=== PATIENT | female | born 1950 | race Caucasian/White ===

== ENCOUNTER 2018-04-21 21:20 | Inpatient (IN) | payer MEDICARE ==
[2018-04-21] MEDS ORDERED: SODIUM CHLORIDE 0.9% 1,000 ML IV STA ×3 (21:53→23:06)
--- NOTE | 2018-04-21 22:09 | ED ---
Psych HPI - General Chief Complaint: Altered Mental Status Stated Complaint: pickup order Time Seen by Provider: 04/21/18 21:47 Source: patient, police, EMS Mode of arrival: EMS - History of Present Illness Initial Comments: This 68-year-old white female presents for psychiatric evaluation. She apparently was brought in for some abnormal behavior. She is unable to give me any history whatsoever. She is continuously rambling about gibberish and does not stop talking and will not answer any questions. Old records to relate a history of schizophrenia there may have been some noncompliance with medications noted as well. History once again is limited due to patient's condition. - Related Data Home Medications Medication Instructions Recorded Confirmed Gabapentin [Neurontin] 300 mg PO BID 04/21/18 04/21/18 Pantoprazole [Protonix] 40 mg PO DAILY 04/21/18 04/21/18 QUEtiapine FUMARATE [SEROquel XR] 50 mg PO HS 04/21/18 04/21/18 Raloxifene [Evista] 60 mg PO DAILY 04/21/18 04/21/18 Previous Rx's Medication Instructions Recorded Atorvastatin [Lipitor] 10 mg PO HS #30 tab 06/18/16 Allergies Allergy/AdvReac Type Severity Reaction Status Date / Time No Known Allergies Allergy Verified 04/21/18 23:01 Review of Systems ROS Statement: Those systems with pertinent positive or pertinent negative responses have been documented in the HPI. ROS Other: All systems not noted in ROS Statement are negative. Past Medical History Past Medical History: COPD, Hyperlipidemia, Musculoskeletal Disorder, Thyroid Disorder Additional Past Medical History / Comment(s): brittle teeth can not eat anything hard needs to have soft diet chronic kidney disease; Ostopenia History of Any Multi-Drug Resistant Organisms: None Reported Past Surgical History: Adenoidectomy, Breast Surgery, Section, Tonsillectomy Additional Past Surgical History / Comment(s): biopsy benign left breast,c section, rhinoplasty Past Anesthesia/Blood Transfusion Reactions: No Reported Reaction Additional Past Anesthesia/Blood Transfusion Reaction / Comment(s): DOES NOT EVER WANT A BLOOD TRANSFUSION Past Psychological History: Anxiety, Bipolar, Schizophrenia Smoking Status: Former smoker Past Alcohol Use History: None Reported Past Drug Use History: None Reported - Past Family History Father History Unknown: Yes Family Medical History: Myocardial Infarction ([place]) Brother(s) Family Medical History: Cancer Additional Family Medical History / Comment(s): Brother had testicular cancer. General Exam - General Exam Comments Initial Comments: GENERAL: The patient is well nourished but appears dehydrated. VITAL SIGNS: Heart rate, blood pressure, respiratory rate reviewed as recorded in nurse's notes. EYES: Pupils are round and reactive. Extraocular movements are intact. No conjunctival / lid redness or swelling. ENT: No external evidence of injury, swelling, or ecchymosis. Airway is patent. Mucous membranes are dry. NECK: Nontender. No swelling or evidence of injury. No subcutaneous emphysema. Trachea is midline. No thyroid mass. HEART: Regular rate and rhythm. Good peripheral pulses. LUNGS/CHEST: Breath sounds clear and equal bilaterally. No rales, rhonchi, or wheezes. No ecchymosis, subcutaneous emphysema, or tenderness. ABDOMEN: Abdomen soft without tenderness. No palpable masses or organomegaly. No peritoneal signs. No abdominal wall swelling or ecchymosis. EXTREMITIES: No extremity tenderness. Normal muscle tone and function. No thoracolumbar tenderness. NEUROLOGIC: Sensation is grossly intact. Cranial nerve exam reveals face is symmetrical, tongue is midline, speech is clear. SKIN: No abrasions or ecchymosis is noted. No induration or masses noted. PSYCHIATRIC: Alert but appears quite manic. She is continually talking without stopping her answering questions. The speech is nonsensical. She appears poorly groomed. Limitations: altered mental status Course Vital Signs 04/21/18 21:49 Temperature 98.9 F Pulse Rate 103 H Respiratory 18 Rate Blood Pressure 131/73 O2 Sat by Pulse 99 Oximetry Medical Decision Making - Medical Decision Making The patient was seen and examined. All diagnostics are reviewed. An IV is started and she is hydrated. The laboratory is obtained and does show that the patient is in acute renal failure with a creatinine over 4. This is markedly worsened as compared to previous. She apparently has had some renal disease in the past as well. Her CO2 is decreased consistent with dehydration. She is further hydrated in the ER. Case is discussed with Dr. Lr who is covering for her PCP and he recommends admission under the service of Dr. Altman. The chest x-ray does not show any acute process. It is felt as though she likely avoided proper fluid hydration due to her psychiatric condition and thus went into renal failure. She will be admitted with a psychiatric consult. - Lab Data Result diagrams: 04/21/18 22:20 04/21/18 22:20 Lab Results 04/21/18 04/21/18 Range/Units 22:20 22:20 WBC 10.2 (3.8-10.6) k/uL RBC 4.32 (3.80-5.40) m/uL Hgb 12.5 (11.4-16.0) gm/dL Hct 38.8 (34.0-46.0) % MCV 89.8 (80.0-100.0) fL MCH 28.9 (25.0-35.0) pg MCHC 32.1 (31.0-37.0) g/dL RDW 14.4 (11.5-15.5) % Plt Count 335 (150-450) k/uL Neutrophils % 83 % Lymphocytes % 11 % Monocytes % 5 % Eosinophils % 0 % Basophils % 0 % Neutrophils # 8.4 H (1.3-7.7) k/uL Lymphocytes # 1.1 (1.0-4.8) k/uL Monocytes # 0.5 (0-1.0) k/uL Eosinophils # 0.0 (0-0.7) k/uL Basophils # 0.0 (0-0.2) k/uL Sodium 137 (137-145) mmol/L Potassium 5.0 (3.5-5.1) mmol/L Chloride 98 (98-107) mmol/L Carbon Dioxide 17 L (22-30) mmol/L Anion Gap 22 mmol/L BUN 68 H (7-17) mg/dL Creatinine 4.40 H (0.52-1.04) mg/dL Est GFR (CKD-EPI)AfAm 11 (>60 ml/min/1.73 sqM) Est GFR (CKD-EPI)NonAf 10 (>60 ml/min/1.73 sqM) Glucose 94 (74-99) mg/dL Calcium 10.1 (8.4-10.2) mg/dL Total Bilirubin 0.9 (0.2-1.3) mg/dL AST 671 H (14-36) U/L ALT 138 H (9-52) U/L Alkaline Phosphatase 104 (38-126) U/L Total Protein 6.8 (6.3-8.2) g/dL Albumin 4.4 (3.5-5.0) g/dL Disposition Clinical Impression: Acute psychosis, Schizophrenia, Acute renal failure, Dehydration Disposition: ADMITTED IP TO THIS HOSP Condition: Fair Is patient prescribed a controlled substance at d/c from ED?: No Time of Disposition: 00:23 Decision Date: 04/22/18 Decision Time: 00:23
[2018-04-21 22:34] LABS: Basophils % (A) 0 %; Eosinophils % (A) 0 %; HCT 38.8 % (34.0-46.0); HGB 12.5 gm/dL (11.4-16.0); Lymphocytes # (A) 1.1 k/uL (1.0-4.8); Lymphocytes % (A) 11 %; MCH 28.9 pg (25.0-35.0); MCHC 32.1 g/dL (31.0-37.0); MCV 89.8 fL (80.0-100.0); Mean Platelet Volume 7.1; Monocytes # (A) 0.5 k/uL (0-1.0); Monocytes % (A) 5 %; Neutrophils # (A) 8.4 k/uL (1.3-7.7); Neutrophils % (A) 83 %; Platelet Count 335 k/uL (150-450); RBC 4.32 m/uL (3.80-5.40); RDW 14.4 % (11.5-15.5); WBC 10.2 k/uL (3.8-10.6)
[2018-04-21 22:48] LABS: Albumin 4.4 g/dL (3.5-5.0); Calcium 10.1 mg/dL (8.4-10.2); Total Bilirubin 0.9 mg/dL (0.2-1.3); Total Protein 6.8 g/dL (6.3-8.2)
[2018-04-21] MEDS ORDERED: SODIUM CHLORIDE 0.9% 1,000 ML with MVI, ADULT NO.4 WITH VIT K 10 ML, THIAMINE 100 MG, F... IV ONE ×4 (23:16)
--- NOTE | 2018-04-21 23:17 | XR ---
EXAMINATION TYPE: XR chest 2V DATE OF EXAM: 04/21/2018 COMPARISON: 06/06/2016 HISTORY: Altered mental status TECHNIQUE: Frontal and lateral views of the chest are obtained. FINDINGS: Heart and mediastinum are normal. Lungs are clear. Diaphragm is normal. Bony thorax is int act. There is no pleural effusion. IMPRESSION: Normal chest. No change.
[2018-04-22] MEDS ORDERED: NALOXONE 0.4 MG/ML 1 ML VIAL IV PRN (00:24)
[2018-04-22] MEDS ORDERED: ONDANSETRON 4 MG/2 ML VIAL IVP PRN (00:24)
[2018-04-22 01:44] LABS: Prothrombin Time 9.6 sec (9.0-12.0)
[2018-04-22 01:55] LABS: Partial Thromboplastin Time 19.6 sec (22.0-30.0)
[2018-04-22] MEDS: HALOPERIDOL 2 MG TAB PO PRN (04:44)
[2018-04-22] MEDS: LORazepam 2 MG/ML INJ IV PRN ×2 (04:46→14:00)
--- NOTE | 2018-04-22 07:31 | HP ---
HISTORY AND PHYSICAL I am covering for Dr. Peng. CHIEF COMPLAINT: Change in mental status. HISTORY OF PRESENT ILLNESS: This 68-year-old woman with a past medical history of multiple medical problems including COPD, hyperlipidemia, history of hypothyroidism, history of anxiety, bipolar, schizophrenia being followed by Dr. Peng in the outpatient setting was apparently taken for psychiatric evaluation. Apparently patient was barricaded in her home and the pricing specialist have to bring the patient . The patient had abnormal behavior. The patient is confused and restless at this time, even though not combative. The patient was found to be severely dehydrated. Creatinine was elevated up to 4 indicating acute renal failure and the patient admitted for further evaluation and treatment. Currently unable to obtain a clear cut history from the patient. Most of the history was taken by my discussion with staff and as well as ER physician and review of the chart. PAST MEDICAL HISTORY: History of COPD, hyperlipidemia, musculoskeletal disorder, hypothyroidism, history of brittle teeth, history of anxiety, bipolar, schizophrenia. MEDICATIONS: Medications prior to admission include home medications are: 1. Evista 60 mg p.o. daily. 2. Seroquel XR 50 mg at bedtime. 3. Protonix 40 mg daily. 4. Neurontin 300 mg b.i.d. 5. Lipitor 10 mg at bedtime. ALLERGIES: Allergies are none. Family history, social history, review of systems could not be taken. Per chart, previous history of smoking and family history of myocardial infarction. PHYSICAL EXAMINATION: The patient is conscious, confused, restless and disoriented. Pulse is 103, blood pressure 131/73, respiration 18, temperature 98.9, pulse ox 99% on room air. HEENT: Conjunctivae normal. Oral mucosa dry. Neck is no jugular venous distention, no carotid bruit. No lymph node enlargement. CARDIOVASCULAR: S1 and S2 muffled. No S3, no S4. RESPIRATORY: Breath sounds diminished at the bases. A few scattered rhonchi. No crackles. ABDOMEN: Soft, nontender. No mass palpable. LEGS: No edema, no swelling. NERVOUS SYSTEM: Higher functions as mentioned earlier. Moves all 4 limbs. No focal motor or sensory deficits. LYMPHATICS: No lymphadenopathy of the neck, axillae or groin. SKIN: No ulcer, rash or bleeding. LABS: CBC within normal limits. Otherwise, creatinine 4.4. Neutrophils 8.4. AST is 671, ALT is 138. ASSESSMENT: 1. Severe dehydration, probably because of diminished p.o. intake with acute renal failure possibly prerenal acute tubular necrosis. 2. Change in mental status, acute psychosis. 3. Elevated LFTs, AST ALT, possibly hepatitis. 4. History of chronic obstructive pulmonary disease. 5. Hyperlipidemia. 6. Degenerative joint disease. 7. Hypothyroidism. 8. History of anxiety, bipolar, depression. RECOMMENDATIONS AND DISCUSSION: In this 68-year-old woman who presented with multiple complex medical issues, will monitor the patient closely. Continue the current medications. Continue symptomatic treatment. Will initiate the current medications. Otherwise, IV fluids, supplement multivitamins, monitor the creatinine closely. I would also recommend a psychiatric consultation, also order a drug screen and UA also. Home medications also will be continued, p.r.n. Haldol may be used at this time for sedation. Otherwise, will continue to monitor. The overall prognosis is guarded as mentioned earlier and further recommendations to follow. We will monitor the renal functions very closely. See orders for further details. MMODL / IJN: [id number] / MTDD
[2018-04-22] MEDS ORDERED: QUEtiapine 25 MG TAB PO SCH (09:00)
[2018-04-22] MEDS: HEPARIN SODIUM,PORCINE 5,000 UNIT/ML 1 ML VIAL SQ SCH ×2 (09:56→21:56)
[2018-04-22] MEDS: GABAPENTIN 300 MG CAP PO SCH ×2 (09:57→21:55)
[2018-04-22] MEDS: RALOXIFENE 60 MG TAB PO SCH (09:57)
[2018-04-22] MEDS: PANTOPRAZOLE 40 MG TABLET PO SCH (09:57)
[2018-04-22 10:05] LABS: Basophils % (A) 0 %; Eosinophils % (A) 0 %; HCT 34.5 % (34.0-46.0); HGB 11.2 gm/dL (11.4-16.0); Lymphocytes # (A) 1.6 k/uL (1.0-4.8); Lymphocytes % (A) 18 %; MCH 29.5 pg (25.0-35.0); MCHC 32.3 g/dL (31.0-37.0); MCV 91.3 fL (80.0-100.0); Mean Platelet Volume 6.9; Monocytes # (A) 0.5 k/uL (0-1.0); Monocytes % (A) 6 %; Neutrophils # (A) 6.6 k/uL (1.3-7.7); Neutrophils % (A) 74 %; Platelet Count 267 k/uL (150-450); RBC 3.78 m/uL (3.80-5.40); RDW 14.4 % (11.5-15.5); WBC 8.9 k/uL (3.8-10.6)
[2018-04-22 11:12] LABS: Potassium 4.3 mmol/L (3.5-5.1)
--- NOTE | 2018-04-22 11:24 | P.CN ---
Psychiatric Consult - . Consult date: 04/22/18 Consult:: 04/22/18 11:12 Patient was seen for a psych consult regarding psychosis. Patient is not able to provide any reliable useful information. She rambles continuously which often does not make much sense. Her previous records indicate she was diagnosed with bipolar disorder. Her recent lab report shows elevated BUN, creatinine, AST, ALT neutrophils and decreased RBC and hemoglobin. She is currently on Seroquel 25 mg twice a day and Neurontin 300 mg twice a day, when necessary Tylenol in addition to other medications. Assessment: Probable bipolar disorder per records, currently quite psychotic, renal insufficiency and other physical problems. Suggestion: Management of physical problems including renal insufficiency and probable infection someplace. Can increase Seroquel to 50 mg twice a day. Use of Neurontin in renally impaired person can cause Neurontin toxicity and it is recommended that we stop Neurontin. Since patient has elevated liver enzymes, use of when necessary Tylenol can be dangerous and I suggested it be discontinued. I will reassess the patient tomorrow about her condition, medications and possible transfer to psychiatric unit.
[2018-04-22 11:38] LABS: Albumin 3.3 g/dL (3.5-5.0); Total Bilirubin 0.6 mg/dL (0.2-1.3); Total Protein 5.5 g/dL (6.3-8.2)
[2018-04-22] MEDS ORDERED: SODIUM CHLORIDE 0.9% 1,000 ML with MVI, ADULT NO.4 WITH VIT K 10 ML, THIAMINE 100 MG, F... IV ONE ×4 (15:28)
--- NOTE | 2018-04-22 17:10 | PN ---
PROGRESS NOTE DATE OF SERVICE: 04/22/2018. I am covering for Dr. Peng. HISTORY: This 68-year-old woman is admitted with change in mental status with significant renal failure possibly secondary to acute tubular necrosis secondary to dehydration and diminished p.o. intake. Patient continues to be confused and restless at this time. IV fluids are being given. Psychiatry is following the patient closely. No chest pain. PAST MEDICAL HISTORY: Reviewed. REVIEW OF SYSTEMS: Could not be taken because of the change in mental status and other medical issues as mentioned earlier. CURRENT MEDICATIONS: 1. Tylenol 650 every 6 hours p.r.n. 2. Lipitor 10 mg at bedtime. 3. Neurontin 300 mg b.i.d. 4. Haldol 2 mg every p.m. 5. Heparin 5 subcutaneous b.i.d. 6. Ativan 1 mg every 6 hours. 7. Narcan. 8. Zofran. 9. Protonix. PHYSICAL EXAM: Patient is alert, oriented x3. VITAL SIGNS: Pulse 74, blood pressure 116/63, respirations 18, temperature 97.2 , pulse ox 97% on room air. HEENT: Conjunctivae normal. Oral mucosa dry. NECK: No JVD. CARDIOVASCULAR: RESPIRATORY: Breath sounds diminished in the bases. Few scattered rhonchi. No crackles. ABDOMEN: Soft, nontender. LEGS: No edema. NERVOUS SYSTEM: Diffusely weak. LABS: WBC 8, hemoglobin 11.2, creatinine 3.2, and AST is 504, ALT is 122, ASSESSMENT: 1. Severe dehydration because of diminished p.o. intake with acute renal failure , possible prerenal factors and acute tubular necrosis. 2. Change in mental status, acute psychosis. 3. Elevated LFT, AST ALT, possibly hepatitis. 4. History of chronic obstructive pulmonary disease. 5. Hyperlipidemia. 6. Degenerative joint disease. 7. Hypothyroidism. 8. History of anxiety, bipolar, depression. RECOMMENDATIONS: Continue current medication, continue to monitor. Symptomatic treatment. Otherwise at this time, we will monitor closely. IV fluids. Monitor creatinine closely. Guarded prognosis because of multiple complex medical issues. Further recommendations to follow. MMODL / IJN: [id number] / MTDD
[2018-04-22 17:16] LABS: Glucose,Whole Blood 69 mg/dL (75-99)
[2018-04-22 17:22] LABS: Appearance,Urine Clear (Clear); Bilirubin,Urine Negative (Negative); Blood,Urine Moderate (Negative); Color,Urine Light Yellow; Glucose,Urine (UA) Negative (Negative); Ketones,Urine 1+ (Negative); Leukocyte Esterase,Urine Negative (Negative); Mucus,Urine Rare /hpf; Nitrite,Urine Negative (Negative); Protein,Urine Negative (Negative); RBC,Urine <1 /hpf (0-5); Specific Gravity,Urine 1.007 (1.001-1.035); Urobilinogen,Urine <2.0 mg/dL (<2.0); WBC,Urine 1 /hpf (0-5)
[2018-04-22 17:28] LABS: Amphetamine Screen,Urine Not Detected (NotDetected); Barbiturate Screen,Urine Not Detected (NotDetected); Benzodiazepines Screen,Urine Not Detected (NotDetected); Cocaine Screen,Urine Not Detected (NotDetected); Methadone Screen, Urine Not Detected (NotDetected); Opiate Screen,Urine Not Detected (NotDetected); Oxycodone Screen, Urine Not Detected (NotDetected); Phencyclidine Screen,Urine Not Detected (NotDetected); Tricyclic Antidepressant,Urine Not Detected (NotDetected); Urn Cannabinoid Scrn Not Detected (NotDetected)
[2018-04-22 17:34] LABS: Glucose,Whole Blood 86 mg/dL (75-99)
[2018-04-22] MEDS: QUEtiapine 50 MG TAB PO SCH (21:55)
[2018-04-22] MEDS: ATORVASTATIN 10 MG TAB PO SCH (21:55)
[2018-04-23 03:54] LABS: Hepatitis A Antibody IgM Non-Reactive (Non-Reactive); Hepatitis B Core IgM Non-Reactive (Non-Reactive)
[2018-04-23 05:04] LABS: Glucose,Whole Blood 104 mg/dL (75-99)
[2018-04-23] MEDS: HALOPERIDOL 2 MG TAB PO PRN (07:31)
[2018-04-23] MEDS: GABAPENTIN 300 MG CAP PO SCH ×2 (07:32→19:48)
[2018-04-23] MEDS: PANTOPRAZOLE 40 MG TABLET PO SCH (07:32)
[2018-04-23] MEDS: QUEtiapine 50 MG TAB PO SCH (07:32)
[2018-04-23] MEDS: RALOXIFENE 60 MG TAB PO SCH (07:33)
[2018-04-23] MEDS: HEPARIN SODIUM,PORCINE 5,000 UNIT/ML 1 ML VIAL SQ SCH ×2 (07:36→19:48)
[2018-04-23 09:42] LABS: Basophils % (A) 0 %; Eosinophils # (A) 0.1 k/uL (0-0.7); Eosinophils % (A) 2 %; HGB 10.6 gm/dL (11.4-16.0); Lymphocytes # (A) 1.5 k/uL (1.0-4.8); Lymphocytes % (A) 31 %; MCH 29.8 pg (25.0-35.0); MCHC 33.3 g/dL (31.0-37.0); MCV 89.5 fL (80.0-100.0); Monocytes # (A) 0.3 k/uL (0-1.0); Monocytes % (A) 5 %; Neutrophils % (A) 60 %; Platelet Count 284 k/uL (150-450); RBC 3.58 m/uL (3.80-5.40); RDW 14.3 % (11.5-15.5); WBC 4.9 k/uL (3.8-10.6)
[2018-04-23 09:59] LABS: Albumin 2.5 g/dL (3.5-5.0); Potassium 3.7 mmol/L (3.5-5.1); Total Bilirubin 0.3 mg/dL (0.2-1.3); Total Protein 4.5 g/dL (6.3-8.2)
[2018-04-23] MEDS ORDERED: HALOPERIDOL LACTATE 5 MG/ML 1 ML VIAL IM PRN (10:14)
--- NOTE | 2018-04-23 11:36 | P.CN ---
Psychiatric Consult - . Consult date: 04/23/18 Consult:: 04/23/18 11:33 Patient was seen for a follow-up psych consult. Apparently she has been refusing IV fluids and is dehydrated. Her blood pressure is also low. Patient is quite talkative with pressured speech and flight of ideas. 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 She thinks she is ready to go home if we can give her the prescription. Suggestion: Discontinue Seroquel since she is hypotensive and dehydrated. Can try risperidone 1 mg twice a day for mood stabilization.
--- NOTE | 2018-04-23 12:48 | P.NPCON ---
History of Present Illness - Reason for Consult acute renal failure - History of Present Illness Reason for consultation: Acute kidney injury History of present illness: Patient is a 68-year-old female seen in renal consultation for acute kidney injury. Her creatinine was 3.21 admission and is down to 1.63 today with IV hydration. Patient presented to the hospital with abnormal behavior. She does have history of schizophrenia. Psychiatry is following the patient. Patient is not a reliable historian. She is talking continuously and not really making sense. She has a sitter at bedside. Her oral intake has been fair. She has been voiding. She is quite restless. Urinalysis is quite benign. I don't see lithium or NSAIDs in her home medications. Vital signs are stable. General: The patient appeared well nourished and normally developed. HEENT: Head exam is unremarkable. Neck is without jugular venous distension. LUNGS: Lungs are clear to auscultation and percussion. Breath sounds decreased. HEART: Rate and Rhythm are regular. First and second heart sounds normal. No murmurs, rubs or gallops. ABDOMEN: Abdominal exam reveals normal bowel sounds. Non-tender and non- distended. No evidence of peritonitis. EXTREMITITES: No clubbing, cyanosis, or edema. Past Medical History Past Medical History: COPD, Hyperlipidemia, Musculoskeletal Disorder, Thyroid Disorder Additional Past Medical History / Comment(s): brittle teeth can not eat anything hard needs to have soft diet chronic kidney disease; Ostopenia, son stted pt was told to stop taking thyroid meds. History of Any Multi-Drug Resistant Organisms: None Reported Past Surgical History: Adenoidectomy, Breast Surgery, Section, Tonsillectomy Additional Past Surgical History / Comment(s): biopsy left breast-benign,c section, rhinoplasty Past Anesthesia/Blood Transfusion Reactions: No Reported Reaction Additional Past Anesthesia/Blood Transfusion Reaction / Comment(s): DOES NOT EVER WANT A BLOOD TRANSFUSION Smoking Status: Current every day smoker - Past Family History Father History Unknown: Yes Family Medical History: Myocardial Infarction ([place]) Brother(s) Family Medical History: Cancer Additional Family Medical History / Comment(s): Brother had testicular cancer. Medications and Allergies Home Medications Medication Instructions Recorded Confirmed Type Atorvastatin [Lipitor] 10 mg PO HS #30 tab 06/18/04/21/18 Rx Gabapentin [Neurontin] 300 mg PO BID 04/21/18 04/21/18 History Pantoprazole [Protonix] 40 mg PO DAILY 04/21/18 04/21/18 History QUEtiapine FUMARATE [SEROquel XR] 50 mg PO HS 04/21/18 04/21/18 History Raloxifene [Evista] 60 mg PO DAILY 04/21/18 04/21/18 History Allergies Allergy/AdvReac Type Severity Reaction Status Date / Time No Known Allergies Allergy Verified 04/21/18 23:01 Physical Exam Vitals: Vital Signs Temp Pulse Resp BP Pulse Ox 04/23/18 05:53 96.6 F L 61 16 103/59 100 04/22/18 23:14 97.9 F 64 16 94/51 99 04/22/18 16:04 97.9 F 82 16 114/64 100 Intake and Output 04/22/18 04/23/18 04/23/18 22:59 06:59 14:59 Other: Voiding Method Bedside Commode Bedside Commode Bedside Commode # Voids 1 1 # Bowel Movements 1 Results - Lab Results Most recent lab results Calcium 8.0 mg/dL (8.4-10.2) L 04/23/18 09:16 04/23/18 09:16 04/23/18 09:16 Assessment and Plan Plan: Assessment: 1. Nonoliguric acute kidney injury mostly prerenal improved with IV hydration. Creatinine was 3.1 admission and is down to 1.63 today. Urinalysis is quite benign. 2. Rule out chronic kidney disease. Creatinine was in the range of 1.2-1.3 in 2016. 3. History of schizophrenia. Psychiatry following. Started on risperidone today. Seroquel discontinued. 4. Metabolic acidosis secondary to acute kidney injury. Improved. Plan: Continue with normal saline at 100 mL an hour as patient allows. Avoid nephrotoxic agents and hypotensive episodes. Repeat electrolytes in the morning. Thank you for the consultation. I will continue to follow the patient with you during her hospital stay.
[2018-04-23] MEDS: risperiDONE 1 MG TAB PO SCH ×2 (13:01→19:48)
[2018-04-23] MEDS: SODIUM CHLORIDE 0.9% 1,000 ML IV SCH ×2 (14:17→19:49)
[2018-04-23 14:57] VITALS: BMI 19.5
--- NOTE | 2018-04-23 15:42 | CT ---
EXAMINATION TYPE: CT brain wo con DATE OF EXAM: 04/23/2018 COMPARISON: NONE INDICATION: mental status changes DLP: 748.2 mGycm, Automated exposure control for dose reduction was used. CONTRAST: None CT of the brain is performed utilizing 3 mm thick sections through the posterior fossa and 3 mm thick sections through the remaining calvarium. Study is performed within 24 hours of arrival to the hosp [facility]. No abnormal hyperdensity is present to suggest an acute intracranial hemorrhage. No mass lesion is evident. No acute infarcts are evident. Ventricles and sulci are appropriate for the patient age. Paranasal sinuses and mastoid air cells within the [id number] are clear. IMPRESSIONS: 1. Normal CT Brain
--- NOTE | 2018-04-23 16:01 | PN ---
PROGRESS NOTE I am covering for Dr. Peng. DATE OF SERVICE: 04/23/2018 This 68-year-old woman who was admitted with acute psychotic features and mental status changes also had acute renal failure, possibly secondary to diminished p.o. intake. After IV fluids, creatinine is improving significantly. Sodium is slightly improved. Patient is still verbose and confused and disoriented. On exam, pulse is 61, blood pressure 103/59, respirations 16, temperature 96.6, pulse ox 100% on room air. HEENT: Conjunctivae normal. NECK: No jugular venous distention. CARDIOVASCULAR SYSTEM: S1, S2 muffled. RESPIRATORY SYSTEM: Breath sounds diminished at the bases. No rhonchi. No crackles. ABDOMEN: Soft, non-tender. LEGS: No edema. No swelling. NERVOUS SYSTEM: No focal deficit. LABS: WBC 4.9, hemoglobin 10.6, creatinine 1.6. AST is 282 and ALT is 96, improving. ASSESSMENT: 1. Severe dehydration because of diminished oral intake with acute renal failure, possibly prerenal factors, acute tubular necrosis. 2. Change in mental status, acute psychosis. 3. Elevated liver function tests AST, ALT; possibly hepatitis of undetermined etiology, improving. 4. History of chronic obstructive pulmonary disease. 5. Hyperlipidemia. 6. Degenerative joint disease. 7. Hypothyroidism. 8. History of anxiety, bipolar, depression. RECOMMENDATIONS AND DISCUSSION: I recommend to continue current medication, continue symptomatic treatment. Closely follow with Cardiology. Continue with the cautious IV hydration. I will cut down the IV fluids at this time. Repeat labs will be ordered tomorrow and Dr. Peng will follow. MMODL / IJN: [id number] /
[2018-04-23] MEDS: ATORVASTATIN 10 MG TAB PO SCH (19:48)
[2018-04-24] MEDS: SODIUM CHLORIDE 0.9% 1,000 ML IV SCH ×2 (05:30→18:32)
[2018-04-24] MEDS: risperiDONE 1 MG TAB PO SCH ×2 (08:34→20:09)
[2018-04-24] MEDS: GABAPENTIN 300 MG CAP PO SCH ×2 (08:34→20:09)
[2018-04-24] MEDS: RALOXIFENE 60 MG TAB PO SCH (08:34)
[2018-04-24] MEDS: PANTOPRAZOLE 40 MG TABLET PO SCH (08:34)
[2018-04-24] MEDS: HEPARIN SODIUM,PORCINE 5,000 UNIT/ML 1 ML VIAL SQ SCH ×2 (08:36→20:09)
--- NOTE | 2018-04-24 11:35 | P.PN ---
Subjective Patient is seen in follow for acute kidney injury. Renal function improving with IV hydration with creatinine down to 1.63 as of yesterday. She's currently maintained on normal saline at 100 mL an hour. Patient still continues to talk continuously and is not really making sense. Vital signs are stable. General: The patient appeared well nourished and normally developed. HEENT: Head exam is unremarkable. Neck is without jugular venous distension. LUNGS: Lungs are clear to auscultation and percussion. Breath sounds decreased. HEART: Rate and Rhythm are regular. First and second heart sounds normal. No murmurs, rubs or gallops. ABDOMEN: Abdominal exam reveals normal bowel sounds. Non-tender and non- distended. No evidence of peritonitis. EXTREMITITES: No clubbing, cyanosis, or edema. Objective - Vital Signs Vital signs: Vital Signs Temp 97.4 F L 04/24/18 07:00 Pulse 80 04/24/18 07:00 Resp 16 04/24/18 07:00 BP 124/71 04/24/18 07:00 Pulse Ox 97 04/24/18 07:00 Intake & Output 04/23/18 04/24/18 04/24/18 18:59 06:59 18:59 Intake Total 550 Output Total 2 Balance 548 Weight 49.895 kg Intake: Oral 550 Output: Urine/Stool Mix 2 Other: Voiding Method Bedside Commode Bedside Commode Bedside Commode # Voids 3 1 - Labs CBC & Chem 7: 04/23/18 09:16 04/23/18 09:16 Assessment and Plan Plan: Assessment: 1. Nonoliguric acute kidney injury mostly prerenal improved with IV hydration. Creatinine was 3.1 admission and is down to 1.63 as of yesterday. Urinalysis is quite benign. 2. Rule out chronic kidney disease. Creatinine was in the range of 1.2-1.3 in 2016. 3. History of schizophrenia. Psychiatry following. 4. Metabolic acidosis secondary to acute kidney injury. Improved. Plan: Continue with normal saline at 100 mL an hour. Avoid nephrotoxic agents and hypotensive episodes. Repeat electrolytes in the morning.
--- NOTE | 2018-04-24 15:12 | P.CN ---
Psychiatric Consult - . Consult date: 04/24/18 Consult:: 04/24/18 15:05 Patient was seen for a follow-up psychiatric consult. Today patient looks brighter, has better hygiene and is more cooperative. She has IV fluid going on. She also reports that she feels better. She said she lives with her and son, has her own psychiatrist who prescribes her medication and also sees a therapist. She requested not to make any changes on her medications she is taking now since she is feeling better. She is taking her risperidone and does not have any adverse effect. This is a white female who was seen in her bed. She is polite friendly cheerful and cooperative. She does not show any psychomotor agitation or retardation. Her speech is spontaneous and over inclusive. Her mood is euthymic to cheerful and affect is appropriate to the thought content. She refused to tell me the job she is doing or the car she is driving which came up in the conversation. She continues to deny suicide and homicide thoughts. She is oriented with adequate memory concentration etc. Assessment: Patient has improved quite a bit and she does not think she wants to come to psych unit upon discharge. Suggestion: Continue risperidone 1 mg twice a day. Patient can be discharged when medically cleared. Please provide a prescription for risperidone 1 mg twice a day for at least 15 days, for Neurontin if necessary and schedule an outpatient psychiatry appointment within 1 week of discharge.
[2018-04-24] MEDS: ATORVASTATIN 10 MG TAB PO SCH (20:09)
[2018-04-25] MEDS: ACETAMINOPHEN TAB 325 MG TAB PO PRN ×2 (05:00→13:54)
[2018-04-25] MEDS: SODIUM CHLORIDE 0.9% 1,000 ML IV SCH (05:02)
[2018-04-25 07:40] LABS: Basophils % (A) 0 %; Eosinophils # (A) 0.2 k/uL (0-0.7); Eosinophils % (A) 3 %; HCT 38.3 % (34.0-46.0); HGB 12.3 gm/dL (11.4-16.0); Lymphocytes # (A) 2.3 k/uL (1.0-4.8); Lymphocytes % (A) 43 %; MCH 28.9 pg (25.0-35.0); MCHC 32.2 g/dL (31.0-37.0); MCV 89.8 fL (80.0-100.0); Mean Platelet Volume 7.1; Monocytes # (A) 0.4 k/uL (0-1.0); Monocytes % (A) 7 %; Neutrophils # (A) 2.4 k/uL (1.3-7.7); Neutrophils % (A) 44 %; Platelet Count 317 k/uL (150-450); RBC 4.26 m/uL (3.80-5.40); RDW 14.4 % (11.5-15.5); WBC 5.4 k/uL (3.8-10.6)
[2018-04-25 07:51] LABS: Albumin 2.8 g/dL (3.5-5.0); Calcium 8.5 mg/dL (8.4-10.2); Magnesium 1.8 mg/dL (1.6-2.3); Potassium 4.3 mmol/L (3.5-5.1); Total Bilirubin 0.3 mg/dL (0.2-1.3); Total Protein 4.9 g/dL (6.3-8.2)
[2018-04-25] MEDS: RALOXIFENE 60 MG TAB PO SCH (07:59)
[2018-04-25] MEDS: PANTOPRAZOLE 40 MG TABLET PO SCH (07:59)
[2018-04-25] MEDS: risperiDONE 1 MG TAB PO SCH (07:59)
[2018-04-25] MEDS: GABAPENTIN 300 MG CAP PO SCH ×2 (07:59→22:01)
[2018-04-25] MEDS: HEPARIN SODIUM,PORCINE 5,000 UNIT/ML 1 ML VIAL SQ SCH ×2 (08:01→22:01)
--- NOTE | 2018-04-25 09:32 | P.PN ---
Subjective Patient is seen in follow for acute kidney injury. Renal function improving with IV hydration with creatinine down to 0.99 today. She's currently maintained on normal saline at 100 mL an hour. No significant improvement in her mentation. She talks continuously and is not making much sense. Vital signs are stable. General: The patient appeared well nourished and normally developed. HEENT: Head exam is unremarkable. Neck is without jugular venous distension. LUNGS: Lungs are clear to auscultation and percussion. Breath sounds decreased. HEART: Rate and Rhythm are regular. First and second heart sounds normal. No murmurs, rubs or gallops. ABDOMEN: Abdominal exam reveals normal bowel sounds. Non-tender and non- distended. No evidence of peritonitis. EXTREMITITES: No clubbing, cyanosis, or edema. Objective - Vital Signs Vital signs: Vital Signs Temp 97.4 F L 04/25/18 06:00 Pulse 99 04/25/18 06:00 Resp 16 04/25/18 06:00 BP 128/83 04/25/18 06:00 Pulse Ox 96 04/25/18 06:00 Intake & Output 04/24/18 04/25/18 04/25/18 18:59 06:59 18:59 Intake Total 200 1600 Balance 200 1600 Intake: Intake, IV Titration 1600 Amount Sodium Chloride 0.9% 1, 1600 000 ml @ 100 mls/hr IV . Q10H [facility] Rx#:[id number] Oral 200 Other: Voiding Method Bedside Commode # Voids 3 # Bowel Movements 2 - Labs CBC & Chem 7: 04/25/18 07:03 04/25/18 07:03 Labs: Abnormal Lab Results - Last 24 Hours (Table) 04/25/18 Range/Units 07:03 Chloride 111 H (98-107) mmol/L BUN 19 H (7-17) mg/dL AST 153 H (14-36) U/L ALT 97 H (9-52) U/L Total Protein 4.9 L (6.3-8.2) g/dL Albumin 2.8 L (3.5-5.0) g/dL Assessment and Plan Plan: Assessment: 1. Nonoliguric acute kidney injury mostly prerenal improved with IV hydration. Creatinine was 3.1 admission and is down to 0.99 today. Urinalysis is quite benign. 2. Rule out chronic kidney disease. Creatinine was in the range of 1.2-1.3 in 2016. 3. History of schizophrenia. Psychiatry following. 4. Metabolic acidosis secondary to acute kidney injury. Improved. Plan: I will decrease the rate of 0.9 saline to 50 mL an hour. Avoid nephrotoxic agents and hypotensive episodes. Repeat electrolytes in the morning.
--- NOTE | 2018-04-25 11:38 | P.CN ---
Psychiatric Consult - . Consult date: 04/25/18 Consult:: 04/25/18 11:36 Patient was seen for a follow-up psych consult. Patient is quite restless and agitated, talkative, refuses to follow directions and is uncooperative. She also has pressured speech, elated mood and is grandiose. Suggestion: Since patient refuses to come to psych unit, which she needs, she needs to be petitioned by the nurse or her family and has to have flustered and then she can be transferred to psychiatric unit.
--- NOTE | 2018-04-25 13:30 | HP ---
HISTORY AND PHYSICAL ADMITTING NOTE: Patient was admitted during my absence for acute renal failure. She has a long- standing history of mental health issues as well. Her renal status is probably prerenal. MMODL / IJN: [id number] /
--- NOTE | 2018-04-25 13:33 | PN ---
PROGRESS NOTE DATE OF SERVICE: 04/24/2018 CHIEF COMPLAINT: Renal failure and schizophrenia. HISTORY OF PRESENT ILLNESS: This lady is fully awake and alert, but inappropriate. BUN and creatinine are improving with IV rehydration. PHYSICAL EXAM: Chest is clear. Cardiac exam is normal. Abdomen is soft, nontender. IMPRESSION: 1. Prerenal azotemia. 2. Schizophrenia. PLAN: Continue with IV fluids and continue to monitor renal function. She is difficult to manage. MMODL / IJN: [id number] /
[2018-04-25] MEDS: HALOPERIDOL 2 MG TAB PO PRN ×2 (13:54→22:27)
[2018-04-25] MEDS: risperiDONE 2 MG TAB PO SCH ×2 (14:19→22:01)
[2018-04-25 16:51] LABS: Hepatitis A Antibody IgM Non-Reactive (Non-Reactive); Hepatitis B Core IgM Non-Reactive (Non-Reactive); Hepatitis C IgG Antibody Non-Reactive (Non-Reactive)
--- NOTE | 2018-04-25 18:39 | PN ---
PROGRESS NOTE CHIEF COMPLAINT: Renal failure and schizophrenia. HISTORY OF PRESENT ILLNESS: This lady is becoming more and more agitated. Renal function has improved with rehydration. Her liver functions are elevated, and this will be studied. Calcium is also slightly low and she is anemic. Review of systems cannot be obtained due to her agitated and confused behavior and state. Chest is clear. Cardiac exam is normal. The abdomen is soft and non-tender. IMPRESSION: 1. Renal failure. 2. Dehydration. 3. Elevated liver function studies. 4. Hypocalcemia. 5. Anemia. PLAN: Work on discharge plan. She is being seen by Psychiatry and they want to commit her to inpatient psychiatric care. MMODL / IJN: [id number] /
[2018-04-25] MEDS: ATORVASTATIN 10 MG TAB PO SCH (22:01)
[2018-04-25 23:06] VITALS: RESP 24
[2018-04-26] MEDS: SODIUM CHLORIDE 0.9% 1,000 ML IV SCH (02:01)
[2018-04-26 06:25] VITALS: BP 137/82; PULSE 78; TEMP 96.5
[2018-04-26] MEDS: ACETAMINOPHEN TAB 325 MG TAB PO PRN (06:48)
[2018-04-26 08:17] LABS: Basophils % (A) 0 %; Eosinophils # (A) 0.2 k/uL (0-0.7); Eosinophils % (A) 3 %; HCT 38.6 % (34.0-46.0); HGB 12.7 gm/dL (11.4-16.0); Lymphocytes # (A) 2.3 k/uL (1.0-4.8); Lymphocytes % (A) 40 %; MCH 29.6 pg (25.0-35.0); MCHC 32.8 g/dL (31.0-37.0); MCV 90.2 fL (80.0-100.0); Mean Platelet Volume 7.7; Monocytes # (A) 0.3 k/uL (0-1.0); Monocytes % (A) 6 %; Neutrophils # (A) 2.7 k/uL (1.3-7.7); Neutrophils % (A) 48 %; Platelet Count 306 k/uL (150-450); RBC 4.28 m/uL (3.80-5.40); RDW 14.9 % (11.5-15.5); WBC 5.7 k/uL (3.8-10.6)
[2018-04-26 08:31] LABS: Albumin 2.8 g/dL (3.5-5.0); Potassium 4.2 mmol/L (3.5-5.1); Total Bilirubin 0.4 mg/dL (0.2-1.3); Total Protein 5.1 g/dL (6.3-8.2)
[2018-04-26] MEDS: GABAPENTIN 300 MG CAP PO SCH (08:40)
[2018-04-26] MEDS: RALOXIFENE 60 MG TAB PO SCH (08:40)
[2018-04-26] MEDS: PANTOPRAZOLE 40 MG TABLET PO SCH (08:40)
[2018-04-26] MEDS: HEPARIN SODIUM,PORCINE 5,000 UNIT/ML 1 ML VIAL SQ SCH (08:40)
[2018-04-26] MEDS: LORazepam 2 MG/ML INJ IV PRN (08:41)
[2018-04-26] MEDS: risperiDONE 2 MG TAB PO SCH (08:41)
--- NOTE | 2018-04-26 12:42 | PN ---
PROGRESS NOTE DATE OF SERVICE: 04/26/18 CHIEF COMPLAINT: Renal failure and schizophrenia. HISTORY OF PRESENT ILLNESS: This lady is stable and she has been seen by Psychiatry. She is being petitioned and she will either go to the psych floor or be sent to inpatient facility out of the area. PHYSICAL EXAM: Is otherwise unchanged. She is very disoriented. IMPRESSION: 1. Acute psychosis. 2. Prerenal azotemia. 3. Dehydration. PLAN: The patient petitioned into inpatient psych. MMDILIP / GORDONN: [id number] /
--- NOTE | 2018-04-27 22:11 | DS ---
DISCHARGE SUMMARY CHIEF COMPLAINT: Renal failure, dehydration and schizophrenia. HISTORY OF PRESENT ILLNESS AND PHYSICAL EXAM: Details of this lady's history and physical can be found in the initial workup. LABORATORY STUDIES: While she was in a hospital she had laboratory studies, details of which can be found in the laboratory section of the chart. COURSE IN HOSPITAL: After admission she was placed on bedrest, started on intravenous fluids and she was seen by med renal. BUN and creatinine came down with hydration. She remained very agitated and inappropriate and she was seen by Psychiatry. It was felt that she could benefit from inpatient psychiatric treatment and she was transferred to the psych floor on the . FINAL DIAGNOSES: 1. Prerenal azotemia. 2. Dehydration. 3. Schizophrenia. OPERATIONS: None. CONSULTATIONS: Nephrology and psychiatry. She is improved. MMODL / GORDONN: [id number] /
--- NOTE | 2018-05-17 17:23 | DS ---
DISCHARGE SUMMARY CHIEF COMPLAINT: Mental status changes and renal failure with dehydration. HISTORY OF PRESENT ILLNESS AND PHYSICAL EXAM: Details of this lady's history and physical can be found in the initial workup. LABORATORY STUDIES: While she was in a hospital she had laboratory studies, details which can be found in the laboratory section of chart. COURSE IN HOSPITAL: After admission she was placed on bedrest and started on intravenous fluids with hydration. Her BUN and creatinine came down to near normal. She remained extremely agitated and psychotic and seen by Psychiatry and arrangements were made for her to be transferred to psych unit on April 26. FINAL DIAGNOSES: 1. Mental status changes. 2. Acute psychosis. 3. Schizophrenia. 4. Dehydration. 5. Prerenal azotemia. 6. Chronic remove chronic renal failure. OPERATIONS: None. CONSULTATION: Med renal and psychiatry. She is improved. MMODL / IJN: [id number] /
== END 2018-04-26 13:36 | DRG 683 ==
LOC: EC 21:20 → 4MS4W 04-22 00:24
PROVIDERS: ADMIT Family Medicine; ATTEND Family Medicine
DX: N17.9 Acute kidney failure, unspecified (principal); F23 Brief psychotic disorder; E87.2 Acidosis; E86.0 Dehydration; J44.9 Chronic obstructive pulmonary disease, unspecified; E78.5 Hyperlipidemia, unspecified; E03.9 Hypothyroidism, unspecified; F41.9 Anxiety disorder, unspecified; F31.9 Bipolar disorder, unspecified; M19.90 Unspecified osteoarthritis, unspecified site; D64.9 Anemia, unspecified; R94.5 Abnormal results of liver function studies; E83.51 Hypocalcemia; F17.200 Nicotine dependence, unspecified, uncomplicated; I95.9 Hypotension, unspecified; Z79.899 Other long term (current) drug therapy; Z82.49 Family history of ischemic heart disease and other diseases of the circulatory system; Z98.890 Other specified postprocedural states
CPT/HCPCS: 36415; 70450; 71046; 80053; 80074; 80306; 81001; 82075; 82140; 83735; 85025; 85610; 85730; 86705; 86709; 86803; 96361; 96365; 96366; 96375; 96376; 99285

== ENCOUNTER 2018-04-26 12:39 | Inpatient (IN) | payer MEDICARE ==
[2018-04-26] MEDS ORDERED: MAG HYDROX/AL HYDROX/SIMETH 30 ML CUP PO PRN (14:40)
[2018-04-26] MEDS ORDERED: MAGNESIUM HYDROXIDE 2,400 MG/10 ML CUP PO PRN (14:40)
[2018-04-26] MEDS ORDERED: OLANZapine 5 MG TAB PO ONE ×2 (15:00→21:00)
[2018-04-26] MEDS: ATORVASTATIN 10 MG TAB PO SCH (21:17)
[2018-04-26] MEDS: GABAPENTIN 300 MG CAP PO SCH (21:17)
[2018-04-26 22:34] LABS: Cholesterol 151 mg/dL (<200); HDL Cholesterol 54 mg/dL (40-60); LDL Cholesterol,Calculated 64 mg/dL (0-99); Triglycerides 166 mg/dL (<150)
[2018-04-27] MEDS: LORazepam 1 MG TAB PO PRN ×2 (00:09→15:10)
[2018-04-27] MEDS: LEVOTHYROXINE 125 MCG TAB PO SCH (05:36)
[2018-04-27] MEDS: PANTOPRAZOLE 40 MG TABLET PO SCH (08:39)
[2018-04-27] MEDS: RALOXIFENE 60 MG TAB PO SCH (08:39)
[2018-04-27] MEDS: GABAPENTIN 300 MG CAP PO SCH ×2 (08:39→20:00)
[2018-04-27] MEDS ORDERED: OLANZapine 10 MG TAB PO SCH ×2 (09:00→21:00)
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
--- NOTE | 2018-04-27 18:41 | CONS ---
CONSULTATION HISTORY OF PRESENT ILLNESS: This lady is transferred to the psych unit for management of her schizophrenia and bipolar depression. REVIEW OF SYSTEMS: She is not offering up any complaints at this time. PHYSICAL EXAM: Her vital signs are normal. Head, ears, eyes, nose, mouth, and throat were normal except for a small lesion in the cheek just below the lateral corner of the left eye. Chest is clear to auscultation. Cardiac exam demonstrates normal sinus rhythm. There are no murmurs or extra sounds. The abdomen is soft, nontender. Extremities normal. IMPRESSION: 1. Schizophrenia, paranoid type. 2. Bipolar depression. RECOMMENDATIONS: Continue with psychiatric treatment. MMODL / IJN: [id number] /
[2018-04-27] MEDS: ATORVASTATIN 10 MG TAB PO SCH (20:00)
[2018-04-28] MEDS: LORazepam 1 MG TAB PO PRN ×2 (01:53→22:27)
[2018-04-28] MEDS: LEVOTHYROXINE 125 MCG TAB PO SCH (05:28)
[2018-04-28] MEDS: PANTOPRAZOLE 40 MG TABLET PO SCH (08:43)
[2018-04-28] MEDS: GABAPENTIN 300 MG CAP PO SCH ×3 (08:43→21:14)
[2018-04-28] MEDS: RALOXIFENE 60 MG TAB PO SCH (08:43)
--- NOTE | 2018-04-28 09:20 | P.PN ---
Progress Note - Text Progress Note Date: 04/28/18 Patient was seen for a follow-up examination. She continues to be very talkative and intrusive and insists that she is doing well and is ready to go home. Patient's labwork indicates she is hypothyroid and was started on Synthroid. She is on Lipitor for hyperlipidemia and is on Zyprexa 10 mg at bedtime. She is on Neurontin 300 mg twice a day. She is on several other medications for other physical problems. Her previous records indicate she was on Haldol without any adverse effects. This is a white ambulatory female with adequate hygiene. She is very talkative with pressured speech and flight of ideas. Her mood is elated and affect is appropriate to the thought content. She denies suicide and homicide thoughts. She denies hallucinations. 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 She is well oriented with adequate memory. Her insight is very poor and judgment is impaired as evidenced by her psychotic thinking. Diagnostic impression: Bipolar 1 disorder most recent episode manic with psychotic features F 31.2. NKDA. Hyperlipidemia. GERD. Hypothyroidism. Plan: Change Zyprexa to Haldol since she has hyperlipidemia. Increase Neurontin to 600 mg twice a day. Continue groups and other therapies.
[2018-04-28] MEDS ORDERED: HALOPERIDOL 5 MG TAB PO PRN (10:33)
[2018-04-28] MEDS ORDERED: HALOPERIDOL 5 MG TAB ONE ×2 (10:34→10:35)
[2018-04-28] MEDS: HALOPERIDOL 5 MG TAB PO PRN (16:34)
[2018-04-28] MEDS: HALOPERIDOL 5 MG TAB PO SCH ×2 (21:01→21:14)
[2018-04-28] MEDS: ATORVASTATIN 10 MG TAB PO SCH ×2 (21:01→21:14)
[2018-04-28] MEDS: ACETAMINOPHEN TAB 325 MG TAB PO PRN (23:37)
[2018-04-29] MEDS: ACETAMINOPHEN TAB 325 MG TAB PO PRN ×3 (05:05→21:09)
[2018-04-29] MEDS: LEVOTHYROXINE 125 MCG TAB PO SCH (05:06)
[2018-04-29] MEDS: RALOXIFENE 60 MG TAB PO SCH (08:08)
[2018-04-29] MEDS: PANTOPRAZOLE 40 MG TABLET PO SCH (08:09)
[2018-04-29] MEDS: GABAPENTIN 300 MG CAP PO SCH ×2 (08:09→20:59)
[2018-04-29] MEDS: HALOPERIDOL 5 MG TAB PO PRN (08:11)
[2018-04-29] MEDS: LORazepam 1 MG TAB PO PRN ×2 (08:11→23:54)
--- NOTE | 2018-04-29 10:24 | P.PN ---
Progress Note - Text Progress Note Date: 04/29/18 Patient was seen for a follow up exam.She had refused her HS haldol last night and got PRN Ativan and haldol this AM. She is a little quieter and more cooperative now. She has not been attending all groups. She has been getting agitated, threatening law suits etc. This is a white ambulatory female with adequate hygiene. She gets hyperactive, talkative with pressured speech, flight of ideas etc. Mood is cheerful and affect is increased in intensity. She denies suicidal and homicidal thoughts. She is quite grandiose. She is well oriented with adequate memory, general knowledge etc. Her insight is poor and judgement is quite impaired. Plan: Continue Neurontin 600 mg twice a day, change Haldol 10 mg at bedtime to 5 mg 3 times a day, groups and other therapies.
[2018-04-29 14:53] LABS: Hemoglobin A1C 5.4 % (4.0-6.0)
[2018-04-29] MEDS: HALOPERIDOL 5 MG TAB PO SCH ×2 (15:59→20:59)
[2018-04-29] MEDS: ATORVASTATIN 10 MG TAB PO SCH (20:59)
[2018-04-30] MEDS: LEVOTHYROXINE 125 MCG TAB PO SCH (05:14)
[2018-04-30] MEDS: ACETAMINOPHEN TAB 325 MG TAB PO PRN (05:14)
[2018-04-30] MEDS: RALOXIFENE 60 MG TAB PO SCH (08:31)
[2018-04-30] MEDS: HALOPERIDOL 5 MG TAB PO SCH ×3 (08:31→20:32)
[2018-04-30] MEDS: PANTOPRAZOLE 40 MG TABLET PO SCH (08:31)
[2018-04-30] MEDS: GABAPENTIN 300 MG CAP PO SCH (08:31)
--- NOTE | 2018-04-30 09:39 | P.PN ---
Progress Note - Text Progress Note Date: 04/30/18 Patient knocked on my door stating that she wanted to talk to me. She went on multiple information, complaints, appreciations at different things different people etc. She has been knocking on my door multiple times demanding to be seen, wants things to be done for her etc. She was agitated last night and received when necessary Ativan. She insists that she does not like Ativan and wants to take Xanax on a when necessary basis. She also wants me to order her Dalmane to help her sleep. She has edema of both feet and it appears to be inflamed. I called the cash sales audit clerk and she will make the appointment for an relief manager to come and take a look at her feet. Patient was counseled about her condition and she agreed to get the dose of Neurontin increased. I cannot start her on lithium since she has kidney problems, cannot start her on Depakote since she has elevated liver enzymes and cannot give her Zyprexa since she has hyperlipidemia. She was counseled about all these things. This is a white ambulatory female with adequate hygiene. She is hyperactive, extremely talkative with flight of ideas and pressured speech. 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 she denies suicide and homicide thoughts. She also denies hallucinations. She knows she has bipolar disorder but is extremely choosy in what kind of medicines she will take. Plan: Continue Haldol 5 mg 3 times a day, increase Neurontin to 800 mg twice a day, change when necessary Ativan to when necessary Xanax per her request and she will be seen by relief manager regarding pedal edema with inflammation. Continue groups and other activities.
[2018-04-30] MEDS: ALPRAZolam 0.5 MG TAB PO PRN ×2 (12:33→21:49)
[2018-04-30] MEDS: GABAPENTIN 400 MG CAP PO SCH (20:31)
[2018-04-30] MEDS: ATORVASTATIN 10 MG TAB PO SCH (20:32)
[2018-05-01] MEDS: LEVOTHYROXINE 125 MCG TAB PO SCH (05:46)
[2018-05-01] MEDS: RALOXIFENE 60 MG TAB PO SCH (08:27)
[2018-05-01] MEDS: FUROSEMIDE 20 MG TAB PO SCH (08:27)
[2018-05-01] MEDS: PANTOPRAZOLE 40 MG TABLET PO SCH (08:27)
[2018-05-01] MEDS: HALOPERIDOL 5 MG TAB PO SCH ×3 (08:27→20:54)
[2018-05-01] MEDS: GABAPENTIN 400 MG CAP PO SCH (08:27)
--- NOTE | 2018-05-01 10:38 | P.PN ---
Progress Note - Text Progress Note Date: 05/01/18 Patient was seen for a follow-up examination. She has been knocking on my door multiple times him and though I was busy with other patients. Asking her to come later was not helpful. He continues to be intrusive, talkative, demanding and generally hyperactive and poorly cooperative. But she has been taking her medications. This is a white ambulatory female with adequate hygiene. She wears multiple layers of clothing. She is hyperactive, changes her posture frequently gets up walks around pulls things etc. Her speech is spontaneous, pressured with flight of ideas. Her mood is elated and affect is increased in intensity. She continues to make multiple grandiose statements. She denies suicide and homicide ideas. She is oriented with adequate memory General knowledge etc. Plan: Increase Neurontin to 1200 mg twice a day, continue Haldol 5 mg 3 times a day. Check liver function kidney function, TSH and CBC to see if she could be tried on other mood stabilizers. Continue groups and other therapies.
[2018-05-01 11:51] LABS: Basophils # (A) 0.1 k/uL (0-0.2); Basophils % (A) 1 %; Eosinophils # (A) 0.1 k/uL (0-0.7); Eosinophils % (A) 2 %; HCT 34.9 % (34.0-46.0); HGB 11.4 gm/dL (11.4-16.0); Lymphocytes # (A) 2.1 k/uL (1.0-4.8); Lymphocytes % (A) 32 %; MCHC 32.6 g/dL (31.0-37.0); Mean Platelet Volume 6.5; Monocytes # (A) 0.4 k/uL (0-1.0); Monocytes % (A) 7 %; Neutrophils # (A) 3.7 k/uL (1.3-7.7); Neutrophils % (A) 57 %; Platelet Count 327 k/uL (150-450); RBC 3.79 m/uL (3.80-5.40); RDW 15.6 % (11.5-15.5); WBC 6.6 k/uL (3.8-10.6)
[2018-05-01 12:01] LABS: Calcium 9.3 mg/dL (8.4-10.2); Potassium 4.4 mmol/L (3.5-5.1)
--- NOTE | 2018-05-01 14:34 | P.EN ---
Patient's lab report shows AST of 44 ALT 56 both of which are elevated. BUN 26 creatinine 1.17 both are elevated. TSH has come down from 40.900 to 34.600 which is still very high. With elevated liver function tests and impaired renal function, I cannot use lithium, Depakote, Trileptal etc. for mood stabilization. Her Neurontin was just increased this morning. Plan: Increase Synthroid to 200 g a day.
[2018-05-01] MEDS: ALPRAZolam 0.5 MG TAB PO PRN ×2 (15:00→23:21)
[2018-05-01] MEDS: ATORVASTATIN 10 MG TAB PO SCH (20:55)
[2018-05-01] MEDS ORDERED: GABAPENTIN 400 MG CAP PO SCH (21:00)
[2018-05-01] MEDS ORDERED: ZIPRASIDONE 20 MG VIAL IM STA (23:49)
[2018-05-02] MEDS: LEVOTHYROXINE 100 MCG TAB PO SCH (05:53)
[2018-05-02] MEDS: FUROSEMIDE 20 MG TAB PO SCH (08:40)
[2018-05-02] MEDS: HALOPERIDOL 5 MG TAB PO SCH ×3 (08:40→21:06)
[2018-05-02] MEDS: PANTOPRAZOLE 40 MG TABLET PO SCH (08:40)
[2018-05-02] MEDS: RALOXIFENE 60 MG TAB PO SCH (08:40)
[2018-05-02] MEDS: ALPRAZolam 0.5 MG TAB PO PRN ×3 (08:44→23:07)
--- NOTE | 2018-05-02 10:52 | P.PN ---
Progress Note - Text Progress Note Date: 05/02/18 Patient was seen for follow-up examination. She has refused to sign her court defferal today. I had stopped her Neurontin since she has been having pedal edema and it is one of the side effects from Neurontin. Patient continues to be extremely talkative very intrusive and demanding hyperactive etc. She still has impaired kidney and liver functions. This is a white ambulatory female with adequate hygiene. She is hyperactive, demanding, intrusive and extremely talkative. She has pressured speech and flight of ideas. She is also grandiose, gets irritable etc. She denies suicide and homicide thoughts. She is oriented with adequate memory general knowledge etc. Plan: Increase Haldol to 10 mg 3 times a day, started on a small dose of lithium and since she has impaired kidney function and monitor lithium level closely. Continue groups and other therapies.
[2018-05-02] MEDS: LITHIUM CARBONATE 300 MG CAP PO SCH (11:00)
[2018-05-02] MEDS: ATORVASTATIN 10 MG TAB PO SCH (21:06)
[2018-05-03] MEDS: LEVOTHYROXINE 100 MCG TAB PO SCH (06:32)
[2018-05-03] MEDS: FUROSEMIDE 20 MG TAB PO SCH (08:25)
[2018-05-03] MEDS: PANTOPRAZOLE 40 MG TABLET PO SCH (08:25)
[2018-05-03] MEDS: LITHIUM CARBONATE 300 MG CAP PO SCH (08:25)
[2018-05-03] MEDS: HALOPERIDOL 5 MG TAB PO SCH ×3 (08:25→20:42)
[2018-05-03] MEDS: RALOXIFENE 60 MG TAB PO SCH (08:25)
[2018-05-03] MEDS: ALPRAZolam 0.5 MG TAB PO PRN ×2 (08:39→20:44)
[2018-05-03] MEDS ORDERED: LORazepam 2 MG/ML INJ IM STA (10:48)
[2018-05-03] MEDS: OLANZapine 10 MG TAB PO SCH ×3 (11:32→20:42)
[2018-05-03] MEDS: ACETAMINOPHEN TAB 325 MG TAB PO PRN ×2 (17:43→21:41)
--- NOTE | 2018-05-03 19:47 | PN ---
PROGRESS NOTE DATE OF SERVICE: 05/03/2018. CHIEF COMPLAINT: The patient was admitted for manic symptoms with disorganized behavior including barricading herself in her apartment, breaking objects and screaming when no one was around. She was admitted on petition for involuntary hospitalization. INTERVAL HISTORY: Patient continues to be quite manic. She wanders about the unit. She has an intense manner. She continues to talk nonstop. She rambles and can be quite disorganized in her thoughts. On the other hand, she also seems to be appropriately oriented and can make factual statements that are accurate and relevant. She was continuing to show a lot of anxiety, restlessness and intense behavior last evening. It is noteworthy that Nursing documented this morning at 8:41 that she was at the desk, talking loudly and slamming her folder down repeatedly. She did not respond to redirection. She was given a p.r.n. of Xanax with limited response. She continues to be quite manic and intense. She only slept for 1 hour last night. It is noted that I had previously followed the patient when she had an admission to [facility] December 27 to February 12, 2018. At that time, she was admitted for manic symptoms with agitation and aggressive behavior. She was discharged on Seroquel XR 100 mg at bedtime. She has previously been on lithium, though has had renal issues. Her creatinine during that admission was 1.3. It is noted that her creatinine in on this admission is 1.17, which remains high. Also, her TSH is elevated at 34 from her [place] admission, she was discharged on Synthroid 125 mcg daily, though obviously has not been taking it for an extended period of time. She was just started on lithium yesterday and shows she has a low level today of less than 0.2. Today she has been very restless. She wanders about the unit. She has an intense manner. She will constantly approach people with one question or another, though most of the time, her thoughts are pretty disorganized. She appears to tolerate her psychotropic medications. MENTAL STATUS: Patient was restless. She had an intense manner. She talked incessantly. She could be interrupted for just short periods of time, but then would start rambling again. Much of her thoughts were disorganized, though at times she could be coherent in things she said. Her cognitive status appeared to be intact. Her affect was intense. Her mood euphoric. ASSESSMENT: I will continue the current diagnosis and treatment plan. There are concerns given her issues with the renal function that may limit the potential for lithium therapy. At this point, I will give the patient Ativan 2 mg IM. The aim is a test dose for possible catatonic excitement. I will also start the patient on Zyprexa 10 mg 3 times a day in addition to Haldol 10 mg 3 times a day. She will continue lithium carbonate 300 mg a day. She continues to be quite manic. We will focus on stabilization. MMODL / IJN: [id number] /
[2018-05-03] MEDS: ATORVASTATIN 10 MG TAB PO SCH (20:42)
[2018-05-04] MEDS: LEVOTHYROXINE 100 MCG TAB PO SCH (05:32)
[2018-05-04] MEDS: ACETAMINOPHEN TAB 325 MG TAB PO PRN (05:32)
[2018-05-04] MEDS: PANTOPRAZOLE 40 MG TABLET PO SCH (08:36)
[2018-05-04] MEDS: RALOXIFENE 60 MG TAB PO SCH (08:36)
[2018-05-04] MEDS: OLANZapine 10 MG TAB PO SCH ×3 (08:36→20:07)
[2018-05-04] MEDS: HALOPERIDOL 5 MG TAB PO SCH ×3 (08:36→20:07)
[2018-05-04] MEDS: FUROSEMIDE 20 MG TAB PO SCH (08:36)
[2018-05-04] MEDS: LITHIUM CARBONATE 300 MG CAP PO SCH (08:36)
[2018-05-04] MEDS ORDERED: LORazepam 2 MG/ML INJ IM STA (10:54)
[2018-05-04] MEDS ORDERED: LORazepam 1 MG TAB PO SCH (13:15)
[2018-05-04] MEDS ORDERED: LORazepam 1 MG TAB PO STA (14:34)
--- NOTE | 2018-05-04 15:37 | PN ---
PROGRESS NOTE DATE OF SERVICE: 05/04/2018. CHIEF COMPLAINT: The patient was admitted for manic symptoms with disorganized behavior including barricading herself in her apartment, breaking objects and screaming when no one was around. She was admitted on petition for involuntary hospitalization. INTERVAL HISTORY: The patient has continued to be quite manic and intense. She was given a 2 mg dose of Ativan IM yesterday at 1100 hours. The indication for the IM Ativan dose was a test dose for possible catatonic excitement. She slept for 4 hours after receiving the Ativan. After that, she was up and continued to be quite intense. She talks nonstop. She wanders about. She has purposeless activities. She is not able to be redirected and will constantly approach staff with various comments much of which is nonsensical. She slept 4 hours last night. Today she has been up. She has continued to be quite intense. She received a dose of Ativan 1 mg IM at 1100 hours today. After that, she was much calmer. Within 30 minutes of receiving the medication she came out in the day area. She pretty much kept to herself. She was not in her hyperverbal activity. She had a calmer manner. She seemed to gradually show some escalation within a few hours of receiving the medication. She can have episodes of being irritable. It is noteworthy that the patient was hospitalized at [facility] from December 27 to February 12, 2018. I was involved in her care to a limited extent. During that stay, she presented very much as she has currently. She had been tried on a number of psychotropic medications. She was on a combination of Zyprexa which was titrated up to 30 mg a day plus Haldol at an assertive dose without clear benefit. She did have a trial of Tegretol, though I do not have information on the results of that. She ultimately was placed on Seroquel, the doses was titrated up to the 4-500 mg range. In that dose range, her blood pressure was low. By the patient's indications, she has had long-term issues with the lower blood pressure. Ultimately, the Seroquel was reduced down to 100 mg a day which she tolerated well. She was in a fairly stable mood at the time of discharge. It is noteworthy that during that hospital stay, she had court adjudication for involuntary hospitalization. MENTAL STATUS: Patient for the most part was very hyperverbal. She was restless. She had an intense manner. She was difficult to redirect. She talked incessantly. Her affect was intense. Her mood generally was elevated though she also could easily become irritated and angry. She made delusional statements. ASSESSMENT: I will continue the current diagnosis. 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 She is hyperactive. She has delusions. She has shown at least moderate response to Ativan challenge. I will start the patient on Ativan 2 mg q.4 hours while awake with the times of administration being 0600, 1000, 1400, 1800 and 2200 hours. We will need to monitor essentially dose by dose to adjust her overall Ativan dose as appropriate. I will discontinue Zyprexa. There are some risks for development of a malignant catatonia that could relate to neuroleptic malignant syndrome. She would be at increased risk with high doses of 2 antipsychotics. In regards to vital signs, it is noteworthy that vital signs have been stable except for pulse is which generally has been running over 100 consistently throughout her admission. We will need to collect temperature along with other vital signs on a regular basis. She had been on Depakote in the past though had refused it when she was at [facility]. Whether or not she would benefit from either Depakote or Tegretol remains to be seen. We will continue to focus on stabilization and discharge planning. MMODL / IJN: [id number] /
[2018-05-04] MEDS: LORazepam 1 MG TAB PO SCH ×2 (18:17→20:07)
[2018-05-04] MEDS: ATORVASTATIN 10 MG TAB PO SCH (20:07)
[2018-05-05] MEDS: LORazepam 1 MG TAB PO SCH ×2 (05:38→05:39)
[2018-05-05] MEDS: LEVOTHYROXINE 100 MCG TAB PO SCH (05:45)
[2018-05-05] MEDS: ACETAMINOPHEN TAB 325 MG TAB PO PRN ×3 (05:46→20:11)
[2018-05-05] MEDS: RALOXIFENE 60 MG TAB PO SCH (08:21)
[2018-05-05] MEDS: OLANZapine 10 MG TAB PO SCH (08:21)
[2018-05-05] MEDS: PANTOPRAZOLE 40 MG TABLET PO SCH (08:21)
[2018-05-05] MEDS: FUROSEMIDE 20 MG TAB PO SCH (08:21)
[2018-05-05] MEDS: HALOPERIDOL 5 MG TAB PO SCH ×3 (08:21→20:11)
[2018-05-05] MEDS: LITHIUM CARBONATE 300 MG CAP PO SCH ×2 (09:03→20:11)
--- NOTE | 2018-05-05 12:33 | P.PN ---
Progress Note - Text Progress Note Date: 05/05/18 Patient was seen for a follow-up examination. The weekend psychiatrist had put the patient on Zyprexa 10 mg 3 times a day and Ativan 2 mg 4 times a day even though patient has hyperlipidemia and is on Lipitor. I am unable to justify the use of these 2 medications for this patient. So I discontinued those meds. Her lithium level is only 0.2 and so I have increased her lithium to 300 mg twice a day, check lithium level on the sixth of this month and adjust as necessary. Patient continues to be extremely talkative and disruptive hyperactive etc. This is a white ambulatory female who is wearing multiple layers of clothing. She is hyperactive, intrusive, talkative with pressured speech and flight of ideas. She is also grandiose and delusional. She has been taking her medications and has not been violent. The pedal edema has almost subsided. She appears to be well oriented with adequate memory. Plan: Discontinue Ativan 2 mg 4 times a day, Zyprexa 10 mg 3 times a day, increase lithium to 300 mg twice a day, check lithium level on sixth and discontinue Lasix since her pedal edema appears to be secondary to adverse effects from Neurontin which was discontinued last week. Continue groups and other therapies.
[2018-05-05] MEDS: ATORVASTATIN 10 MG TAB PO SCH (20:11)
[2018-05-06] MEDS: ACETAMINOPHEN TAB 325 MG TAB PO PRN ×2 (01:13→17:12)
[2018-05-06] MEDS: ZOLPIDEM 10 MG TAB PO PRN (03:50)
[2018-05-06] MEDS: LEVOTHYROXINE 100 MCG TAB PO SCH (05:32)
[2018-05-06] MEDS: HALOPERIDOL 5 MG TAB PO SCH ×3 (08:26→22:08)
[2018-05-06] MEDS: PANTOPRAZOLE 40 MG TABLET PO SCH (08:26)
[2018-05-06] MEDS: RALOXIFENE 60 MG TAB PO SCH (08:26)
[2018-05-06] MEDS: LITHIUM CARBONATE 300 MG CAP PO SCH ×2 (08:26→21:24)
--- NOTE | 2018-05-06 12:25 | P.PN ---
Progress Note - Text Progress Note Date: 05/06/18 Patient was seen for follow-up examination. She continues to be hyperactive and intrusive loud etc. she is taking her medications. She is unable to participate in the group for more than about 2 minutes. She walks around interferes with others' affairs, sings and sometimes talks to herself. I had stopped her Lasix yesterday since she did not have any pedal edema. But she has some today and her Lasix was restarted. This is a white ambulatory female with adequate hygiene. She is hyperactive, most around frequently and has difficulty in concentrating. Her speech is spontaneous pressured with flight of ideas. However her speech appears to be getting a little more focused. Her mood is elated/grandiose and affect is appropriate to the thought content. She denies suicide and homicide thoughts. She denies hallucinations. She is still quite grandiose. She is well oriented with adequate memory. Plan: Continue lithium 300 mg twice a day Haldol 10 mg 3 times a day, Lasix was restarted, increase lithium tomorrow if her lithium level is subtherapeutic.
[2018-05-06] MEDS: FUROSEMIDE 20 MG TAB PO SCH (12:28)
[2018-05-06] MEDS ORDERED: hydrOXYzine HCL 50 MG/ML 1 ML VIAL IM PRN (16:12)
[2018-05-06] MEDS: hydrOXYzine PAMOATE 25 MG CAP PO PRN (21:23)
[2018-05-06] MEDS: ATORVASTATIN 10 MG TAB PO SCH (21:23)
[2018-05-07] MEDS: ZOLPIDEM 10 MG TAB PO PRN ×2 (00:03→21:25)
[2018-05-07] MEDS: LEVOTHYROXINE 100 MCG TAB PO SCH (04:54)
[2018-05-07] MEDS: hydrOXYzine PAMOATE 25 MG CAP PO PRN ×2 (04:55→13:44)
[2018-05-07] MEDS: HALOPERIDOL 5 MG TAB PO SCH ×3 (09:44→19:59)
[2018-05-07] MEDS: RALOXIFENE 60 MG TAB PO SCH (09:44)
[2018-05-07] MEDS: FUROSEMIDE 20 MG TAB PO SCH (09:44)
[2018-05-07] MEDS: PANTOPRAZOLE 40 MG TABLET PO SCH (09:44)
[2018-05-07] MEDS: LITHIUM CARBONATE 300 MG CAP PO SCH (10:23)
--- NOTE | 2018-05-07 10:34 | P.PN ---
Progress Note - Text Progress Note Date: 05/07/18 Patient was seen for routine follow-up examination. She did not have her blood drawn this morning to check her lithium level for reasons that are not clear. She continues to be intrusive, talkative, tries to hug people, becomes demanding , Knocks on the door several times a day etc. She does not seem to have any adverse effects from lithium. Her pedal edema has decreased since she was started back on Lasix yesterday. This is a white ambulatory female with adequate hygiene. She is talkative with pressured speech and flight of ideas. With some difficulty she is able to leave the office when she is asked. Her mood is elated and affect is appropriate to the thought content. She denies suicidal and homicidal thoughts. She denies hallucinations. She continues to be grandiose with some paranoid thinking. She is oriented with adequate memory concentration general knowledge etc. Plan: Increase lithium to 450 mg twice a day, check lithium level and TSH on 07/2018, continue Haldol, therapy and other activities.
[2018-05-07] MEDS: LITHIUM CARBONATE ER 450 MG TABLET.ER PO SCH ×2 (10:55→19:59)
[2018-05-07] MEDS: IBUPROFEN 400 MG TAB PO PRN ×2 (10:56→20:57)
--- NOTE | 2018-05-07 17:52 | PN ---
PROGRESS NOTE The patient was apparently complaining of some pain in her feet with swelling. She has no fever. PHYSICAL EXAMINATION: She has dry skin in both lower legs, but no significant edema. There is minimal edema in her feet. She does have onychomycosis and foot hygiene is poor. There are no open areas, infection, etc. IMPRESSION: 1. Onychomycosis. 2. Mild dyshidrosis of both feet. 3. Mild edema. RECOMMENDATIONS: None at this time. MMODL / IJN: [id number] /
[2018-05-07] MEDS: ATORVASTATIN 10 MG TAB PO SCH (19:59)
[2018-05-08] MEDS: IBUPROFEN 400 MG TAB PO PRN ×2 (05:56→15:47)
[2018-05-08] MEDS: LEVOTHYROXINE 100 MCG TAB PO SCH (05:57)
[2018-05-08] MEDS: hydrOXYzine PAMOATE 25 MG CAP PO PRN ×2 (08:05→15:46)
[2018-05-08] MEDS: FUROSEMIDE 20 MG TAB PO SCH (08:06)
[2018-05-08] MEDS: HALOPERIDOL 5 MG TAB PO SCH ×3 (08:06→21:31)
[2018-05-08] MEDS: LITHIUM CARBONATE ER 450 MG TABLET.ER PO SCH ×2 (08:06→21:31)
[2018-05-08] MEDS: PANTOPRAZOLE 40 MG TABLET PO SCH (08:07)
[2018-05-08] MEDS: RALOXIFENE 60 MG TAB PO SCH (08:07)
--- NOTE | 2018-05-08 09:10 | P.PN ---
Progress Note - Text Progress Note Date: 05/08/18 Patient was seen for a routine follow-up examination. Patient continues to be intrusive, talkative and interferes in other side effects. She usually does not follow directions and does what she wants. Her lithium level was done late yesterday and it is 0.5 mEq per liter. Her lithium was increased to 450 mg twice a day yesterday. She has been taking her medications. Her pedal edema has disappeared. Her court hearing which was scheduled for yesterday at 1:30 PM was postponed by the rolling mill operator helper for technical reasons. This is a white ambulatory female with adequate hygiene. She is hyperactive intrusive and is hard to redirect. Her speech is spontaneous pressured with flight of ideas. Her mood is elated and is grandiose. He she denies hallucinations. She also denies suicide and homicide thoughts. She is oriented with adequate memory, general knowledge etc. Plan: Continue lithium 450 mg twice a day, Haldol 10 mg 3 times a day, groups and other therapies.
[2018-05-08] MEDS ORDERED: LORazepam 1 MG TAB PO STA (16:13)
[2018-05-08] MEDS ORDERED: HALOPERIDOL 5 MG TAB ONE (19:50)
[2018-05-08] MEDS: ATORVASTATIN 10 MG TAB PO SCH (21:30)
[2018-05-08] MEDS: CLOTRIMAZOLE 1% CREAM 15 GM TUBE TOPICAL SCH (21:31)
[2018-05-09] MEDS: ZOLPIDEM 10 MG TAB PO PRN ×2 (00:56→22:02)
[2018-05-09] MEDS: IBUPROFEN 400 MG TAB PO PRN ×2 (01:13→15:30)
[2018-05-09] MEDS: LEVOTHYROXINE 100 MCG TAB PO SCH (06:03)
[2018-05-09] MEDS: FUROSEMIDE 20 MG TAB PO SCH (08:20)
[2018-05-09] MEDS: RALOXIFENE 60 MG TAB PO SCH (08:21)
[2018-05-09] MEDS: PANTOPRAZOLE 40 MG TABLET PO SCH (08:21)
[2018-05-09] MEDS: HALOPERIDOL 5 MG TAB PO SCH ×3 (08:21→21:20)
[2018-05-09] MEDS: CLOTRIMAZOLE 1% CREAM 15 GM TUBE TOPICAL SCH ×2 (10:03→20:43)
[2018-05-09] MEDS: LITHIUM CARBONATE ER 450 MG TABLET.ER PO SCH ×2 (10:05→20:42)
--- NOTE | 2018-05-09 11:40 | P.PN ---
Progress Note - Text Progress Note Date: 05/09/18 Patient was seen for follow-up examination. Patient has been loud and intrusive and continues to interfere with others fair. She had refused her lithium level and TSH this morning. The nurse had helped her morning lithium until after lab test. Since she had refused his lab test lab chest was rescheduled for tomorrow and initially patient refused to take lithium but eventually she took it. Patient needs lots of redirections and encouragements to take her medications leave other patients alone without bothering them etc. This is a white ambulatory female with adequate hygiene. She is hyperactive and intrusive and gets quite demanding. Her speech is spontaneous, pressured with flight of ideas. She is grandiose and somewhat paranoid. She continues to deny suicide and homicide thoughts. She is oriented with adequate memory general knowledge etc. Her insight and judgment are still quite impaired. Plan: Continue Haldol 10 mg 3 times a day, lithium 450 mg twice a day, groups and other therapies, lithium level with TSH and T4 tomorrow morning.
[2018-05-09] MEDS: hydrOXYzine PAMOATE 25 MG CAP PO PRN ×2 (18:45→18:53)
[2018-05-09] MEDS: ATORVASTATIN 10 MG TAB PO SCH (20:42)
[2018-05-10] MEDS: LEVOTHYROXINE 100 MCG TAB PO SCH (06:25)
[2018-05-10] MEDS: RALOXIFENE 60 MG TAB PO SCH (08:34)
[2018-05-10] MEDS: PANTOPRAZOLE 40 MG TABLET PO SCH (08:34)
[2018-05-10] MEDS: LITHIUM CARBONATE ER 450 MG TABLET.ER PO SCH ×2 (08:34→20:44)
[2018-05-10] MEDS: FUROSEMIDE 20 MG TAB PO SCH (08:34)
[2018-05-10] MEDS: HALOPERIDOL 5 MG TAB PO SCH ×3 (08:34→20:44)
[2018-05-10] MEDS: CLOTRIMAZOLE 1% CREAM 15 GM TUBE TOPICAL SCH ×2 (08:48→20:44)
[2018-05-10 11:19] LABS: Lithium 0.9 mmol/L
--- NOTE | 2018-05-10 18:39 | P.PN ---
Progress Note - Text Progress Note Date: 05/10/18 Interval history: Patient is seen in cross coverage today. She is found in her room lying in bed. She refuses to come meeting with me for the interview. Mental status exam: Patient is found in her room lying in bed. She refuses to meet with me for the interview today. She does not show any agitation. Plan: We'll continue to cover this patient through the weekend. We'll attempt again to meet with the patient tomorrow for interview.
[2018-05-10] MEDS: ATORVASTATIN 10 MG TAB PO SCH (20:44)
[2018-05-11] MEDS: LEVOTHYROXINE 100 MCG TAB PO SCH (05:37)
[2018-05-11] MEDS: RALOXIFENE 60 MG TAB PO SCH (08:53)
[2018-05-11] MEDS: FUROSEMIDE 20 MG TAB PO SCH (08:53)
[2018-05-11] MEDS: PANTOPRAZOLE 40 MG TABLET PO SCH (08:54)
[2018-05-11] MEDS: LITHIUM CARBONATE ER 450 MG TABLET.ER PO SCH ×2 (08:54→22:47)
[2018-05-11] MEDS: HALOPERIDOL 5 MG TAB PO SCH ×4 (08:54→22:48)
[2018-05-11] MEDS: CLOTRIMAZOLE 1% CREAM 15 GM TUBE TOPICAL SCH ×2 (08:55→22:45)
--- NOTE | 2018-05-11 12:57 | P.PN ---
Progress Note - Text Progress Note Date: 05/11/18 Interval history: Patient seen in cross coverage today. She is found in her room lying in bed. She again refuses to meeting with me today. She does state that she is taking her medications. She makes reference to another woman and says that she will answer for her. Nursing staff is verbalizes some concerns about patient's status, concern with her being sedated. Her son visited and left a correspondence regarding his concerns about the patient being too sedated. Mental status exam: She is found in her room lying in bed. She does appear sedated. Her speech has a slurred quality to it. She refuses to meet with me. She makes reference to another person answering for her. Plan: We'll decrease the dose of Haldol to 5 mg 3 times a day, hold for sedation. We will recheck some lab studies. Continue to monitor for side effects and monitor her mental status.
[2018-05-11 13:15] LABS: Albumin 4.1 g/dL (3.5-5.0); Calcium 10.5 mg/dL (8.4-10.2); Total Bilirubin 0.6 mg/dL (0.2-1.3); Total Protein 6.6 g/dL (6.3-8.2)
[2018-05-11] MEDS: ATORVASTATIN 10 MG TAB PO SCH (22:47)
[2018-05-12] MEDS: LITHIUM CARBONATE ER 450 MG TABLET.ER PO SCH ×3 (12:42→21:38)
[2018-05-12] MEDS: PANTOPRAZOLE 40 MG TABLET PO SCH ×2 (12:42→14:54)
[2018-05-12] MEDS: FUROSEMIDE 20 MG TAB PO SCH ×2 (12:42→14:54)
[2018-05-12] MEDS: CLOTRIMAZOLE 1% CREAM 15 GM TUBE TOPICAL SCH ×3 (12:42→21:36)
[2018-05-12] MEDS: RALOXIFENE 60 MG TAB PO SCH ×2 (12:43→14:54)
--- NOTE | 2018-05-12 12:43 | P.PN ---
Progress Note - Text Progress Note Date: 05/12/18 Patient's Haldol was decreased from 10 mg 3 times a day to 5 mg 3 times a day yesterday. Patient has not been too intrusive and usually stays by herself or gets hyperactive. Today she never came knocking on my door. Her lithium level on the ninth was 0.9 mEq per liter and TSH was 0.491. BUN and creatinine levels are still borderline high. This is a white ambulatory female post-hair is uncombed, covers her eyes etc. She continues to ramble, has mild tremors etc. She left the office when we finished talking without any problem. She did not talk anything to suggest grandiose thinking today. She continues to deny suicide and homicide thoughts. She is oriented with adequate memory. Plan: Continue lithium 450 mg twice a day, decrease Haldol to 5 mg twice a day, continue groups and other therapies.
[2018-05-12] MEDS: HALOPERIDOL 5 MG TAB PO SCH ×3 (12:44→20:35)
[2018-05-12] MEDS: LEVOTHYROXINE 100 MCG TAB PO SCH (12:45)
[2018-05-12] MEDS: ATORVASTATIN 10 MG TAB PO SCH (21:38)
[2018-05-13] MEDS: RALOXIFENE 60 MG TAB PO SCH (08:09)
[2018-05-13] MEDS: FUROSEMIDE 20 MG TAB PO SCH (08:09)
[2018-05-13] MEDS: HALOPERIDOL 5 MG TAB PO SCH ×2 (08:09→20:35)
[2018-05-13] MEDS: LEVOTHYROXINE 100 MCG TAB PO SCH (08:09)
[2018-05-13] MEDS: PANTOPRAZOLE 40 MG TABLET PO SCH (08:09)
[2018-05-13] MEDS: LITHIUM CARBONATE ER 450 MG TABLET.ER PO SCH ×2 (08:09→20:35)
[2018-05-13] MEDS: CLOTRIMAZOLE 1% CREAM 15 GM TUBE TOPICAL SCH ×2 (08:10→19:12)
--- NOTE | 2018-05-13 10:28 | P.PN ---
Progress Note - Text Progress Note Date: 05/13/18 Patient was seen for a follow-up examination. She says she is sleepy and is in bed. When she went for breakfast this morning after taking her morning medication, she was hyperactive and talkative. But she has not been intrusive, knocking on my door often etc. She is taking her medications as prescribed. This is a white ambulatory female whose hair is not well combed. Otherwise she seems to have adequate hygiene. She gets hyperactive. Her speech is spontaneous, pressured with some flight of ideas. Her mood is cheerful to elated. Affect is appropriate to the thought content. She denies suicide homicide thoughts and hallucinations. Continues to be grandiose. She is fairly well oriented with adequate memory general knowledge etc. Plan: Continue Haldol 5 mg twice a day, lithium 450 mg twice a day, groups and other therapies.
[2018-05-13] MEDS: ATORVASTATIN 10 MG TAB PO SCH (20:35)
[2018-05-14] MEDS: LEVOTHYROXINE 100 MCG TAB PO SCH (05:49)
[2018-05-14] MEDS: RALOXIFENE 60 MG TAB PO SCH (08:25)
[2018-05-14] MEDS: LITHIUM CARBONATE ER 450 MG TABLET.ER PO SCH ×2 (08:25→11:57)
[2018-05-14] MEDS: FUROSEMIDE 20 MG TAB PO SCH ×2 (08:25→11:57)
[2018-05-14] MEDS: CLOTRIMAZOLE 1% CREAM 15 GM TUBE TOPICAL SCH ×2 (08:25→20:05)
[2018-05-14] MEDS: PANTOPRAZOLE 40 MG TABLET PO SCH (08:25)
--- NOTE | 2018-05-14 09:17 | P.PN ---
Progress Note - Text Progress Note Date: 05/14/18 Patient was seen earlier in the morning. She was lying down in her bed. She said she did not want to go for breakfast and said her doctor Dr. Peng will be prescribing her medications lab tests etc. she continues to have pressured speech and has been staying in bed or sleeping quite a bit. I have ordered her lithium level, T3-T4 etc. and had canceled her Haldol this morning. This is a white ambulatory female who has been staying in bed quite a bit. Her hair is poorly combed. Otherwise she has adequate hygiene. She has not been knocking on the door or intrusive. She continues to deny suicide and homicide thoughts. She denies hallucinations. But she appears to be grandiose and delusional. Her cognitive functions appear to be adequate. Plan: Continue lithium, check lithium level, T3, TSH, groups and other therapies. Consider adjusting/changing medications after the lab report.
[2018-05-14 12:27] LABS: Lithium 1.3 mmol/L
--- NOTE | 2018-05-14 13:23 | P.EN ---
Lab report shows Licking level of 1.3 and TSH 0.086. T4 is pending. Plan: Licking is reduced from 450 mg twice a day to 300 mg twice a day. Haldol was discontinued in the morning and I'll start her on Abilify 5 mg at bedtime for mood stabilization.
[2018-05-14 14:07] LABS: T4, Free (Free Thyroxine) 3.56 ng/dL (0.78-2.19)
[2018-05-14] MEDS: ATORVASTATIN 10 MG TAB PO SCH (20:05)
[2018-05-14] MEDS: LITHIUM CARBONATE 300 MG CAP PO SCH (20:05)
[2018-05-14] MEDS ORDERED: ARIPiprazole 5 MG TAB PO SCH (21:00)
[2018-05-15] MEDS: FUROSEMIDE 20 MG TAB PO SCH (07:32)
--- NOTE | 2018-05-15 08:32 | P.PN ---
Progress Note - Text Progress Note Date: 05/15/18 Patient was seen for a routine follow-up examination. She is seen in bed. She did not want to speak much. But, She answered questions appropriately. Her Lasix was held this morning since her blood pressure was low. Her Haldol was discontinued and was started on 5 mg Abilify at at bedtime yesterday. In view of her falling blood pressure her Abilify was discontinued. Patient's Dr. Dr. Peng is requested to come and evaluate the patient for medical management. Plan: Continue lithium 300 mg twice a day and other medications for physical problems except for Synthroid and Lasix until seen by Dr. Peng. Continue groups and other therapies.
[2018-05-15] MEDS: LITHIUM CARBONATE 300 MG CAP PO SCH ×2 (09:20→21:34)
[2018-05-15] MEDS: RALOXIFENE 60 MG TAB PO SCH (09:20)
[2018-05-15] MEDS: CLOTRIMAZOLE 1% CREAM 15 GM TUBE TOPICAL SCH ×2 (09:20→21:34)
[2018-05-15] MEDS: PANTOPRAZOLE 40 MG TABLET PO SCH (09:20)
[2018-05-15] MEDS: ATORVASTATIN 10 MG TAB PO SCH (21:34)
[2018-05-16] MEDS: PANTOPRAZOLE 40 MG TABLET PO SCH (08:15)
[2018-05-16] MEDS: CLOTRIMAZOLE 1% CREAM 15 GM TUBE TOPICAL SCH ×2 (08:16→20:28)
[2018-05-16] MEDS: RALOXIFENE 60 MG TAB PO SCH (08:16)
[2018-05-16] MEDS: LITHIUM CARBONATE 300 MG CAP PO SCH ×2 (08:16→20:28)
--- NOTE | 2018-05-16 09:12 | P.CN ---
Psychiatric Consult - . Consult date: 05/16/18 Consult:: 05/16/18 09:07 Patient was seen for follow-up examination. Patient usually stays in her room and lays down. But she does go to the medication window for medications. She goes to the dining room sometimes and eats. She has not been attending groups recently. Her blood pressure is still low and Dr. Peng was informed about it and he had ordered some tests and is following her physical issues closely. This is a white ambulatory female with inadequate hygiene. She does not comb her hair. She does not show psychomotor agitation or retardation. Her speech is spontaneous and is goal-directed now. She make sense when she is talking without pressure speech or flight of ideas. Her mood is euthymic to dull and affect is appropriate to the thought content. She continues to deny suicide and homicide thoughts. She also denies hallucinations. She is not making grandiose statements anymore. She is oriented with adequate memory general knowledge etc. Plan: Continue lithium 300 mg twice a day, groups and other therapies. Dr. Peng is managing her physical problems including thyroid, hypertension etc. patient has elevated liver enzymes and not optimal renal functions, hyperlipidemia etc. and since today is my last day of work here, whoever is going to take care of this psychiatric patient's affective later today would need to consider these problems prior to ordering certain kind of psychiatric medications.
[2018-05-16 16:56] LABS: Basophils % (A) 1 %; Eosinophils # (A) 0.1 k/uL (0-0.7); Eosinophils % (A) 2 %; HCT 39.8 % (34.0-46.0); HGB 12.9 gm/dL (11.4-16.0); Lymphocytes % (A) 35 %; MCH 29.7 pg (25.0-35.0); MCHC 32.4 g/dL (31.0-37.0); MCV 91.7 fL (80.0-100.0); Mean Platelet Volume 6.7; Monocytes # (A) 0.4 k/uL (0-1.0); Monocytes % (A) 7 %; Neutrophils % (A) 53 %; Platelet Count 398 k/uL (150-450); RBC 4.35 m/uL (3.80-5.40); RDW 14.8 % (11.5-15.5); WBC 5.7 k/uL (3.8-10.6)
[2018-05-16 17:05] LABS: Albumin 3.2 g/dL (3.5-5.0); Calcium 9.8 mg/dL (8.4-10.2); Potassium 3.9 mmol/L (3.5-5.1); Total Bilirubin 0.2 mg/dL (0.2-1.3); Total Protein 5.6 g/dL (6.3-8.2)
[2018-05-16] MEDS ORDERED: RX INFO: IV CONTRAST WAS GIVEN 1 EACH MISC MISCELLANE PRN (17:12)
[2018-05-16 17:28] LABS: Lithium 1.1 mmol/L
[2018-05-16] MEDS: IOPAMIDOL-300 CONTRAST 30 ML VIAL (ORAL USE) PO PRN ×2 (17:42→18:36)
--- NOTE | 2018-05-16 18:19 | CONS ---
CONSULTATION CHIEF COMPLAINT: Lethargy and low blood pressure. HISTORY OF PRESENT ILLNESS: Psychiatry asked me to see this patient, who has been less active and spending more time in bed in the last day or so. She was extremely manic prior to this. Vital signs have been normal except her blood pressure has slightly low on occasion, but this is usual for her, also. She has had no fever. When she is awake, she is alert and oriented and is only complaining of being disturbed when she is trying to rest. She denies any headaches, change in vision or hearing, shortness of breath, cough. No chest pain, abdominal pain, nausea, vomiting, diarrhea, urinary complaints, etc. She is complaining of back ache, but this is usual for her. Her exam is otherwise completely unremarkable. Laboratory studies been ordered, but I really feel that this is rebound for her manic state over the last 2 weeks. She is on no medications to cause any of this difficulty. She will be watched over the next day or 2 to see if any other abnormalities develop in her vital signs or laboratory studies, at which time they will be addressed. MMODL / IJN: [id number] /
--- NOTE | 2018-05-16 19:51 | XR ---
EXAMINATION TYPE: XR chest 2V DATE OF EXAM: 05/16/2018 COMPARISON: 04/21/2018 HISTORY: Back pain TECHNIQUE: Frontal and lateral views of the chest are obtained. FINDINGS: Heart and mediastinum are normal. Lungs are clear. Diaphragm is normal. Bony thorax is int act. There are calcified granulomata in the mediastinum. IMPRESSION: No active cardiopulmonary disease. Normal heart. No change.
--- NOTE | 2018-05-16 20:04 | CT ---
EXAMINATION TYPE: CT brain wo con DATE OF EXAM: 05/16/2018 COMPARISON: 04/23/2018 HISTORY: Altered mental status. CT DLP: 813.6 mGycm Automated exposure control for dose reduction was used. FINDINGS: There is mild cerebral cortical atrophy. There is no mass effect nor midline shift. There is no sign of intracranial hemorrhage. The calvarium is intact. There is some debris in the external auditory ca nals. IMPRESSION: MILD ATROPHY. NO ACUTE INTRACRANIAL ABNORMALITY. NO CHANGE.
--- NOTE | 2018-05-16 20:09 | CT ---
EXAMINATION TYPE: CT abdomen pelvis wo con DATE OF EXAM: 05/16/2018 COMPARISON: NONE HISTORY: Back pain and history of renal failure. CT DLP: 233.9 mGycm Automated exposure control for dose reduction was used. TECHNIQUE: Helical acquisition of images was performed from the lung bases through the pelvis. FINDINGS: Lung bases are clear. There is no pleural effusion. Heart size is normal. Liver spleen pancreas gallbladder appear normal. There is no adrenal mass. Kidneys have normal size. There is no hydronephrosis. Ureters are not dilated. There is no evidence of retroperitoneal adenopat hy. There is no ascites. Bladder distends smoothly. I see no intestinal wall thickening. There are no dilated loops. Oral contrast in the small bowel appears normal. Appendix appears normal. I see no ela ny destructive process. Disc spaces are fairly normal. Uterus is retroverted. There is probably a 1 m m calcification in the lower pole left kidney. IMPRESSION: NONOBSTRUCTING SMALL LEFT RENAL CALCULUS. NO EVIDENCE OF AN ACUTE ABDOMEN AND PELVIS. NORMAL APPENDIX .
[2018-05-17] MEDS ORDERED: LEVOTHYROXINE 75 MCG TAB PO SCH (06:30)
[2018-05-17] MEDS: CLOTRIMAZOLE 1% CREAM 15 GM TUBE TOPICAL SCH ×2 (09:05→21:04)
[2018-05-17] MEDS: PANTOPRAZOLE 40 MG TABLET PO SCH (09:05)
[2018-05-17] MEDS: RALOXIFENE 60 MG TAB PO SCH (09:05)
[2018-05-17] MEDS: LITHIUM CARBONATE 300 MG CAP PO SCH ×2 (09:05→21:04)
--- NOTE | 2018-05-17 11:02 | P.PN ---
Progress Note - Text Interval history: The patient's is found in her room she is resting in bed. She does not wish to speak with me in an interview room. She indicates that she feels tired. She is being treated with lithium and appears in the recent past the level went up to 1.3. Her creatinine had increased. There is some noted abnormality with her thyroid labs. She has been seen by her primary care physician Dr. Peng. Mental status exam: The patient is alert she is lying in bed she makes brief eye contact. She indicates she is tired. She is dressed in her own clothing. She initiates little spontaneous speech she answers questions briefly. She appears to be in no acute distress. She had been demonstrating manic behavior for several days prior to this. She reports having no symptoms when asked. Insight and judgment limited. She demonstrates no abnormal involuntary movements. She demonstrates no verbal or physical aggressiveness. At this time she does not appear to be manic during our brief interaction. Plan: We will continue the patient's medication is written. We will draw another lithium level BUN and creatinine. We will monitor her for safety and monitor her by mouth intake. Vital signs reviewed.
--- NOTE | 2018-05-17 17:14 | PN ---
PROGRESS NOTE CHIEF COMPLAINT: Lethargy. HISTORY OF PRESENT ILLNESS: This lady is sleeping quietly in her bed, but easily aroused and oriented and normal. Chest is clear. Cardiac exam is normal. Abdomen is soft, nontender. Extremities are unchanged. Nutrition is marginal. IMPRESSION: Lethargy, probably secondary to moving into a depressive phase after manic presentation over the last 2 or 3 weeks. All of her studies been unremarkable so far. She will be reassessed daily. MMODL / IJN: [id number] /
[2018-05-18] MEDS: RALOXIFENE 60 MG TAB PO SCH (08:57)
[2018-05-18] MEDS: LITHIUM CARBONATE 300 MG CAP PO SCH ×2 (08:57→20:38)
[2018-05-18] MEDS: CLOTRIMAZOLE 1% CREAM 15 GM TUBE TOPICAL SCH ×2 (08:57→20:39)
[2018-05-18] MEDS: PANTOPRAZOLE 40 MG TABLET PO SCH (08:57)
[2018-05-18 09:27] LABS: Lithium 0.9 mmol/L
--- NOTE | 2018-05-18 13:02 | P.PN ---
Progress Note - Text Interval history: The patient is found in her room again she declines participating in the session in an interview room. She is willing to speak with me in her room however. She did not eat the food portion of her breakfast but did drink and or just use and drank the container of ensure. She describes feeling tired. She has been isolating in her room. She has been seen by Dr. Lutz and twice over the weekend his notes were reviewed. I did repeat her BUN/ creatinine creatinine as well as lithium level. The lithium level has reduced to 0.9 BUN remained elevated at 26 creatinine reduced slightly to 1.20 from 1.25. Mental status exam: The patient is alert but tired-appearing she is lying in bed eye contact is intermittent. She is cooperative. She reports no mood symptoms. She provides no rationale for isolating in her room, other than stating she feels comfortable there. She is reporting no auditory or visual hallucinations she is reporting no suicidal or homicidal ideation. She demonstrates no verbal or physical aggressiveness. Speech was fluent and nonpressured. Insight and judgment limited. Plan: The patient will continue on the lithium. We will need to consider switching that medication if her creatinine remains elevated. It is possible that the lithium is causing her psychomotor slowing. She has been manic for extended period of time so it is also possible this is a rebound phenomenon following the manic symptoms. We will monitor for safety. Vital signs reviewed.
--- NOTE | 2018-05-18 20:42 | PN ---
PROGRESS NOTE CHIEF COMPLAINT: Drowsiness. HISTORY OF PRESENT ILLNESS: This lady is stable and doing well. She continues to sleep a lot, but she is eating and was in no other clinical or laboratory findings or abnormal physical findings. PHYSICAL EXAMINATION: Cardiac exam is normal. IMPRESSION: schizophrenia with manic depressive illness, currently in depressive phase. No change in program. MMODL / IJN: [id number] /
[2018-05-19] MEDS: CLOTRIMAZOLE 1% CREAM 15 GM TUBE TOPICAL SCH ×2 (09:42→20:20)
[2018-05-19] MEDS: PANTOPRAZOLE 40 MG TABLET PO SCH (09:42)
[2018-05-19] MEDS: RALOXIFENE 60 MG TAB PO SCH (09:42)
[2018-05-19] MEDS: LITHIUM CARBONATE 300 MG CAP PO SCH ×2 (09:42→20:20)
--- NOTE | 2018-05-19 14:37 | EEG ---
ELECTROENCEPHALOGRAM REPORT DATE OF SERVICE: 05/17/2018. REASON FOR TESTING: Altered mental status. DESCRIPTION OF THE PROCEDURE: This EEG was performed using a 21 channel digital electroencephalograph, following international 10-20 system. DESCRIPTION OF THE RECORDING: From the beginning of the tracing, and with patient's eyes closed, the background rhythm was mostly consisting of 8 Hz alpha frequency in the posterior occipital leads. No obvious asymmetry is seen. Photic stimulation was performed with a minimal driving response seen. No pathological waves were elicited. Hyperventilation was not performed. Occasional sharp wave activity is seen. No generalized epileptiform discharges were noticed. The patient remains awake throughout the tracing. The EKG lead showed a regular rate and rhythm. INTERPRETATION: This awake EEG is abnormal due to the presence of occasional sharp wave activity. This is consistent with a reduced seizure threshold. No obvious generalized epileptiform discharges were seen. Clinical correlation is recommended. ROXANNE / TAYLOR: [id number] /
--- NOTE | 2018-05-19 15:19 | P.PN ---
Subjective Progress Note Date: 05/19/18 Principal diagnosis: Bipolar 1 disorder most recent episode manic with psychotic features I reviewed the medical record, interviewed the patient and discussed her treatment and treatment plan during team meeting. She is a 68-year-old female who has a well-established diagnosis of a bipolar disorder. She presented to the psychiatric unit on 04/27/2018 with signs and symptoms of acute hermann. Her symptoms did not respond to Haldol or Zyprexa. Dr. Beck prescribed lithium due to the severity of her manic symptoms. Her lithium level from 05/18/2018 was 0.9 and her BUN and creatinine were 26 and 1.2 respectively. The patient complained of feeling tired but denied other concerns. She questioned whether lithium was "the right medication" because the feelings of tiredness. I explained that She is much less agitated, intrusive, restless and confused since beginning lithium. Objective - Vital Signs Vital signs: Vital Signs Temp 97.9 F 05/19/18 06:23 Pulse 57 L 05/19/18 06:23 Resp 12 05/19/18 06:23 BP 98/61 05/19/18 06:23 Pulse Ox 98 05/18/18 14:00 Intake & Output 05/18/18 05/19/18 05/19/18 18:59 06:59 18:59 Intake Total 1440 Balance 1440 Weight 49.13 kg Intake: Oral 1440 - Psychiatric Psychiatric Comment(s): She presented as a frail somewhat disheveled appearing elderly female who is laying comfortably in bed. She appeared sedated. She had a blunted facial expression. She showed psychomotor retardation but no abnormal movements. Her speech was spontaneous with decreased rhythm, rate and volume. Her affect was blunted but stable and appropriate. She denied suicidal ideation , wishes or homicidal ideation. She denied such depressive cognitions as hopelessness, helplessness and worthlessness. She did not express ideas reference, paranoid ideation or delusions. Her thinking was concrete but her associations were coherent and logical. She denied hallucinations and did not appear to responding to internal stimuli. - Labs CBC & Chem 7: 05/16/18 16:33 05/18/18 09:05 - Imaging and Cardiology Chest x-ray: report reviewed (No active cardiopulmonary disease. Normal heart.) CT scan - abdomen: report reviewed (Nonobstructing small left renal Calculus. No evidence of acute abdomen and pelvis.) CT Scan - head: report reviewed (Mild atrophy, no acute intracranial abnormality ) Assessment and Plan Assessment: Overall, she appears moderately mentally ill and much improved from admission. (1) Bipolar I disorder, most recent episode manic Current Visit: Yes Status: Acute Priority: High Code(s): F31.10 - BIPOLAR DISORD, CRNT EPISODE MANIC W/O PSYCH FEATURES, UNSP SNOMED Code(s): 91484523 (2) Chronic renal failure Current Visit: Yes Status: Chronic Priority: Medium Code(s): N18.9 - CHRONIC KIDNEY DISEASE, UNSPECIFIED SNOMED Code(s): 02172486 Plan: Continue inpatient psychiatric hospitalization due to severity of psychiatric illness. Continue lithium carbonate 300 mg by mouth twice a day and monitor lithium level, BUN/creatinine. Continue to monitor safety. Encourage participation in therapeutic groups and activities. Evaluate clinical status response to treatment on a daily basis.
--- NOTE | 2018-05-19 18:16 | PN ---
PROGRESS NOTE CHIEF COMPLAINT: Lethargy. HISTORY OF PRESENT ILLNESS: This lady is stable. There has been no interval change. Medically, she does not appear to have any issues. PHYSICAL EXAM: She remains asthenic. Color is adequate. Chest is clear. Cardiac exam is normal and the abdomen is soft. IMPRESSION: 1. Malaise. 2. Schizophrenia. PLAN: She seems to be doing fairly well and I will see her on a p.r.n. basis. ROXANNE / GORDONN: [id number] /
[2018-05-20] MEDS: PANTOPRAZOLE 40 MG TABLET PO SCH (10:13)
[2018-05-20] MEDS: RALOXIFENE 60 MG TAB PO SCH (10:13)
[2018-05-20] MEDS: CLOTRIMAZOLE 1% CREAM 15 GM TUBE TOPICAL SCH ×2 (10:13→21:09)
[2018-05-20] MEDS: LITHIUM CARBONATE 300 MG CAP PO SCH (10:13)
[2018-05-20 10:56] LABS: Calcium 10.1 mg/dL (8.4-10.2); Lithium 0.9 mmol/L; Potassium 4.3 mmol/L (3.5-5.1)
--- NOTE | 2018-05-20 14:59 | P.PN ---
Subjective Progress Note Date: 05/20/18 Principal diagnosis: Bipolar 1 disorder most recent episode manic with psychotic features I reviewed the medical record, interviewed the patient and discussed her treatment and treatment plan during team meeting. The patient complained of feeling tired but denied other concerns. She alleged that she is not eating because she is not hungry. According to nursing record she seldom eats her full meals. She spends most of the day in bed does not attend therapeutic groups and activities. She slept 6 hours last night. Nursing is monitoring her fluid intake closely and she had 3 empty 20 ounce water cups next to her bed. Objective - Vital Signs Vital signs: Vital Signs Temp 97.6 F 05/20/18 06:56 Pulse 56 L 05/20/18 06:56 Resp 20 05/20/18 06:56 BP 100/61 05/20/18 06:56 Pulse Ox 99 05/20/18 06:56 - Psychiatric Psychiatric Comment(s): She presented as a frail and disheveled appearing elderly female who is laying comfortably in bed. She appeared sedated. She had a blunted facial expression. She showed psychomotor retardation but no abnormal movements. Her speech was spontaneous with decreased rhythm, rate and volume. Her affect was blunted but stable and appropriate. She denied suicidal ideation, wishes or homicidal ideation. She denied such depressive cognitions as hopelessness, helplessness and worthlessness. She did not express ideas reference, paranoid ideation or delusions. Her thinking was concrete but her associations were coherent and logical. She denied hallucinations and did not appear to responding to internal stimuli. - Labs CBC & Chem 7: 05/16/18 16:33 05/20/18 10:11 Labs: Wade level 0.9 Assessment and Plan Assessment: Overall, she appears moderately mentally ill and much improved from admission. (1) Bipolar I disorder, most recent episode manic Current Visit: Yes Status: Acute Priority: High Code(s): F31.10 - BIPOLAR DISORD, CRNT EPISODE MANIC W/O PSYCH FEATURES, UNSP SNOMED Code(s): 80931439 (2) Chronic renal failure Current Visit: Yes Status: Chronic Priority: Medium Code(s): N18.9 - CHRONIC KIDNEY DISEASE, UNSPECIFIED SNOMED Code(s): 87346069 Plan: Continue inpatient psychiatric hospitalization due to severity of psychiatric illness. Decrease lithium to 450 mg at bedtime and continue to monitor lithium level, BUN/creatinine. Continue to monitor safety. Encourage participation in therapeutic groups and activities. Evaluate clinical status response to treatment on a daily basis.
[2018-05-20] MEDS: LITHIUM CARBONATE ER 450 MG TABLET.ER PO SCH (20:57)
[2018-05-21] MEDS: PANTOPRAZOLE 40 MG TABLET PO SCH (08:13)
[2018-05-21] MEDS: RALOXIFENE 60 MG TAB PO SCH (08:13)
[2018-05-21] MEDS: CLOTRIMAZOLE 1% CREAM 15 GM TUBE TOPICAL SCH ×2 (08:14→20:26)
--- NOTE | 2018-05-21 13:54 | P.PN ---
Subjective Progress Note Date: 05/21/18 Principal diagnosis: Bipolar 1 disorder most recent episode manic with psychotic features I reviewed the medical record, interviewed the patient and discussed her treatment and treatment plan during team meeting. She continues to complain that she feels tired. She denied other concerns. She denied feeling depressed , hopeless, helpless or worthless. She denied having thoughts of or suicide. She denied experiencing auditory hallucinations. According to nursing record she seldom eats her full meals. She spends most of the day in bed and attends few therapeutic groups and activities. She slept 6 hours last night. Objective - Vital Signs Vital signs: Vital Signs Temp 98.6 F 05/21/18 06:31 Pulse 70 05/21/18 06:31 Resp 16 05/21/18 06:31 BP 107/62 05/21/18 06:31 Pulse Ox 98 05/20/18 14:00 Intake & Output 05/20/18 05/21/18 05/21/18 18:59 06:59 18:59 Intake Total 480 Balance 480 Intake: Oral 480 - Psychiatric Psychiatric Comment(s): She presented as a frail and disheveled appearing elderly female who is laying comfortably in bed. She appeared sedated. She had a blunted but bright facial expression. Her movements were slow. She had no abnormal movements. Her speech was spontaneous with decreased rhythm, rate and volume. Her affect was blunted but stable and appropriate. She was able to laugh and smile. She denied suicidal ideation, wishes or homicidal ideation. She denied such depressive cognitions as hopelessness, helplessness and worthlessness. She did not express ideas reference, paranoid ideation or delusions. Her thinking was concrete but her associations were coherent and logical. She did not appear to responding to internal stimuli. - Labs CBC & Chem 7: 05/16/18 16:33 05/20/18 10:11 Labs: Abnormal Lab Results - Last 24 Hours (Table) 05/20/18 Range/Units 10:11 BUN 26 H (7-17) mg/dL Creatinine 1.20 H (0.52-1.04) mg/dL Glucose 140 H (74-99) mg/dL Assessment and Plan Assessment: [place] is effective in treating her hermann. Her listlessness and energyless may be part of her post-manic recovery but the lithium may be contributing to the sedation. Monitor for signs and symptoms of a depressive episode. (1) Bipolar I disorder, most recent episode manic Current Visit: Yes Status: Acute Priority: High Code(s): F31.10 - BIPOLAR DISORD, CRNT EPISODE MANIC W/O PSYCH FEATURES, UNSP SNOMED Code(s): 44640270 (2) Chronic renal failure Current Visit: Yes Status: Chronic Priority: Medium Code(s): N18.9 - CHRONIC KIDNEY DISEASE, UNSPECIFIED SNOMED Code(s): 89530479 Plan: Continue inpatient psychiatric hospitalization due to severity of psychiatric illness. Continue lithium to 450 mg at bedtime. Repeat lithium level, BUN/ creatinine in 4 to 5 days. Continue to monitor safety. Encourage participation in therapeutic groups and activities. Evaluate clinical status response to treatment on a daily basis.
[2018-05-21] MEDS: LITHIUM CARBONATE ER 450 MG TABLET.ER PO SCH (20:26)
[2018-05-22] MEDS: PANTOPRAZOLE 40 MG TABLET PO SCH (09:48)
[2018-05-22] MEDS: RALOXIFENE 60 MG TAB PO SCH (09:48)
[2018-05-22] MEDS: CLOTRIMAZOLE 1% CREAM 15 GM TUBE TOPICAL SCH ×2 (09:48→21:54)
--- NOTE | 2018-05-22 14:44 | P.PN ---
Subjective Progress Note Date: 05/22/18 Principal diagnosis: Bipolar 1 disorder most recent episode manic with psychotic features I reviewed the medical record, interviewed the patient and discussed her treatment and treatment plan during team meeting. She complained that she feels too tired to get out of bed, walking to the cafeteria for meals or participate in therapeutic activities. She denied other concerns. She denied feeling depressed, hopeless, helpless or worthless. She denied having thoughts of or suicide. She denied experiencing auditory hallucinations. The nurse spoke with her son who stated that she typically becomes withdrawn and lethargic following a manic episode. According to nursing record she seldom eats her full meals. She spends most of the day in bed and attends few therapeutic groups and activities. She slept 6 hours last night. Objective - Vital Signs Vital signs: Vital Signs Temp 98.6 F 05/21/18 06:31 Pulse 73 05/21/18 21:23 Resp 16 05/21/18 06:31 BP 101/56 05/21/18 21:23 Pulse Ox 98 05/20/18 14:00 - Psychiatric Psychiatric Comment(s): She presented as a frail and disheveled appearing elderly female who is laying comfortably in bed. She had the blanket pulled up over her head. She did not appear sedated. She had a blunted but bright facial expression. Her movements were slow. She had no abnormal movements. Her speech was spontaneous with decreased rhythm, rate and volume. Her affect was blunted but stable and appropriate. She was able to laugh and smile. She denied suicidal ideation, wishes or homicidal ideation. She denied such depressive cognitions as hopelessness, helplessness and worthlessness. She did not express ideas reference, paranoid ideation or delusions. Her thinking was concrete but her associations were coherent and logical. She did not appear to responding to internal stimuli. - Labs CBC & Chem 7: 05/16/18 16:33 05/20/18 10:11 Assessment and Plan Assessment: [place] is effective in treating her hermann. Her listlessness and energyless is likely part of her post-manic recovery. Monitor for signs and symptoms of a depressive episode. (1) Bipolar I disorder, most recent episode manic Current Visit: Yes Status: Acute Priority: High Code(s): F31.10 - BIPOLAR DISORD, CRNT EPISODE MANIC W/O PSYCH FEATURES, UNSP SNOMED Code(s): 43845649 (2) Chronic renal failure Current Visit: Yes Status: Chronic Priority: Medium Code(s): N18.9 - CHRONIC KIDNEY DISEASE, UNSPECIFIED SNOMED Code(s): 50767247 Plan: Continue inpatient psychiatric hospitalization due to severity of psychiatric illness. Continue lithium to 450 mg at bedtime. Repeat lithium level, BUN/ creatinine 05/25/18. Continue to monitor safety. Encourage participation in therapeutic groups and activities. Evaluate clinical status response to treatment on a daily basis.
[2018-05-22] MEDS: LITHIUM CARBONATE ER 450 MG TABLET.ER PO SCH (21:52)
[2018-05-23] MEDS: PANTOPRAZOLE 40 MG TABLET PO SCH (09:44)
[2018-05-23] MEDS: RALOXIFENE 60 MG TAB PO SCH (09:44)
[2018-05-23] MEDS: CLOTRIMAZOLE 1% CREAM 15 GM TUBE TOPICAL SCH ×2 (09:45→20:17)
--- NOTE | 2018-05-23 16:45 | P.PN ---
Subjective Progress Note Date: 05/23/18 Principal diagnosis: Bipolar 1 disorder most recent episode manic with psychotic features I reviewed the medical record, interviewed the patient and discussed her treatment and treatment plan during team meeting. Again she complained that she feels too tired to get out of bed, walk to the cafeteria for meals or participate in therapeutic activities. She denied other concerns. She denied feeling depressed, hopeless, helpless or worthless. She denied having thoughts of or suicide. She denied experiencing auditory hallucinations. According to nursing record she seldom eats her full meals. She spends most of the day in bed and attends few therapeutic groups and activities. She slept 6 hours last night. Objective - Vital Signs Vital signs: Vital Signs Temp 97.7 F 05/23/18 07:20 Pulse 58 L 05/23/18 07:20 Resp 20 05/23/18 07:20 BP 86/50 05/23/18 07:20 Pulse Ox 98 05/20/18 14:00 - Psychiatric Psychiatric Comment(s): She presented as a frail and disheveled appearing elderly female who is laying comfortably in bed. She had the blanket pulled up over her head. She did not appear sedated. She had a blunted but bright facial expression. Her movements were slow. She had no abnormal movements. Her speech was spontaneous with normal rhythm, rate and volume. Her affect was blunted but stable and appropriate. She was able to laugh and smile. She denied suicidal ideation, wishes or homicidal ideation. She denied such depressive cognitions as hopelessness, helplessness and worthlessness. She did not express ideas reference, paranoid ideation or delusions. Her thinking was concrete but her associations were coherent and logical. She did not appear to responding to internal stimuli. - Labs CBC & Chem 7: 05/16/18 16:33 05/20/18 10:11 Assessment and Plan Assessment: [place] is effective in treating her hermann. Her listlessness and energyless is likely part of her post-manic recovery. Monitor for signs and symptoms of a depressive episode. (1) Bipolar I disorder, most recent episode manic Current Visit: Yes Status: Acute Priority: High Code(s): F31.10 - BIPOLAR DISORD, CRNT EPISODE MANIC W/O PSYCH FEATURES, UNSP SNOMED Code(s): 80697445 (2) Chronic renal failure Current Visit: Yes Status: Chronic Priority: Medium Code(s): N18.9 - CHRONIC KIDNEY DISEASE, UNSPECIFIED SNOMED Code(s): 27802863 Plan: Continue inpatient psychiatric hospitalization due to severity of psychiatric illness. Continue lithium to 450 mg at bedtime. Repeat lithium level, BUN/ creatinine 05/25/18. Continue to monitor safety. Encourage participation in therapeutic groups and activities. Evaluate clinical status response to treatment on a daily basis.
[2018-05-23] MEDS: LITHIUM CARBONATE ER 450 MG TABLET.ER PO SCH (20:17)
[2018-05-24] MEDS: RALOXIFENE 60 MG TAB PO SCH (09:34)
[2018-05-24] MEDS: PANTOPRAZOLE 40 MG TABLET PO SCH (09:34)
[2018-05-24] MEDS: CLOTRIMAZOLE 1% CREAM 15 GM TUBE TOPICAL SCH ×2 (09:34→20:03)
--- NOTE | 2018-05-24 10:58 | P.PN ---
Subjective Progress Note Date: 05/24/18 Principal diagnosis: Bipolar 1 disorder most recent episode manic with psychotic features I reviewed the medical record and interviewed the patient. Again she complained that she feels too tired to get out of bed, walk to the cafeteria for meals or participate in therapeutic activities. She denied other concerns. She denied feeling depressed, hopeless, helpless or worthless. She denied having thoughts of or suicide. She denied experiencing auditory hallucinations. With much prompting she changed out of the hospital gown into her casual clothes. According to nursing record she seldom eats her full meals. She spends most of the day in bed and attends few therapeutic groups and activities. She slept 7 hours last night. Objective - Vital Signs Vital signs: Vital Signs Temp 97.7 F 05/24/18 05:51 Pulse 59 L 05/24/18 05:51 Resp 15 05/24/18 05:51 BP 95/60 05/24/18 05:51 Pulse Ox 98 05/20/18 14:00 - Psychiatric Psychiatric Comment(s): She presented as a thin and frail elderly woman who was laying in bed dressed in hospital gown. She opened her eyes when I called her name and had a bright affect. Her speech was spontaneous with normal rate, rhythm and volume. Her affect was blunted but stable. Her associations were logical, coherent and goal directed. - Labs CBC & Chem 7: 05/16/18 16:33 05/20/18 10:11 Assessment and Plan Assessment: [place] is effective in treating her hermann. Her listlessness and energyless is likely part of her post-manic recovery. Monitor for signs and symptoms of a depressive episode. (1) Bipolar I disorder, most recent episode manic Current Visit: Yes Status: Acute Priority: High Code(s): F31.10 - BIPOLAR DISORD, CRNT EPISODE MANIC W/O PSYCH FEATURES, UNSP SNOMED Code(s): 00137235 (2) Chronic renal failure Current Visit: Yes Status: Chronic Priority: Medium Code(s): N18.9 - CHRONIC KIDNEY DISEASE, UNSPECIFIED SNOMED Code(s): 87680823 Plan: Continue inpatient psychiatric hospitalization due to severity of psychiatric illness. Continue lithium to 450 mg at bedtime. Repeat lithium level, BUN/ creatinine 05/25/18. Continue to monitor safety. Encourage to get out of bed, wearing casual clothes incident hospital gown and is in therapeutic groups and activities. Evaluate clinical status response to treatment on a daily basis.
[2018-05-24] MEDS: LITHIUM CARBONATE ER 450 MG TABLET.ER PO SCH (20:03)
[2018-05-24] MEDS: IBUPROFEN 400 MG TAB PO PRN (23:23)
[2018-05-25] MEDS: hydrOXYzine PAMOATE 25 MG CAP PO PRN (03:30)
[2018-05-25] MEDS: PANTOPRAZOLE 40 MG TABLET PO SCH (08:33)
[2018-05-25] MEDS: RALOXIFENE 60 MG TAB PO SCH (08:34)
--- NOTE | 2018-05-25 10:58 | P.PN ---
Subjective Progress Note Date: 05/25/18 Principal diagnosis: Bipolar 1 disorder most recent episode manic with psychotic features I reviewed the medical record and interviewed the patient. Yesterday she change from the hospital gown into casual close. Today, she is wearing the same clothing. She remains in bed most of the day. She denied feeling depressed, hopeless, helpless or worthless. She denied having thoughts of or suicide. She denied experiencing auditory hallucinations. She did not have her lithium or basic metabolic panel drawn today. She eats irregularly but, according to nursing staff, his drinking adequately. She slept 7 hours last night and does not attend therapeutic groups and activities. Objective - Vital Signs Vital signs: Vital Signs Temp 97.9 F 05/25/18 06:54 Pulse 59 L 05/25/18 06:54 Resp 16 05/25/18 06:54 BP 83/49 05/25/18 06:54 Pulse Ox 98 05/20/18 14:00 - Psychiatric Psychiatric Comment(s): She presented as a thin, frail and disheveled appearing elderly woman. She was laying in bed with the covers pulled over her head. She awoke when I called her name. She had a blunted but bright facial expression. She showed psychomotor retardation. Her gait is slow and wide-based. Her speech is not spontaneous and had decreased volume and rhythm. Her affect was flat. She denied suicidal ideation, wishes or homicidal ideation. She denied feeling hopeless, helpless or worthless. She did not express ideas reference, paranoid ideation or magical ideation. She denied hallucinations and did not appear to be responding to internal stimuli. - Labs CBC & Chem 7: 05/16/18 16:33 05/20/18 10:11 Assessment and Plan Assessment: [place] is effective in treating her hermann. Her listlessness and energyless is likely part of her post-manic recovery. Monitor for signs and symptoms of a depressive episode. (1) Bipolar I disorder, most recent episode manic Current Visit: Yes Status: Acute Priority: High Code(s): F31.10 - BIPOLAR DISORD, CRNT EPISODE MANIC W/O PSYCH FEATURES, UNSP SNOMED Code(s): 34099595 (2) Chronic renal failure Current Visit: Yes Status: Chronic Priority: Medium Code(s): N18.9 - CHRONIC KIDNEY DISEASE, UNSPECIFIED SNOMED Code(s): 65207292 Plan: Continue inpatient psychiatric hospitalization due to severity of psychiatric illness. Continue lithium to 450 mg at bedtime. She had the lithium administered this morning so we will need to reschedule the lithium level, BUN/ creatinine for tomorrow. Continue to monitor safety. Encourage to get out of bed, wearing casual clothes (inside of the hospital gown) and attend therapeutic groups and activities. Evaluate clinical status response to treatment on a daily basis.
[2018-05-25] MEDS: LITHIUM CARBONATE ER 450 MG TABLET.ER PO SCH (21:20)
[2018-05-26] MEDS: RALOXIFENE 60 MG TAB PO SCH (10:26)
[2018-05-26] MEDS: PANTOPRAZOLE 40 MG TABLET PO SCH (10:26)
[2018-05-26 11:19] LABS: Calcium 9.7 mg/dL (8.4-10.2); Lithium 0.9 mmol/L; Potassium 4.1 mmol/L (3.5-5.1)
--- NOTE | 2018-05-26 14:08 | P.PN ---
Subjective Progress Note Date: 05/26/18 Principal diagnosis: Bipolar 1 disorder most recent episode manic with psychotic features I reviewed the medical record, interviewed the patient and discussed her treatment and treatment plan during team meeting. She remains in her bed most of the day coming out only for meals. She does not participate in therapeutic groups and activities. She was more irritable and argumentative than on previous encounters. She was critical of her experience during this hospitalization. She let she does not go to groups because in the past they told her to "shut up" and asked her to "leave the room". I believe the latter may have occurred because during her acute manic episode she was inappropriate, intrusive, hyperverbal and non- directable. Objective - Vital Signs Vital signs: Vital Signs Temp 97.8 F 05/26/18 06:25 Pulse 51 L 05/26/18 06:25 Resp 18 05/26/18 06:25 BP 101/57 05/26/18 06:25 Pulse Ox 98 05/20/18 14:00 Intake & Output 05/25/18 05/26/18 05/26/18 18:59 06:59 18:59 Weight 47.6 kg - Psychiatric Psychiatric Comment(s): She presented as a disheveled thin and elderly female who was laying in bed with the covers pulled of her head. In response first name she remove the covers, made eye contact and attended to the interview. She had a irritable facial expression. She showed no abnormality of psychomotor activity. She was not restless, impulsive or agitated. Her speech was not spontaneous and when she talked it had a normal rhythm and volume. Her affect was irritable and at times inappropriate. She denied suicidal ideation, wish us homicidal ideation. She did not express ideas reference or paranoid ideation. Her thinking was concrete and her associations were not fully coherent or logical. She did not express clang associations or neologisms. She denied hallucinations and did not appear to be responding to internal stimuli. - Labs CBC & Chem 7: 05/16/18 16:33 05/26/18 10:46 Labs: Abnormal Lab Results - Last 24 Hours (Table) 05/26/18 Range/Units 10:46 BUN 30 H (7-17) mg/dL Creatinine 1.30 H (0.52-1.04) mg/dL Serum lithium level 0.9 Assessment and Plan Assessment: She is more irritable than on prior encounters and her thinking is not organized. She shows no insight or understanding into her illness but has been compliant with medications. She has chronic renal failure and a B and creatinine have increased from 05/20/2018. Her lithium level remains at 0.9 despite reduction of lithium to 450 mg per day. (1) Bipolar I disorder, most recent episode manic Current Visit: Yes Status: Acute Priority: High Code(s): F31.10 - BIPOLAR DISORD, CRNT EPISODE MANIC W/O PSYCH FEATURES, UNSP SNOMED Code(s): 15282642 (2) Chronic renal failure Current Visit: Yes Status: Chronic Priority: Medium Code(s): N18.9 - CHRONIC KIDNEY DISEASE, UNSPECIFIED SNOMED Code(s): 55077418 Plan: Continue inpatient hospitalization. Continue safety precautions. Reconsult medicine to give a person with the increase in the creatinine is due to dehydration rather than worsening kidney functioning. Begin Zyprexa 5 mg daily to address the irritability. Continue lithium 450 mg per day. Repeat the BUN and creatinine and 48 hours. We may have to discontinue lithium and restart another mood stabilizer such as Depakote, carbamazepine on Lamictal. Encourage activities as much as possible. Evaluate clinical status response treatment on inpatient basis.
[2018-05-26] MEDS: LITHIUM CARBONATE ER 450 MG TABLET.ER PO SCH (20:40)
[2018-05-27] MEDS: OLANZapine 5 MG TAB PO SCH (09:13)
[2018-05-27] MEDS: RALOXIFENE 60 MG TAB PO SCH (09:13)
[2018-05-27] MEDS: PANTOPRAZOLE 40 MG TABLET PO SCH (09:14)
--- NOTE | 2018-05-27 15:14 | P.PN ---
Subjective Progress Note Date: 05/27/18 Principal diagnosis: Bipolar 1 disorder most recent episode manic with psychotic features I reviewed the medical record, interviewed the patient and discussed her treatment and treatment plan during team meeting. She remains compliant with lithium and took the initial dose of olanzapine. I talked to her about the most recent BUN and creatinine. I explained that the lithium may be worsening her kidney functioning. I recommend we discontinue lithium and restart Depakote. She replies that she "does not care about my kidneys ... I will not take Depakote. It makes me sick. I can't think straight." We discussed other options such as carbamazepine and she alleged that she developed a neutropenia when she was prescribed carbamazepine. We also talked about changes antipsychotic from olanzapine back to Abilify and begin administering Abilify Maintaina. She replied that she "will not take shots". She stated she will not take the injections were Abilify, Invega or Haldol. Objective - Vital Signs Vital signs: Vital Signs Temp 97.8 F 05/27/18 06:24 Pulse 57 L 05/27/18 06:24 Resp 16 05/27/18 06:24 BP 107/55 05/27/18 06:24 Pulse Ox 99 05/26/18 14:41 - Psychiatric Psychiatric Comment(s): She presented as a thin, disheveled and irritable elderly woman. She is laying in bed and refused to come to the office for the interview. She was not agitated, restless or impulsive. Her gait was rapid but stable. Her speech was spontaneous with slight increase in frequency. Her affect was irritable but not intense. She did not express ideas reference or paranoid ideation. Her thinking was concrete and associations were not fully organized coherent. She did not appear to be responding to internal stimuli. - Labs CBC & Chem 7: 05/16/18 16:33 05/26/18 10:46 Assessment and Plan Assessment: She is refusing to restart a mood stabilizer other than lithium or start an antipsychotic other than olanzapine or transition to a long-acting injectable antipsychotic medication. She is much less manic than on admission but she remains irritable. (1) Bipolar I disorder, most recent episode manic Current Visit: Yes Status: Acute Priority: High Code(s): F31.10 - BIPOLAR DISORD, CRNT EPISODE MANIC W/O PSYCH FEATURES, UNSP SNOMED Code(s): 48445524 (2) Chronic renal failure Current Visit: Yes Status: Chronic Priority: Medium Code(s): N18.9 - CHRONIC KIDNEY DISEASE, UNSPECIFIED SNOMED Code(s): 19149664 Plan: Continue inpatient hospitalization. Continue safety precautions. Reconsult medicine regarding worsening kidney functioning. Continue Zyprexa 5 mg daily to address the irritability and titrated according to clinical effect and tolerance. Continue lithium 450 mg per day. Repeat the BUN and creatinine tomorrow. Continue the discussion of alternatives to lithium and treatment with a long-acting injectable antipsychotic. Encourage activities as much as possible. Evaluate clinical status response treatment on inpatient basis.
[2018-05-27] MEDS: LITHIUM CARBONATE ER 450 MG TABLET.ER PO SCH (20:21)
[2018-05-28] MEDS: PANTOPRAZOLE 40 MG TABLET PO SCH (09:40)
[2018-05-28] MEDS: OLANZapine 5 MG TAB PO SCH (09:40)
[2018-05-28] MEDS: RALOXIFENE 60 MG TAB PO SCH (09:40)
[2018-05-28 09:55] LABS: Calcium 9.2 mg/dL (8.4-10.2)
[2018-05-28] MEDS: lamoTRIgine 25 MG TAB PO SCH (11:30)
--- NOTE | 2018-05-28 14:46 | P.PN ---
Subjective Progress Note Date: 05/28/18 Principal diagnosis: Bipolar 1 disorder most recent episode manic with psychotic features, renal failure I reviewed the medical record, attempted to interview the patient and discuss her treatment and treatment plan during team meeting. She was irritable and minimally cooperative. She was laying in bed and refused to make eye contact. She denied problems or concerns other than wishing to go home. We talked about the most recent BUN and creatinine. I explained that I'm concerned about her kidney functioning. Before I could finish status she interrupts me and yelled "I don't care about my kidneys." I then explained that because of the worsening creatinine I will discontinue lithium and restarted her on Lamictal. She posed no objections and replied "do what you want." She does not attend therapeutic groups or activities. She does not interact socially with either staff or peers. She spends her time in her room and comes out only for meals. Objective - Vital Signs Vital signs: Vital Signs Temp 97.8 F 05/27/18 06:24 Pulse 57 L 05/27/18 06:24 Resp 16 05/27/18 06:24 BP 107/55 05/27/18 06:24 Pulse Ox 99 05/26/18 14:41 - Psychiatric Psychiatric Comment(s): She presented as a thin and disheveled appearing elderly woman who is laying in bed. She was wearing same clothing since the weekend. She did not make eye contact. She was irritable, angry and uncooperative. She showed psychomotor retardation but no abnormal movements. She denied suicidal ideation or wishes. She did not express ideas reference, paranoia or paranoid delusions. Her thinking was concrete and associations did not appear fully logical or goal directed. - Labs CBC & Chem 7: 05/16/18 16:33 05/26/18 10:46 Labs: Chloride 101, potassium 4.0, sodium 140, creatinine 1.38, BUN 32 and calcium 9.2 Assessment and Plan Assessment: She is not manic or hypomanic but remains irritable and angry. She has worsening kidney function with rising urine and creatinine. She is compliant with prescribed medications. (1) Bipolar I disorder, most recent episode manic Current Visit: Yes Status: Acute Priority: High Code(s): F31.10 - BIPOLAR DISORD, CRNT EPISODE MANIC W/O PSYCH FEATURES, UNSP SNOMED Code(s): 24088792 (2) Chronic renal failure Current Visit: Yes Status: Chronic Priority: Medium Code(s): N18.9 - CHRONIC KIDNEY DISEASE, UNSPECIFIED SNOMED Code(s): 70311148 Plan: Continue inpatient hospitalization. Continue safety precautions. Discontinue lithium. Increase Zyprexa to 7.5 mg at bedtime. Restart Lamictal 25 mg daily encourage hydration. Repeat BUN/creatinine in 2 days. Encourage activities as much as possible. Evaluate clinical status response treatment on inpatient basis.
[2018-05-28] MEDS: OLANZapine 2.5 MG TAB PO SCH (20:27)
[2018-05-28] MEDS: IBUPROFEN 400 MG TAB PO PRN (22:52)
[2018-05-29 09:05] VITALS: BMI 18.6
[2018-05-29] MEDS: PANTOPRAZOLE 40 MG TABLET PO SCH (09:22)
[2018-05-29] MEDS: lamoTRIgine 25 MG TAB PO SCH (09:23)
[2018-05-29] MEDS: RALOXIFENE 60 MG TAB PO SCH (09:23)
--- NOTE | 2018-05-29 15:07 | P.PN ---
Subjective Principal diagnosis: Bipolar 1 disorder most recent episode manic with psychotic features, renal failure I reviewed the medical record, interviewed the patient and discussed her treatment and treatment plan during team meeting. She was uncooperative and would not get out of bed a removable covers from over her face. In response to questions about her current state she replied "fine". She denied problems or concerns often wished to be discharged and return home. collar worker scheduled a family meeting with her son tomorrow afternoon. She stated that he wishes her to be discharged to his care until she recovers unable to return to her home. Her counseling center manager has not responded to her request to evaluate her rising creatinine and BUN. Objective - Vital Signs Vital signs: Vital Signs Temp 98.4 F 05/29/18 06:35 Pulse 48 L 05/29/18 06:35 Resp 16 05/29/18 06:35 BP 95/55 05/29/18 06:35 Pulse Ox 99 05/26/18 14:41 Intake & Output 05/28/18 05/29/18 05/29/18 18:59 06:59 18:59 Weight 47.6 kg - Psychiatric Psychiatric Comment(s): She presented as a disheveled appearing thin and unhealthy female who was irritable and uncooperative. She does not make eye contact but appeared to attend to the interview. She showed psychomotor retardation but no abnormal movements. Her speech was not spontaneous. Her affect was irritable. She did not express ideas reference, paranoid ideation or delusional thoughts. Her thinking was concrete but his associations appeared coherent and logical. She did not appear to be responding to internal stimuli. - Labs CBC & Chem 7: 05/16/18 16:33 05/28/18 07:32 Assessment and Plan (1) Bipolar I disorder, most recent episode manic Current Visit: Yes Status: Acute Priority: High Code(s): F31.10 - BIPOLAR DISORD, CRNT EPISODE MANIC W/O PSYCH FEATURES, UNSP SNOMED Code(s): 42475699 (2) Chronic renal failure Current Visit: Yes Status: Chronic Priority: Medium Code(s): N18.9 - CHRONIC KIDNEY DISEASE, UNSPECIFIED SNOMED Code(s): 66310513 Plan: Continue inpatient hospitalization. Continue safety precautions. Zyprexa to 7.5 mg at bedtime. Continue Lamictal 25 mg daily and titrate according to tolerance and clinical effect. Encourage hydration. Repeat BUN/creatinine tomorrow. Consult nephrology to evaluate the racing BUN and creatinine. Encourage activities as much as possible. Evaluate clinical status response treatment on inpatient basis.
--- NOTE | 2018-05-29 17:42 | PN ---
PROGRESS NOTE DATE OF SERVICE: 05/27/2018 The patient's BUN and creatinine are still elevated. Otherwise, she is clinically stable. These will be repeated and if they continue to climb, she will require intravenous fluids challenge and Nephrology consult. ROXANNE / TAYLOR: [id number] /
[2018-05-29] MEDS: OLANZapine 2.5 MG TAB PO SCH (20:34)
[2018-05-30 06:35] VITALS: TEMP 98.8
[2018-05-30] MEDS: RALOXIFENE 60 MG TAB PO SCH (09:35)
[2018-05-30] MEDS: lamoTRIgine 25 MG TAB PO SCH (09:35)
[2018-05-30] MEDS: PANTOPRAZOLE 40 MG TABLET PO SCH (09:35)
[2018-05-30 12:13] VITALS: BP 102/56; PULSE 81; RESP 16
[2018-05-30 12:37] LABS: Calcium 8.8 mg/dL (8.4-10.2); Potassium 4.2 mmol/L (3.5-5.1)
--- NOTE | 2018-05-30 15:24 | CONS ---
CONSULTATION REASON FOR CONSULT: Renal failure. HISTORY OF PRESENT ILLNESS: Patient is a 68-year-old female who was admitted to Inpatient Psych for worsening schizophrenia. She was admitted on 04/27/2018. Patient's creatinine was about 1.17 initially. It did go up to 1.54 on 05/11 and subsequently has been around 1.2 to 1.3 mg/dL. Today it is up to 1.4. Patient has been on lithium, and according to Psychiatry she was best controlled with lithium, which was eventually discontinued 1-2 days ago because of worsening renal function. There is concern about progression of her schizophrenia without the lithium. Patient is noted to have low blood pressures with systolic of about 92 to 95 mmHg. Her heart rate has also occasionally been noticed to be 48 to 51 per minute. Upon reviewing of medications, patient was noticed to be on Motrin, which is now discontinued. Patient states she has been voiding well. She denies any abdominal pain, chest pain, shortness of breath, nausea or vomiting. PAST MEDICAL HISTORY: 1. Schizophrenia. 2. Gastroesophageal reflux disease. MEDICATIONS AT HOME PRIOR TO ADMISSION: 1. Lamictal. 2. Evista. 3. Protonix. 4. Zyprexa. SOCIAL HISTORY: Positive for smoking. No history of drug abuse or alcohol abuse. REVIEW OF SYSTEMS: As per HPI. Other systems negative. PHYSICAL EXAMINATION: Blood pressure is 92/70, heart rate 86 per minute. Patient is afebrile. EXAMINATION OF THE HEART: S1, S2. EXAMINATION OF LUNGS: Bilateral breath sounds are heard. ABDOMEN: Soft, non-tender. Examination of lower extremities shows no evidence of edema. [facility] exam is grossly intact. LABS: Sodium 138, potassium 4.2, BUN 34, serum creatinine 1.4, calcium 8.8. [place] level was 0.9. UA is not available. ASSESSMENT: 1. Acute kidney injury, mostly associated with hypotension and hypoperfusion; patient may be mildly hypovolemic as well. She is encouraged to increase her oral intake. I did discuss IV fluids and patient is not too keen on that at this point. I will continue to encourage her to increase her oral intake. At this point, given the worsening renal function, it is best to avoid the lithium. However, if patient is able to take the IV fluids, her renal function will improve and then we may be able to get her back on her lithium. Her lithium levels have not been elevated. 2. Rule out chronic kidney disease. Check a urinalysis. Previous creatinine was 1.1. 3. Schizophrenia with acute exacerbation, currently admitted in Inpatient Psych. PLAN: Encourage increased oral intake. Check urinalysis. Repeat labs in a.m. If patient agrees for IV fluids, her renal function will show significant improvement and eventually she could be restarted on lithium if needed. Thank you for this consultation. We will continue to follow the patient with you during her hospitalization. MMMARIA DEL CARMENL / IJN: [id number] /
--- NOTE | 2018-05-30 17:05 | P.DS ---
Providers Date of admission: 04/26/18 13:41 Attending physician: Terrence Zamora MD Consults: 04/26/18 14:40 Consult Physician Routine Consulting Provider: Saud Peng Consult Reason/Comments: history and physical Do you want consulting provider notified?: Yes 05/15/18 10:15 Consult Physician Routine Consulting Provider: Saud Peng Consult Reason/Comments: Low blood pressure and abnormal TSH and Free T4 Do you want consulting provider notified?: Yes 05/29/18 11:30 Consult Physician Routine Consulting Provider: Car Vega Consult Reason/Comments: Increasing creatinine and BUN Do you want consulting provider notified?: Yes Primary care physician: Saud Peng - Discharge Diagnosis(es) (1) Bipolar I disorder, most recent episode manic Status: Acute Priority: High (2) Chronic renal failure Status: Chronic Priority: Medium Hospital Course: The patient is a 68-year-old female with a well-established diagnosis of a bipolar disorder. She also has history of renal failure. She presented to [facility] involuntarily with an acute manic state. She was agitated restless. Her speech was pressured, nonsensical and she expressed flight of ideas. She had delusions of grandeur and expressed paranoid and persecutory delusions. We admitted her involuntarily to the psychiatric unit initially under care of . He completed the necessary documents for involuntary hospitalization. She met with her tax associate attorney and deferred the probate hearing. We initially treated her hermann with Zyprexa 10 mg daily. The attending psychiatrist discontinued the Zyprexa to hyperlipidemia. We treated her hermann and psychosis with Haldol Haldol 10 mg daily and Neurontin 600 mg twice a day. Her hermann and psychosis did not improve with doses up to 30 mg of Haldol per day. The attending psychiatrist discontinued the Haldol and we started Zyprexa 10 mg 3 times a day and after consulting with medicine restarted lithium 300 mg twice a day. The combination of lithium and Zyprexa was effective in reducing the severity of hermann. However, the patient developed more marked sedation. The Zyprexa was tapered and eventually discontinued and lithium was continued at 450 mg at bedtime. Her BUN and creatinine gradually increase when she was taking just the lithium. We discontinued lithium. The patient would not give consent to treatment with Depakote or Tegretol due to history of adverse reactions and intolerance. She agreed to restart the Lamictal and Zyprexa. We treated her symptoms with 10 mg of Zyprexa and 25 mg of Lamictal. We consulted with nephrology who determined that the BUN and creatinine changes were prerenal. She recommended to encourage hydration. kettle worker met with her and her son. He felt comfortable with her living with him while she recovers. At the time of discharge she presented as a thin disheveled and irritable elderly woman. She made eye contact and attended the interview. She had no distinguishing features or prominent physical abnormalities. She had a irritable facial expression. She was alert and oriented to person, place and time. Speech was spontaneous with slight decrease in rate but normal rhythm and volume. Her affect was irritable. She denied suicidal ideation or wishes. She denied homicidal ideation. She feels helpless regarding her chronic mental illness and need for the health treatment but denied feelings of hopelessness or helplessness. She did not express ideas reference, paranoid ideation or delusional thoughts. Her thinking was concrete but her associations were coherent. She denied hallucinations and did not appear to be responding to internal stimuli. Patient Condition at Discharge: Stable Plan - Discharge Summary New Discharge Prescriptions: New lamoTRIgine [LaMICtal] 25 mg PO DAILY #30 tab OLANZapine [ZyPREXA] 7.5 mg PO HS #90 tab Continue Pantoprazole [Protonix] 40 mg PO DAILY #30 tablet. Raloxifene [Evista] 60 mg PO DAILY #30 tab Discontinued Atorvastatin [Lipitor] 10 mg PO HS #30 tab QUEtiapine FUMARATE [SEROquel XR] 50 mg PO HS Gabapentin [Neurontin] 300 mg PO BID Discharge Medication List OLANZapine [ZyPREXA] 7.5 mg PO HS #90 tab 05/30/18 [Rx] Pantoprazole [Protonix] 40 mg PO DAILY #30 tablet. 05/30/18 [Rx] Raloxifene [Evista] 60 mg PO DAILY #30 tab 05/30/18 [Rx] lamoTRIgine [LaMICtal] 25 mg PO DAILY #30 tab 05/30/18 [Rx] Follow up Appointment(s)/Referral(s): [facility] [Outside] - 06/02/18 10:00 am (Intake on 06/02/18 at 10:00 with [facility] ) Saud Peng MD [Primary Care Provider] - 1 Week Patient Instructions/Handouts: Bipolar Disorder (DC) Activity/Diet/Wound Care/Special Instructions: Follow up with Dr. Diaz for Kidney function tests June 12 at 2:40, Office phone number [phone] [place] [address] [address] [facility], [address] Peng, follow up with your primary care physician and have your TSH and Free T4 re-checked in 6 weeks. Activity and diet as tolerated. Avoid the use of street drugs and alcohol. Remove all firearms from the home. Take all medications as prescribed. Follow up with your Primary Care Physician in one to two days. When you are in need of refills on your medications please contact your medical provider and/or your outpatient psychiatrist to have this done. Please go to the scheduled outpatient appointment for aftercare. If symptoms return or become worse call the crisis line and/ or go the nearest emergency room for an evaluation. l Discharge Disposition: HOME SELF-CARE
--- NOTE | 2018-06-02 14:25 | CDI ---
Last Revision, November 2017 Documentation Clarification Form Date: 06/02/18 From: Sophia Oliva Phone: If you have a question regarding this query, please contact Daily Orozco at [phone] between 8am and 5pm Admit Date: 04/26/2018 1:41:00 PM Patient Name: Kim Grant Visit Number: [id number] Discharge Date: 05/30/18 ATTENTION: The Clinical Documentation Specialists (CDI) and [facility] Coding Staff appreciate your assistance in clarifying documentation. Please respond to the clarification below the line at the bottom and electronically sign. The CDI & [facility] Coding staff will review the response and follow-up if needed. Please note: Queries are made part of the Legal Health Record. If you have any questions, please contact the author of this message via ITS. Dr. Luiza Diaz Chronic renal failure is documented in the H&P, the progress notes and in the discharge summary. History/Risk Factors: Patient was admitted with bipolar I disorder and has a history of GERD, hypothyroid and COPD. Clinical Indicators: Abnormal creatinine and GFR levels. Current CR/GFR: Creatinine 1.20 on admit, 1.40 on discharge. GFR: 48 on admit and 39 on didscharge. In order to capture the severity of condition, please clarify if the condition signifies: CKD Stage 1 (GFR > 90) CKD Stage 2 (GFR 60-89) CKD Stage 3 (GFR 30-59) CKD Stage 4 (GFR 15-29) CKD Stage 5 (GFR <15) ESRD Other, please specify stage 3 Unable to determine MTDD
== END 2018-05-30 14:33 | disposition home or self-care (01) | DRG 885 ==
LOC: 3MHU 13:41
PROVIDERS: ADMIT Psychiatry & Neurology Psychiatry; ATTEND Psychiatry & Neurology Psychiatry
DX: F31.2 Bipolar disorder, current episode manic severe with psychotic features (principal); N17.9 Acute kidney failure, unspecified; I95.9 Hypotension, unspecified; N18.3 Chronic kidney disease, stage 3 (moderate); J44.9 Chronic obstructive pulmonary disease, unspecified; B35.1 Tinea unguium; E03.9 Hypothyroidism, unspecified; E78.5 Hyperlipidemia, unspecified; F17.200 Nicotine dependence, unspecified, uncomplicated; K21.9 Gastro-esophageal reflux disease without esophagitis; L30.1 Dyshidrosis [pompholyx]; M85.80 Other specified disorders of bone density and structure, unspecified site; R25.1 Tremor, unspecified; R60.0 Localized edema; T42.6X5A Adverse effect of other antiepileptic and sedative-hypnotic drugs, initial encounter; Z91.83 Wandering in diseases classified elsewhere; Z79.899 Other long term (current) drug therapy; Y92.009 Unspecified place in unspecified non-institutional (private) residence as the place of occurrence of the external cause
CPT/HCPCS: 70450; 71046; 74176; 80048; 80053; 80061; 80178; 82024; 82533; 82565; 83036; 84439; 84443; 84450; 84460; 84520; 85025; 95816

== ENCOUNTER 2018-06-11 19:30 | Emergency (ER) | payer MEDICARE ==
--- NOTE | 2018-06-11 20:08 | ED ---
General Adult HPI - General Source: patient, RN notes reviewed Mode of arrival: ambulatory Limitations: no limitations <Richar Grant - Last Filed: 06/11/18 20:06> <Vinod Mojica - Last Filed: 06/12/18 07:04> - General Chief complaint: Psychiatric Symptoms Stated complaint: mental health Time Seen by Provider: 06/11/18 19:53 - History of Present Illness Initial comments: Patient is a pleasant 68-year-old female presenting to the emergency department for mental health evaluation. Patient arrives with her family member. Patient was recently discharged from the hospital several weeks ago. Medications were adjusted at this point however patient and family does not feel they are working well. Patient has not been sleeping well. Patient has been manic. Patient has been hyperverbal. Patient has been angry and verbally abusive at times. Patient denies suicidal thoughts. Patient denies hallucinations however family states patient has-been talking to people who are not there at times. Patient does have a history of similar symptoms previously associated with schizophrenia and bipolar. (Richar Grant) - Related Data Home Medications Medication Instructions Recorded Confirmed Atorvastatin [Lipitor] 10 mg PO HS 06/11/18 06/11/18 Gabapentin [Neurontin] 300 mg PO BID 06/11/18 06/11/18 Haloperidol [Haldol] 5 mg PO HS 06/11/18 06/11/18 Levothyroxine Sodium [Synthroid] 125 mcg PO DAILY 06/11/18 06/11/18 QUEtiapine [SEROquel] 200 mg PO HS 06/11/18 06/11/18 Previous Rx's Medication Instructions Recorded OLANZapine [ZyPREXA] 7.5 mg PO HS #90 tab 05/30/18 Pantoprazole [Protonix] 40 mg PO DAILY #30 tablet. 05/30/18 Raloxifene [Evista] 60 mg PO DAILY #30 tab 05/30/18 lamoTRIgine [LaMICtal] 25 mg PO DAILY #30 tab 05/30/18 Allergies Allergy/AdvReac Type Severity Reaction Status Date / Time Phenothiazines Allergy Unknown Verified 06/11/18 20:16 Review of Systems ROS Other: All systems not noted in ROS Statement are negative. Constitutional: Denies: fever Eyes: Denies: eye pain ENT: Denies: ear pain Respiratory: Denies: cough Cardiovascular: Denies: chest pain Endocrine: Denies: fatigue Gastrointestinal: Denies: abdominal pain Genitourinary: Denies: urgency Musculoskeletal: Denies: back pain Skin: Denies: rash Neurological: Denies: weakness Psychiatric: Denies: depression, suicidal thoughts <Richar Grant - Last Filed: 06/11/18 20:06> ROS Other: All systems not noted in ROS Statement are negative. <GalinaVinod - Last Filed: 06/12/18 07:04> ROS Statement: Those systems with pertinent positive or pertinent negative responses have been documented in the HPI. Past Medical History Past Medical History: COPD, GERD/Reflux, Hyperlipidemia, Musculoskeletal Disorder, Thyroid Disorder Additional Past Medical History / Comment(s): brittle teeth can not eat anything hard needs to have soft diet chronic kidney disease; Ostopenia, son stted pt was told to stop taking thyroid meds. History of Any Multi-Drug Resistant Organisms: None Reported Past Surgical History: Adenoidectomy, Breast Surgery, Section, Tonsillectomy Additional Past Surgical History / Comment(s): biopsy left breast-benign,c section, rhinoplasty Past Anesthesia/Blood Transfusion Reactions: No Reported Reaction Additional Past Anesthesia/Blood Transfusion Reaction / Comment(s): DOES NOT EVER WANT A BLOOD TRANSFUSION Past Psychological History: Anxiety, Bipolar, Schizophrenia Smoking Status: Current every day smoker Past Alcohol Use History: None Reported Past Drug Use History: None Reported - Past Family History Father History Unknown: Yes Family Medical History: Myocardial Infarction ([place]) Brother(s) Family Medical History: Cancer Additional Family Medical History / Comment(s): Brother had testicular cancer. <Richar Grant - Last Filed: 06/11/18 20:06> General Exam Limitations: no limitations General appearance: alert, in no apparent distress Head exam: Present: atraumatic Eye exam: Present: normal appearance, PERRL ENT exam: Present: normal oropharynx Neck exam: Present: normal inspection Respiratory exam: Present: normal lung sounds bilaterally Cardiovascular Exam: Present: regular rate, normal rhythm GI/Abdominal exam: Present: soft. Absent: tenderness Neurological exam: Present: alert. Absent: motor sensory deficit Psychiatric exam: Present: manic Expanded Focused psych exam: Present: restlessness, flight of ideas Skin exam: Present: normal color <Richar Grant - Last Filed: 06/11/18 20:06> Course <Richar Grant - Last Filed: 06/11/18 20:06> <Vinod Mojica - Last Filed: 06/12/18 07:04> Vital Signs 06/11/18 06/12/18 19:45 04:07 Temperature 98.5 F 98 F Pulse Rate 105 H 87 Respiratory 20 18 Rate Blood Pressure 130/88 95/62 O2 Sat by Pulse 96 98 Oximetry - Reevaluation(s) Reevaluation #1: 06/12/18 0100 Patient's care was signed out at shift change awaiting EPS evaluation. I did reevaluate the patient, she is hyperverbal and headache. He completed a clinical certification for this patient. She is currently awaiting psychiatric placement. (Vinod Mojica) Reevaluation #2: 06/12/18 0700 06/12/18 07:02 Patient will be transferred to [facility] for further psychiatric evaluation and treatment. (Vinod Mojica) Medical Decision Making - Lab Data Result diagrams: 06/11/18 20:26 06/11/18 20:26 <Vinod Mojica - Last Filed: 06/12/18 07:04> - Lab Data Lab Results 06/11/18 06/11/18 06/11/18 Range/Units 20:26 20:26 20:26 WBC 5.9 (3.8-10.6) k/uL RBC 4.08 (3.80-5.40) m/uL Hgb 11.9 (11.4-16.0) gm/dL Hct 36.4 (34.0-46.0) % MCV 89.3 (80.0-100.0) fL MCH 29.2 (25.0-35.0) pg MCHC 32.7 (31.0-37.0) g/dL RDW 15.4 (11.5-15.5) % Plt Count 309 (150-450) k/uL Neutrophils % 53 % Lymphocytes % 35 % Monocytes % 6 % Eosinophils % 2 % Basophils % 1 % Neutrophils # 3.1 (1.3-7.7) k/uL Lymphocytes # 2.1 (1.0-4.8) k/uL Monocytes # 0.4 (0-1.0) k/uL Eosinophils # 0.1 (0-0.7) k/uL Basophils # 0.0 (0-0.2) k/uL Sodium 140 (137-145) mmol/L Potassium 3.8 (3.5-5.1) mmol/L Chloride 106 (98-107) mmol/L Carbon Dioxide 23 (22-30) mmol/L Anion Gap 11 mmol/L BUN 19 H (7-17) mg/dL Creatinine 1.69 H (0.52-1.04) mg/dL Est GFR (CKD-EPI)AfAm 36 (>60 ml/min/1.73 sqM) Est GFR (CKD-EPI)NonAf 31 (>60 ml/min/1.73 sqM) Glucose 112 H (74-99) mg/dL Calcium 9.2 (8.4-10.2) mg/dL Urine Color Light Yellow Urine Appearance Clear (Clear) Urine pH 6.0 (5.0-8.0) Ur Specific Arab 1.005 (1.001-1.035) Urine Protein Negative (Negative) Urine Glucose (UA) Negative (Negative) Urine Ketones Negative (Negative) Urine Blood Negative (Negative) Urine Nitrite Negative (Negative) Urine Bilirubin Negative (Negative) Urine Urobilinogen <2.0 (<2.0) mg/dL Ur Leukocyte Esterase Negative (Negative) Urine Opiates Screen Not Detected (NotDetected) Ur Oxycodone Screen Not Detected (NotDetected) Urine Methadone Screen Not Detected (NotDetected) Ur Propoxyphene Screen Not Detected (NotDetected) Ur Barbiturates Screen Not Detected (NotDetected) U Tricyclic Antidepress Not Detected (NotDetected) Ur Phencyclidine Scrn Not Detected (NotDetected) Ur Amphetamines Screen Not Detected (NotDetected) U Methamphetamines Scrn Not Detected (NotDetected) U Benzodiazepines Scrn Not Detected (NotDetected) Urine Cocaine Screen Not Detected (NotDetected) U Marijuana (THC) Screen Not Detected (NotDetected) Serum Alcohol <10 mg/dL Disposition <Richar Grant - Last Filed: 06/11/18 20:06> Is patient prescribed a controlled substance at d/c from ED?: No Time of Disposition: 07:04 - Out of Hospital Transfer - Req. Specs Out of Hospital Transfer - Requested Specifics: Psychiatric Non-ICU (Transfer to psychiatric facility.) <Vinod Mojica - Last Filed: 06/12/18 07:04> Clinical Impression: Chronic renal failure, Bipolar I disorder, most recent episode manic, Depression, Adriane (monopolar) single episode or unspecified Disposition: TRANSFER TO PSYCH HOSP/UNIT Condition: Stable Referrals: Saud Peng MD [Primary Care Provider] - 1-2 days
[2018-06-11 20:36] LABS: Appearance,Urine Clear (Clear); Basophils % (A) 1 %; Bilirubin,Urine Negative (Negative); Blood,Urine Negative (Negative); Color,Urine Light Yellow; Eosinophils # (A) 0.1 k/uL (0-0.7); Eosinophils % (A) 2 %; Glucose,Urine (UA) Negative (Negative); HCT 36.4 % (34.0-46.0); HGB 11.9 gm/dL (11.4-16.0); Ketones,Urine Negative (Negative); Leukocyte Esterase,Urine Negative (Negative); Lymphocytes # (A) 2.1 k/uL (1.0-4.8); Lymphocytes % (A) 35 %; MCH 29.2 pg (25.0-35.0); MCHC 32.7 g/dL (31.0-37.0); MCV 89.3 fL (80.0-100.0); Mean Platelet Volume 6.7; Monocytes # (A) 0.4 k/uL (0-1.0); Monocytes % (A) 6 %; Neutrophils # (A) 3.1 k/uL (1.3-7.7); Neutrophils % (A) 53 %; Nitrite,Urine Negative (Negative); Platelet Count 309 k/uL (150-450); Protein,Urine Negative (Negative); RBC 4.08 m/uL (3.80-5.40); RDW 15.4 % (11.5-15.5); Specific Gravity,Urine 1.005 (1.001-1.035); Urobilinogen,Urine <2.0 mg/dL (<2.0); WBC 5.9 k/uL (3.8-10.6)
[2018-06-11 20:47] LABS: Alcohol <10 mg/dL; Anion Gap 11 mmol/L; Blood Urea Nitrogen 19 mg/dL (7-17); Calcium 9.2 mg/dL (8.4-10.2); Carbon Dioxide 23 mmol/L (22-30); Chloride 106 mmol/L (98-107); Glucose 112 mg/dL (74-99); Potassium 3.8 mmol/L (3.5-5.1); Sodium 140 mmol/L (137-145)
[2018-06-11 20:48] LABS: Amphetamine Screen,Urine Not Detected (NotDetected); Barbiturate Screen,Urine Not Detected (NotDetected); Benzodiazepines Screen,Urine Not Detected (NotDetected); Cocaine Screen,Urine Not Detected (NotDetected); Methadone Screen, Urine Not Detected (NotDetected); Opiate Screen,Urine Not Detected (NotDetected); Oxycodone Screen, Urine Not Detected (NotDetected); Phencyclidine Screen,Urine Not Detected (NotDetected); Tricyclic Antidepressant,Urine Not Detected (NotDetected); Urn Cannabinoid Scrn Not Detected (NotDetected)
[2018-06-11] MEDS ORDERED: SODIUM CHLORIDE 0.9% 500 ML IV ONE (21:59)
[2018-06-11] MEDS ORDERED: LORazepam 2 MG/ML INJ IV STA (21:59)
[2018-06-11] MEDS ORDERED: SODIUM CHLORIDE 0.9% 1,000 ML IV SCH (22:00)
[2018-06-12 04:08] VITALS: BP 95/62; PULSE 87; RESP 18; TEMP 98
[2018-06-12] MEDS ORDERED: LORazepam 2 MG/ML INJ IV STA (05:10)
== END 2018-06-12 09:03 ==
LOC: EC 19:30
DX: N18.9 Chronic kidney disease, unspecified (principal); F31.9 Bipolar disorder, unspecified; R45.1 Restlessness and agitation; E78.5 Hyperlipidemia, unspecified; E07.9 Disorder of thyroid, unspecified; F20.9 Schizophrenia, unspecified; F41.9 Anxiety disorder, unspecified; F17.200 Nicotine dependence, unspecified, uncomplicated; Z79.899 Other long term (current) drug therapy; Z88.8 Allergy status to other drugs, medicaments and biological substances
CPT/HCPCS: 82075; 36415; 80048; 85025; 81003; 80306; 80320; 99285; 96374; 96376; 96361 ×11; J2060 ×2

== ENCOUNTER 2018-11-12 20:10 | Inpatient (IN) | payer MEDICARE ==
[2018-11-12] MEDS ORDERED: LORazepam 2 MG/ML INJ IV STA ×2 (20:47)
[2018-11-12] MEDS ORDERED: diphenhydrAMINE 50 MG/ML 1 ML VIAL IVP STA (20:47)
--- NOTE | 2018-11-12 20:50 | ED ---
Psych HPI - General Chief Complaint: Psychiatric Symptoms Stated Complaint: [place] Time Seen by Provider: 11/12/18 20:25 Source: family, police, RN notes reviewed, old records reviewed Mode of arrival: ambulatory - History of Present Illness Initial Comments: This is a 68-year-old female patient presents today for evaluation regards to psychiatric illness. Patient's of poor strain secondary severe manic episode. Patient's brought in by caregiver, patient has not slept for 2 days not taking medications. Caregiver denies any illegal drug use MD Complaint: altered mental status -: days(s) Associated Psychiatric Symptoms: racing thoughts, auditory hallucinations, visual hallucinations, delusions History of same: Yes Quality: constant, getting worse Improves With: medication Worsens With: none Context: not taking psychiatric medications Associated Symptoms: denies other symptoms Treatments Prior to Arrival: chemical restraints - Related Data Home Medications Medication Instructions Recorded Confirmed Atorvastatin [Lipitor] 10 mg PO HS 06/11/18 11/12/18 Haloperidol Decanoate [Haldol D] 50 mg IM Q28D 11/12/18 11/12/18 Levothyroxine Sodium [Synthroid] 150 mg PO DAILY 11/12/18 11/12/18 OLANZapine 20 mg PO HS 11/12/18 11/12/18 lamoTRIgine [LaMICtal] 200 mg PO DAILY 11/12/18 11/12/18 Previous Rx's Medication Instructions Recorded Raloxifene [Evista] 60 mg PO DAILY #30 tab 05/30/18 Allergies Allergy/AdvReac Type Severity Reaction Status Date / Time Phenothiazines Allergy Unknown Verified 11/12/18 20:21 Review of Systems ROS Statement: Those systems with pertinent positive or pertinent negative responses have been documented in the HPI. ROS Other: All systems not noted in ROS Statement are negative. Past Medical History Past Medical History: COPD, GERD/Reflux, Hyperlipidemia, Musculoskeletal Disorder, Thyroid Disorder Additional Past Medical History / Comment(s): brittle teeth can not eat anything hard needs to have soft diet chronic kidney disease; Ostopenia, son stted pt was told to stop taking thyroid meds. History of Any Multi-Drug Resistant Organisms: None Reported Past Surgical History: Adenoidectomy, Breast Surgery, Section, Tonsillectomy Additional Past Surgical History / Comment(s): biopsy left breast-benign,c section, rhinoplasty Past Anesthesia/Blood Transfusion Reactions: No Reported Reaction Additional Past Anesthesia/Blood Transfusion Reaction / Comment(s): DOES NOT EVER WANT A BLOOD TRANSFUSION Past Psychological History: Anxiety, Bipolar, Schizophrenia Smoking Status: Current every day smoker Past Alcohol Use History: None Reported Past Drug Use History: None Reported - Past Family History Father History Unknown: Yes Family Medical History: Myocardial Infarction ([place]) Brother(s) Family Medical History: Cancer Additional Family Medical History / Comment(s): Brother had testicular cancer. General Exam Limitations: altered mental status General appearance: alert, anxious Head exam: Present: atraumatic, normocephalic, normal inspection Eye exam: Present: normal appearance, PERRL, EOMI. Absent: scleral icterus, conjunctival injection, periorbital swelling ENT exam: Present: normal exam, mucous membranes moist Neck exam: Present: normal inspection. Absent: tenderness, meningismus, lymphadenopathy Respiratory exam: Present: normal lung sounds bilaterally. Absent: respiratory distress, wheezes, rales, rhonchi, stridor Cardiovascular Exam: Present: normal rhythm, tachycardia, normal heart sounds. Absent: systolic murmur, diastolic murmur, rubs, gallop, clicks GI/Abdominal exam: Present: soft, normal bowel sounds. Absent: distended, tenderness, guarding, rebound, rigid Extremities exam: Present: normal inspection, full ROM, normal capillary refill. Absent: tenderness, pedal edema, joint swelling, calf tenderness Back exam: Present: normal inspection Neurological exam: Present: alert, oriented X3, CN II-XII intact Psychiatric exam: Present: normal affect, normal mood Skin exam: Present: warm, dry, intact, normal color. Absent: rash Course Vital Signs 11/12/18 11/12/18 20:17 22:40 Temperature 95.8 F L 96.8 F L Pulse Rate 142 H 89 Respiratory 19 15 Rate Blood Pressure 160/99 109/71 O2 Sat by Pulse 99 97 Oximetry - Reevaluation(s) Reevaluation #1: 11/12/18 23:37 Patient's medically clear for psychiatric evaluation Medical Decision Making - Medical Decision Making 68 female was seen and evaluated with psychiatry, patient will be placed inpatient psychiatric treatment - Lab Data Result diagrams: 11/12/18 21:00 11/12/18 21:00 Lab Results 11/12/18 11/12/18 Range/Units 21:00 21:00 WBC 8.7 (3.8-10.6) k/uL RBC 4.83 (3.80-5.40) m/uL Hgb 13.1 (11.4-16.0) gm/dL Hct 41.0 (34.0-46.0) % MCV 84.9 (80.0-100.0) fL MCH 27.0 (25.0-35.0) pg MCHC 31.8 (31.0-37.0) g/dL RDW 14.8 (11.5-15.5) % Plt Count 314 (150-450) k/uL Neutrophils % 65 % Lymphocytes % 23 % Monocytes % 7 % Eosinophils % 3 % Basophils % 0 % Neutrophils # 5.7 (1.3-7.7) k/uL Lymphocytes # 2.0 (1.0-4.8) k/uL Monocytes # 0.6 (0-1.0) k/uL Eosinophils # 0.2 (0-0.7) k/uL Basophils # 0.0 (0-0.2) k/uL Sodium 139 (137-145) mmol/L Potassium 4.7 (3.5-5.1) mmol/L Chloride 106 (98-107) mmol/L Carbon Dioxide 24 (22-30) mmol/L Anion Gap 9 mmol/L BUN 25 H (7-17) mg/dL Creatinine 1.68 H (0.52-1.04) mg/dL Est GFR (CKD-EPI)AfAm 36 (>60 ml/min/1.73 sqM) Est GFR (CKD-EPI)NonAf 31 (>60 ml/min/1.73 sqM) Glucose 163 H (74-99) mg/dL Calcium 9.5 (8.4-10.2) mg/dL Phosphorus 4.2 (2.5-4.5) mg/dL Magnesium 2.2 (1.6-2.3) mg/dL Salicylates <1.0 mg/dL Acetaminophen <10.0 ug/mL Serum Alcohol <10 mg/dL Disposition Clinical Impression: Acute psychosis, Schizophrenia Disposition: TRANSFER TO PSYCH HOSP/UNIT Condition: Fair Is patient prescribed a controlled substance at d/c from ED?: No Referrals: None,Stated [Primary Care Provider] - 1-2 days
[2018-11-12 21:21] LABS: Basophils % (A) 0 %; Eosinophils # (A) 0.2 k/uL (0-0.7); Eosinophils % (A) 3 %; HGB 13.1 gm/dL (11.4-16.0); Lymphocytes % (A) 23 %; MCHC 31.8 g/dL (31.0-37.0); MCV 84.9 fL (80.0-100.0); Mean Platelet Volume 6.7; Monocytes # (A) 0.6 k/uL (0-1.0); Monocytes % (A) 7 %; Neutrophils # (A) 5.7 k/uL (1.3-7.7); Neutrophils % (A) 65 %; Platelet Count 314 k/uL (150-450); RBC 4.83 m/uL (3.80-5.40); RDW 14.8 % (11.5-15.5); WBC 8.7 k/uL (3.8-10.6)
[2018-11-12 21:31] LABS: Acetaminophen <10.0 ug/mL; Alcohol <10 mg/dL; Anion Gap 9 mmol/L; Blood Urea Nitrogen 25 mg/dL (7-17); Calcium 9.5 mg/dL (8.4-10.2); Carbon Dioxide 24 mmol/L (22-30); Chloride 106 mmol/L (98-107); Glucose 163 mg/dL (74-99); Magnesium 2.2 mg/dL (1.6-2.3); Phosphorus 4.2 mg/dL (2.5-4.5); Potassium 4.7 mmol/L (3.5-5.1); Salicylate <1.0 mg/dL; Sodium 139 mmol/L (137-145)
[2018-11-12 23:46] LABS: Appearance,Urine Clear (Clear); Bilirubin,Urine Negative (Negative); Blood,Urine Negative (Negative); Color,Urine Light Yellow; Glucose,Urine (UA) Negative (Negative); Ketones,Urine Negative (Negative); Leukocyte Esterase,Urine Negative (Negative); Nitrite,Urine Negative (Negative); PH, Urine 6.5 (5.0-8.0); Protein,Urine Negative (Negative); Specific Gravity,Urine 1.005 (1.001-1.035); Urobilinogen,Urine <2.0 mg/dL (<2.0)
[2018-11-13 00:08] LABS: Amphetamine Screen,Urine Not Detected (NotDetected); Barbiturate Screen,Urine Not Detected (NotDetected); Benzodiazepines Screen,Urine Not Detected (NotDetected); Cocaine Screen,Urine Not Detected (NotDetected); Methadone Screen, Urine Not Detected (NotDetected); Opiate Screen,Urine Not Detected (NotDetected); Oxycodone Screen, Urine Not Detected (NotDetected); Phencyclidine Screen,Urine Not Detected (NotDetected); Tricyclic Antidepressant,Urine Not Detected (NotDetected); Urn Cannabinoid Scrn Not Detected (NotDetected)
[2018-11-13] MEDS ORDERED: NICOTINE 7MG/24HR PATCH TRANSDERM STA (11:40)
[2018-11-13] MEDS ORDERED: LORazepam 2 MG/ML INJ IV STA (11:41)
[2018-11-13] MEDS ORDERED: HALOPERIDOL 5 MG TAB PO PRN (15:27)
[2018-11-13] MEDS ORDERED: ZIPRASIDONE 20 MG VIAL IM PRN (15:28)
[2018-11-13] MEDS ORDERED: MAG HYDROX/AL HYDROX/SIMETH 30 ML CUP PO PRN (15:28)
[2018-11-13] MEDS ORDERED: MAGNESIUM HYDROXIDE 2,400 MG/10 ML CUP PO PRN (15:28)
[2018-11-13] MEDS: LEVOTHYROXINE 75 MCG TAB PO SCH (15:36)
[2018-11-13] MEDS: RALOXIFENE 60 MG TAB PO SCH (15:36)
[2018-11-13] MEDS ORDERED: OLANZapine 10 MG TAB PO SCH (21:00)
[2018-11-14 04:01] LABS: Cholesterol 164 mg/dL (<200); HDL Cholesterol 73 mg/dL (40-60); LDL Cholesterol,Calculated 74 mg/dL (0-99); Triglycerides 86 mg/dL (<150)
[2018-11-14] MEDS: LEVOTHYROXINE 75 MCG TAB PO SCH (06:32)
[2018-11-14] MEDS: RALOXIFENE 60 MG TAB PO SCH (07:59)
[2018-11-14] MEDS: lamoTRIgine 100 MG TAB PO SCH (07:59)
[2018-11-14] MEDS: NICOTINE 7MG/24HR PATCH TRANSDERM SCH (08:03)
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
[2018-11-14 15:31] LABS: Hemoglobin A1C 5.9 % (4.0-6.0)
[2018-11-14] MEDS: HALOPERIDOL 5 MG TAB PO SCH ×2 (15:35→21:15)
[2018-11-14] MEDS: ATORVASTATIN 10 MG TAB PO SCH ×2 (20:24→21:15)
[2018-11-14] MEDS: ACETAMINOPHEN TAB 325 MG TAB PO PRN (21:16)
[2018-11-15] MEDS: LEVOTHYROXINE 75 MCG TAB PO SCH (06:30)
[2018-11-15] MEDS: lamoTRIgine 100 MG TAB PO SCH (07:58)
[2018-11-15] MEDS: HALOPERIDOL 5 MG TAB PO SCH ×3 (07:58→20:41)
[2018-11-15] MEDS: RALOXIFENE 60 MG TAB PO SCH (07:59)
[2018-11-15] MEDS: NICOTINE 7MG/24HR PATCH TRANSDERM SCH (07:59)
[2018-11-15] MEDS: ACETAMINOPHEN TAB 325 MG TAB PO PRN ×2 (09:38→16:23)
--- NOTE | 2018-11-15 12:33 | P.PN ---
Progress Note - Text Progress Note Date: 11/15/18 Interval history: Patient is seen in cross coverage today. She makes reference to having had side effects on Zyprexa. She seems to insist that she was offered Zyprexa today. It is not on her current med list. She describes feeling tired. Mental status exam: She is alert and cooperative with coming to the interview room. Her mood she describes as "tired." She denies any thoughts of harm to self or others. She shows some thought disorganization. She makes reference to my pager and asks if it is recording anything. She does not show any agitation. : Patient will be maintained on current psychotropic medication regimen. We'll continue to monitor for any medication side effects and monitor for ongoing response to treatment. We'll continue to cover this patient through the weekend.
[2018-11-15] MEDS: ATORVASTATIN 10 MG TAB PO SCH (20:41)
--- NOTE | 2018-11-15 21:14 | PN ---
PROGRESS NOTE CHIEF COMPLAINT: Schizoaffective disorder. HISTORY OF PRESENT ILLNESS: Another of many admissions for this 68-year-old schizophrenic female with manic depressive illness. She has been in the unit multiple times in the past. She was transferred to an inpatient psych service earlier this year. After that, she fell and broke her right hip, her femur and was hospitalized for extended period time for that. She was apparently brought in by her family after her behavior became bizarre. I do not know if she has been seeing a psychiatrist or taking medications. REVIEW OF SYSTEMS: She denies any headaches, problems with vision or hearing, shortness of breath, chest pain, abdominal pain, etc. Past medical history, family history, personal and social history can all be found in her recent and current admitting and discharge summaries. PHYSICAL EXAMINATION: Blood pressure is 142/86 with a pulse of 90, respirations of 27, and she is afebrile. General, she appeared to be slightly pale, asthenic and somewhat agitated and hyperactive. Head, ears, eyes, nose, mouth, throat were normal and neck veins not distended. Chest is clear. Cardiac exam demonstrated normal sinus rhythm. Remainder of her exam is unremarkable. IMPRESSION: 1. Schizophrenia. 2. Bipolar depression. 3. Recent fracture of the right hip or femur. RECOMMENDATION: None at this time. MMODL / IJN: [id number] /
[2018-11-16] MEDS: LEVOTHYROXINE 75 MCG TAB PO SCH (05:50)
[2018-11-16] MEDS: ACETAMINOPHEN TAB 325 MG TAB PO PRN ×2 (05:54→20:06)
[2018-11-16] MEDS: NICOTINE 7MG/24HR PATCH TRANSDERM SCH (08:23)
[2018-11-16] MEDS: lamoTRIgine 100 MG TAB PO SCH ×2 (08:23→08:27)
[2018-11-16] MEDS: RALOXIFENE 60 MG TAB PO SCH (08:23)
[2018-11-16] MEDS: HALOPERIDOL 5 MG TAB PO SCH ×3 (08:24→20:06)
--- NOTE | 2018-11-16 14:26 | P.PN ---
Progress Note - Text Progress Note Date: 11/16/18 Interval history: Patient is seen in [facility] today. She is seen in the hallway and is not agreeable to come to the interview room today. In the hallway she makes reference to the staff needing to be treated for diseases. She inquires with me regarding if I am the head of [facility]. She still seems insistent that she is being prescribed Zyprexa. Mental status exam: She is not cooperative with coming to the interview room today. She relays that she talked with me yesterday. She makes reference to the staff needing to be tested for diseases. She asks me if I am the head of [facility]. She continues to be insistent that she is being prescribed Zyprexa. I offered to go over her medication list with her which she refuses. She does not make any reference to thoughts of harm to self or others. Plan: Patient will be maintained on current psychotropic medication regimen. We 'll continue to monitor for any medication side effects and monitor her ongoing response to treatment.
[2018-11-16] MEDS: LORazepam 1 MG TAB PO PRN (15:45)
[2018-11-16] MEDS: ATORVASTATIN 10 MG TAB PO SCH (20:06)
[2018-11-17] MEDS: LEVOTHYROXINE 75 MCG TAB PO SCH (05:33)
[2018-11-17] MEDS: NICOTINE 7MG/24HR PATCH TRANSDERM SCH (09:03)
[2018-11-17] MEDS: RALOXIFENE 60 MG TAB PO SCH (09:03)
[2018-11-17] MEDS: lamoTRIgine 100 MG TAB PO SCH ×2 (09:03→09:32)
[2018-11-17] MEDS: HALOPERIDOL 5 MG TAB PO SCH ×3 (09:03→21:26)
[2018-11-17] MEDS: ACETAMINOPHEN TAB 325 MG TAB PO PRN (09:30)
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
[2018-11-17] MEDS ORDERED: HALOPERIDOL 5 MG TAB PO ONE (13:30)
[2018-11-17] MEDS: ATORVASTATIN 10 MG TAB PO SCH (21:26)
[2018-11-18] MEDS: LEVOTHYROXINE 75 MCG TAB PO SCH (06:42)
[2018-11-18] MEDS: NICOTINE 7MG/24HR PATCH TRANSDERM SCH (09:26)
[2018-11-18] MEDS: RALOXIFENE 60 MG TAB PO SCH (09:27)
[2018-11-18] MEDS: HALOPERIDOL 5 MG TAB PO SCH ×3 (09:28→21:22)
[2018-11-18] MEDS: lamoTRIgine 100 MG TAB PO SCH ×2 (09:28→09:32)
[2018-11-18] MEDS: ACETAMINOPHEN TAB 325 MG TAB PO PRN ×2 (09:30→16:02)
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
[2018-11-18] MEDS: LORazepam 1 MG TAB PO PRN ×2 (16:03→18:32)
[2018-11-18] MEDS: ATORVASTATIN 10 MG TAB PO SCH (21:23)
[2018-11-18] MEDS: TOPIRAMATE 25 MG TAB PO SCH (21:23)
[2018-11-19] MEDS: LORazepam 1 MG TAB PO PRN ×2 (04:31→04:34)
[2018-11-19] MEDS: LEVOTHYROXINE 75 MCG TAB PO SCH (04:34)
[2018-11-19] MEDS: ACETAMINOPHEN TAB 325 MG TAB PO PRN ×2 (07:12→21:00)
[2018-11-19] MEDS: HALOPERIDOL 5 MG TAB PO SCH ×4 (08:07→21:00)
[2018-11-19] MEDS: NICOTINE 7MG/24HR PATCH TRANSDERM SCH ×2 (08:08→08:37)
[2018-11-19] MEDS: RALOXIFENE 60 MG TAB PO SCH (08:08)
[2018-11-19] MEDS: TOPIRAMATE 25 MG TAB PO SCH ×2 (08:08→21:00)
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
[2018-11-19] MEDS: ATORVASTATIN 10 MG TAB PO SCH (21:00)
[2018-11-20] MEDS: LEVOTHYROXINE 75 MCG TAB PO SCH (05:38)
[2018-11-20] MEDS: TOPIRAMATE 25 MG TAB PO SCH (08:43)
[2018-11-20] MEDS: HALOPERIDOL 5 MG TAB PO SCH ×4 (08:43→20:17)
[2018-11-20] MEDS: RALOXIFENE 60 MG TAB PO SCH (08:43)
[2018-11-20] MEDS: NICOTINE 7MG/24HR PATCH TRANSDERM SCH (08:43)
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
[2018-11-20] MEDS ORDERED: diphenhydrAMINE 25 MG CAP ONE (12:24)
[2018-11-20] MEDS: diphenhydrAMINE 25 MG CAP PO SCH ×2 (12:34→20:17)
[2018-11-20] MEDS: ACETAMINOPHEN TAB 325 MG TAB PO PRN (17:33)
[2018-11-20] MEDS: TOPIRAMATE 100 MG TAB PO SCH (20:17)
[2018-11-20] MEDS: ATORVASTATIN 10 MG TAB PO SCH (20:17)
[2018-11-20] MEDS: LORazepam 1 MG TAB PO PRN (20:18)
[2018-11-21] MEDS: LEVOTHYROXINE 75 MCG TAB PO SCH (06:36)
[2018-11-21] MEDS: RALOXIFENE 60 MG TAB PO SCH (09:18)
[2018-11-21] MEDS: TOPIRAMATE 100 MG TAB PO SCH ×2 (09:18→21:14)
[2018-11-21] MEDS: HALOPERIDOL 5 MG TAB PO SCH ×4 (09:18→21:15)
[2018-11-21] MEDS: diphenhydrAMINE 25 MG CAP PO SCH ×2 (09:18→21:13)
[2018-11-21] MEDS: NICOTINE 7MG/24HR PATCH TRANSDERM SCH (09:19)
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
[2018-11-21] MEDS: ACETAMINOPHEN TAB 325 MG TAB PO PRN (21:12)
[2018-11-21] MEDS: ATORVASTATIN 10 MG TAB PO SCH (21:13)
[2018-11-22] MEDS: LEVOTHYROXINE 75 MCG TAB PO SCH (06:32)
[2018-11-22] MEDS: HALOPERIDOL 5 MG TAB PO SCH ×4 (08:06→22:02)
[2018-11-22] MEDS: diphenhydrAMINE 25 MG CAP PO SCH ×2 (08:06→20:37)
[2018-11-22] MEDS: RALOXIFENE 60 MG TAB PO SCH (08:07)
[2018-11-22] MEDS: NICOTINE 7MG/24HR PATCH TRANSDERM SCH (08:07)
[2018-11-22] MEDS: TOPIRAMATE 100 MG TAB PO SCH ×2 (08:08→20:37)
--- NOTE | 2018-11-22 19:34 | P.PN ---
Progress Note - Text Progress Note Date: 11/22/18 Found her very angry and irritable. Was not cooperative. Getting agitated easy over little stuff MSE : He is alert, awake and oriented in all spheres. Irritable and anxious. Fair eye contact. Speech loud and pressured. Mood irritable and depressed with congruent affect. Denies any suicidal or homicidal ideation. Paranoid delusional. Has no auditory/Visual hallucinations. Insight and judgment impaired. Bipolar Disorder with psychoses Will continue to adjust medications accordingly
[2018-11-22] MEDS: BENZTROPINE MESYLATE 1 MG TAB PO PRN (20:37)
[2018-11-22] MEDS: ATORVASTATIN 10 MG TAB PO SCH (20:37)
[2018-11-23] MEDS: LORazepam 1 MG TAB PO PRN ×2 (06:50→20:00)
[2018-11-23] MEDS: LEVOTHYROXINE 75 MCG TAB PO SCH (06:50)
[2018-11-23] MEDS: NICOTINE 7MG/24HR PATCH TRANSDERM SCH (09:47)
[2018-11-23] MEDS: HALOPERIDOL 5 MG TAB PO SCH (09:47)
[2018-11-23] MEDS: diphenhydrAMINE 25 MG CAP PO SCH ×2 (09:47→19:56)
[2018-11-23] MEDS: TOPIRAMATE 100 MG TAB PO SCH ×2 (09:48→19:56)
[2018-11-23] MEDS: RALOXIFENE 60 MG TAB PO SCH ×2 (09:48→15:30)
[2018-11-23] MEDS ORDERED: HALOPERIDOL DECANOATE 50 MG/ML 1 ML VIAL IM STA (09:53)
--- NOTE | 2018-11-23 12:18 | P.PN ---
Progress Note - Text Progress Note Date: 11/23/18 Found her very angry and irritable. Was not cooperative. Getting agitated easy over little stuff MSE : He is alert, awake and oriented in all spheres. Irritable and anxious. Fair eye contact. Speech loud and pressured. Mood irritable and depressed with congruent affect. Denies any suicidal or homicidal ideation. Paranoid delusional. Has no auditory/Visual hallucinations. Insight and judgment impaired. Bipolar Disorder with psychoses Will continue to adjust medications accordingly
[2018-11-23] MEDS: ATORVASTATIN 10 MG TAB PO SCH (19:56)
[2018-11-23] MEDS: ACETAMINOPHEN TAB 325 MG TAB PO PRN (19:58)
[2018-11-24] MEDS: LEVOTHYROXINE 75 MCG TAB PO SCH (05:27)
[2018-11-24] MEDS: LORazepam 1 MG TAB PO PRN ×2 (05:28→21:18)
[2018-11-24] MEDS: ACETAMINOPHEN TAB 325 MG TAB PO PRN ×2 (05:28→21:18)
[2018-11-24] MEDS: NICOTINE 7MG/24HR PATCH TRANSDERM SCH (09:17)
[2018-11-24] MEDS: diphenhydrAMINE 25 MG CAP PO SCH ×2 (09:17→21:11)
[2018-11-24] MEDS: RALOXIFENE 60 MG TAB PO SCH (09:17)
[2018-11-24] MEDS: TOPIRAMATE 100 MG TAB PO SCH ×3 (09:17→21:17)
--- NOTE | 2018-11-24 17:21 | P.PN ---
Progress Note - Text Progress Note Date: 11/24/18 Found her very still very irritable. Was not cooperative. Getting agitated easy over little stuff MSE : He is alert, awake and oriented in all spheres. Irritable and anxious. Fair eye contact. Speech loud and pressured. Mood irritable and depressed with congruent affect. Denies any suicidal or homicidal ideation. Paranoid delusional. Has no auditory/Visual hallucinations. Insight and judgment impaired. Bipolar Disorder with psychoses Will continue to adjust medications accordingly
[2018-11-24] MEDS: ATORVASTATIN 10 MG TAB PO SCH (21:11)
[2018-11-25] MEDS: LEVOTHYROXINE 75 MCG TAB PO SCH (06:37)
[2018-11-25] MEDS: LORazepam 1 MG TAB PO PRN (06:39)
[2018-11-25] MEDS: RALOXIFENE 60 MG TAB PO SCH ×2 (10:20→13:00)
[2018-11-25] MEDS: diphenhydrAMINE 25 MG CAP PO SCH ×3 (10:20→21:58)
[2018-11-25] MEDS: NICOTINE 7MG/24HR PATCH TRANSDERM SCH (10:20)
[2018-11-25] MEDS: TOPIRAMATE 100 MG TAB PO SCH ×2 (10:21→21:57)
--- NOTE | 2018-11-25 12:11 | P.PN ---
Progress Note - Text Progress Note Date: 11/25/18 Found her irritable and visibly upset as soon as I entered room. Was not cooperative. Getting agitated easy over little stuff MSE : He is alert, awake and oriented in all spheres. Irritable and anxious. Fair eye contact. Speech loud and pressured. Mood irritable and depressed with congruent affect. Denies any suicidal or homicidal ideation. Paranoid delusional. Has no auditory/Visual hallucinations. Insight and judgment impaired. Bipolar Disorder with psychoses Will continue to adjust medications accordingly
[2018-11-25] MEDS: ACETAMINOPHEN TAB 325 MG TAB PO PRN (16:52)
[2018-11-25] MEDS: ATORVASTATIN 10 MG TAB PO SCH (21:57)
[2018-11-26] MEDS: LEVOTHYROXINE 75 MCG TAB PO SCH (06:17)
[2018-11-26] MEDS: TOPIRAMATE 100 MG TAB PO SCH ×2 (10:26→20:27)
[2018-11-26] MEDS: diphenhydrAMINE 25 MG CAP PO SCH ×2 (10:26→20:22)
[2018-11-26] MEDS: RALOXIFENE 60 MG TAB PO SCH (10:26)
[2018-11-26] MEDS ORDERED: HALOPERIDOL DECANOATE 50 MG/ML 1 ML VIAL IM STA (11:46)
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
[2018-11-26] MEDS: ACETAMINOPHEN TAB 325 MG TAB PO PRN (16:41)
[2018-11-26] MEDS: ATORVASTATIN 10 MG TAB PO SCH (20:23)
[2018-11-27] MEDS: LEVOTHYROXINE 75 MCG TAB PO SCH (06:08)
[2018-11-27] MEDS: RALOXIFENE 60 MG TAB PO SCH (08:04)
[2018-11-27] MEDS: ACETAMINOPHEN TAB 325 MG TAB PO PRN ×2 (08:05→17:08)
[2018-11-27] MEDS: diphenhydrAMINE 25 MG CAP PO SCH ×2 (08:08→20:36)
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
[2018-11-27] MEDS: ATORVASTATIN 10 MG TAB PO SCH (20:36)
[2018-11-27] MEDS: TOPIRAMATE 100 MG TAB PO SCH (20:36)
[2018-11-28] MEDS: ACETAMINOPHEN TAB 325 MG TAB PO PRN ×2 (04:01→20:04)
[2018-11-28] MEDS: LEVOTHYROXINE 75 MCG TAB PO SCH (05:01)
[2018-11-28] MEDS: diphenhydrAMINE 25 MG CAP PO SCH ×2 (08:25→20:04)
[2018-11-28] MEDS: RALOXIFENE 60 MG TAB PO SCH (08:25)
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
[2018-11-28] MEDS: TOPIRAMATE 100 MG TAB PO SCH (20:04)
[2018-11-28] MEDS: ATORVASTATIN 10 MG TAB PO SCH (20:04)
[2018-11-29] MEDS: LEVOTHYROXINE 75 MCG TAB PO SCH (06:31)
[2018-11-29] MEDS: diphenhydrAMINE 25 MG CAP PO SCH ×2 (07:39→22:16)
[2018-11-29] MEDS: RALOXIFENE 60 MG TAB PO SCH (07:39)
[2018-11-29] MEDS: ACETAMINOPHEN TAB 325 MG TAB PO PRN ×2 (07:42→22:17)
[2018-11-29] MEDS ORDERED: QUEtiapine 200 MG TAB PO STA (10:03)
[2018-11-29] MEDS: ATORVASTATIN 10 MG TAB PO SCH (22:16)
--- NOTE | 2018-11-29 22:16 | PN ---
DATE OF SERVICE: 11/29/2018 PROGRESS NOTE CHIEF COMPLAINT: The patient was manic, delusional and disorganized in thoughts and behavior. INTERVAL HISTORY: The patient has been doing fair. She was quite active last evening. She roams around the unit. She slept 5.5 hours last night. Today she has been up. She continues to be quite active where she walks about the unit. She will approach various people and will make an effort to engage in some discussion. Her thoughts are quite disorganized. She has been attending groups though also in groups it is noted that she is not able to focus. She has poor boundaries. She is hyperverbal and intrusive. She will pace. The behavior noted in groups is identical to what is seen when she is out in the day area. She came in to my office and many times knocking on the door or walking in the office asking 1 question or another mostly her mood has been elevated, though at times she will be irritable, angry, and distressed. She only follows redirection to a minimal extent. She appears to tolerate her psychotropic medications. MENTAL STATUS: Patient was restless and hyperactive. She was also hyperverbal with pressured speech, flight of ideas, loose association. Her thoughts were disorganized and for the most part incoherent. She had an intense affect. Her mood was primarily elevated. She continues with delusional and bizarre thoughts. ASSESSMENT: I will continue the current diagnosis and general treatment plan. The patient did receive Haldol Decanoate 50 mg and is due for a followup dose 12/03/2018. She has been resistant to being on any other psychotropic medications. Her creatinine is elevated at 1.68, which restricts use of lithium. There might be consideration for a 2nd anti manic medication though so far at this point, the patient has resisted taking any other medication. We might consider Tegretol as an alternative as well as giving her an additional dose of Haldol Decanoate earlier than the scheduled day. We will continue to focus on stabilization and discharge planning. MMODL / GORDONN: [id number] / RUPERT
[2018-11-29] MEDS: TOPIRAMATE 100 MG TAB PO SCH (22:18)
[2018-11-29] MEDS: QUEtiapine 100 MG TAB PO SCH (22:19)
[2018-11-29] MEDS: BENZTROPINE MESYLATE 1 MG TAB PO PRN (23:03)
[2018-11-30] MEDS: LORazepam 1 MG TAB PO PRN (01:38)
[2018-11-30] MEDS: LEVOTHYROXINE 75 MCG TAB PO SCH (07:54)
[2018-11-30] MEDS: RALOXIFENE 60 MG TAB PO SCH (07:55)
[2018-11-30] MEDS: QUEtiapine 100 MG TAB PO SCH ×2 (07:55→20:32)
[2018-11-30] MEDS: diphenhydrAMINE 25 MG CAP PO SCH ×2 (07:55→20:32)
[2018-11-30] MEDS: BENZTROPINE MESYLATE 1 MG TAB PO PRN (07:57)
--- NOTE | 2018-11-30 14:18 | PN ---
PROGRESS NOTE DATE OF SERVICE: 11/30/2018. CHIEF COMPLAINT: The patient was manic, delusional and disorganized in thoughts and behavior. INTERVAL HISTORY: The patient has been doing fair. She has been started on Seroquel. She received 300 mg last night. She had some restlessness later in the evening. At about 1:30 in the morning, received p.r.n. Ativan. She was able to sleep after that. Overall she seems seem to have a better night's sleep, but last night today she has been up. She comes out in the day area. She is calmer overall. She has been able to interact with staff some of the time in a more appropriate manner. Still her thoughts can be disorganized and bizarre. She has less hyperactivity. She is better able to follow redirection and staff support. She does not have specific complaints today. She had been declining to get an EKG done, though this morning said she will consent to an EKG. She has a slight slurring of speech, which may relate to her morning dose of Seroquel. Other than that, she seems to tolerate her medications well. MENTAL STATUS: Patient was somewhat restless though she moves in a much slower manner than she had been yesterday. Some of the time her thoughts are clear and other times she makes disconnected or disorganized statements. Her mood is elevated. She is less intense in her manner and she continues to be moderately intrusive. Her thoughts for the most part seemed to be reality based. ASSESSMENT: I will continue the current diagnosis and treatment plan. Patient will continue on Haldol Decanoate. She will be receiving a followup 50 mg dose 12/03/2018. At this point, she will continue Seroquel 300 mg twice a day. An EKG is pending to assess for risks related to heart rhythm based on the combination of Haldol and Seroquel. We will continue to focus on stabilization and discharge planning. MMODL / IJN: [id number] /
[2018-11-30] MEDS: ATORVASTATIN 10 MG TAB PO SCH (20:32)
[2018-11-30] MEDS: TOPIRAMATE 100 MG TAB PO SCH (20:32)
[2018-11-30] MEDS: ACETAMINOPHEN TAB 325 MG TAB PO PRN (20:34)
[2018-12-01] MEDS: LEVOTHYROXINE 75 MCG TAB PO SCH ×2 (07:03→07:36)
[2018-12-01] MEDS: QUEtiapine 100 MG TAB PO SCH ×3 (07:36→21:21)
[2018-12-01] MEDS: diphenhydrAMINE 25 MG CAP PO SCH ×2 (07:36→21:21)
[2018-12-01] MEDS: ACETAMINOPHEN TAB 325 MG TAB PO PRN ×2 (07:36→21:31)
[2018-12-01] MEDS: RALOXIFENE 60 MG TAB PO SCH (07:36)
[2018-12-01] MEDS: ATORVASTATIN 10 MG TAB PO SCH (21:21)
[2018-12-01] MEDS: TOPIRAMATE 100 MG TAB PO SCH (21:30)
[2018-12-02] MEDS: QUEtiapine 100 MG TAB PO SCH ×3 (09:02→21:21)
[2018-12-02] MEDS: RALOXIFENE 60 MG TAB PO SCH (09:02)
[2018-12-02] MEDS: diphenhydrAMINE 25 MG CAP PO SCH (09:02)
[2018-12-02] MEDS: LEVOTHYROXINE 75 MCG TAB PO SCH (09:02)
--- NOTE | 2018-12-02 17:56 | PN ---
PROGRESS NOTE DATE OF SERVICE: 12/01/2018 CHIEF COMPLAINT: The patient was manic, delusional and disorganized in her thoughts and behavior. INTERVAL HISTORY: Patient has been doing fair. She continues with significant manic symptoms. Last evening she was quite active and at times agitated. She had difficulty falling asleep. Staff documented that as of 5 this morning she had slept 3 hours. Today she has been up. She is constantly walking about. She will talk to herself. She will talk to people that walk by her. She has come into my office multiple times throughout the day. Sometimes she can be quite loud and demanding that she needs to be discharged today. At other times she will with whisper telling me not to be on the [employer] computer because of people monitoring her. She is mostly loud and intense. She is hyperactive much of the time. Her thoughts are disorganized and at times delusional. She has been taking medications for the most part without much resistance. When we talked about medication options such as Tegretol or Zyprexa, the patient adamantly refuses to consider that. I had a telephone conversation with the patient's son. He indicates that when she was on 30 mg of Zyprexa she was doing fairly well. She tended to have a loss of motivation and drive. On the other hand, her mentation was quite clear. She functioned appropriately. When the dose was reduced to 20 mg she started showing manic symptoms which then only escalated. She appears to tolerate her psychotropic medications. MENTAL STATUS: Patient was intense. She was hyperverbal and hyperactive. She talked in a loud voice. Her thoughts were disorganized. At times she could be demanding. Her affect was intense. Her mood fluctuated between euphoria and anger. She exhibited paranoid delusions. There were some behaviors suggestive of her responding to internal stimuli. ASSESSMENT: I will continue the current diagnosis and treatment plan. Her Seroquel has gone up to 300 mg 3 times a day. Her QT/QTc interval is 380/457 which would be in the borderline range in females for prolonged QT. We will need to continue to monitor vitals. I would repeat the EKG once she has been on Seroquel for 2 or 3 days and is at a steady state level. The combination of Haldol and Seroquel do cause some increased risk in this regard. Noted that I had a discussion regarding ECT with the patient's son who was willing to consider that option as well. When I tried to talk with the patient about it, she was very intense and angry about that idea even being suggested. I will continue to focus on stabilization and discharge planning. ROXANNE / TAYLOR: [id number] /
--- NOTE | 2018-12-02 17:59 | PN ---
PROGRESS NOTE DATE OF SERVICE: 12/02/2018 CHIEF COMPLAINT: The patient was manic, delusional and disorganized in thoughts and behavior. INTERVAL HISTORY: Patient has been doing fair. She slept 6 1/2 hours last night. Today she mostly has been in her room. She has been quiet with very little hyperactivity, loud voice, flight of ideas or other manic symptoms. She has napped on and off during the day. She has a quiet manner. Her mood is reserved. It is noted that in reviewing her case with Dr. Levy, he indicated that she had a previous hospitalization where she had severe depression and withdrawal that continued for 2 weeks, essentially unabated. Whether or not she is showing any signs of conversion from hermann to depression remains to be seen. She may be sedated relating to the increase in her Seroquel though she has tolerated the same dose in the last day or 2 without difficulty. She also may be showing some switch in manic symptoms. MENTAL STATUS: Patient was in her room lying down when I went to see her. She said a few things. She did not say much. She talked in a soft but clear voice. She did not really make an effort to answer questions. She made a few comments. Her affect was flat. Her mood reserved. It was difficult to say if she was distressed in any way. It was not clear whether she was showing depressive symptoms. There was no outward sign of manic or hypomanic symptoms. ASSESSMENT: I will continue the current diagnosis and treatment plan. I will continue psychotropic medications the same including Haldol Decanoate 50 mg IM with a dose due on 12/03/2018. She will continue Seroquel 300 mg 3 times a day. She is on Topamax 200 mg at bedtime though apparently she had declined taking the Topamax last evening. She is also on Benadryl 25 mg twice a day which I will discontinue. She is also on Cogentin 1 mg b.i.d. p.r.n. We will need to monitor when she gets her Haldol Decanoate whether she is showing any increase in the EPS symptoms and might warrant regular dosing of Cogentin. We will continue to focus on stabilization and discharge planning. MMODL / GORDONN: [id number] /
[2018-12-02] MEDS: TOPIRAMATE 100 MG TAB PO SCH ×2 (21:20→21:27)
[2018-12-02] MEDS: ATORVASTATIN 10 MG TAB PO SCH (21:20)
[2018-12-02] MEDS: ACETAMINOPHEN TAB 325 MG TAB PO PRN (21:28)
[2018-12-03] MEDS: LEVOTHYROXINE 75 MCG TAB PO SCH (07:50)
[2018-12-03] MEDS: RALOXIFENE 60 MG TAB PO SCH (08:21)
[2018-12-03] MEDS: QUEtiapine 100 MG TAB PO SCH ×3 (08:21→20:17)
[2018-12-03] MEDS: ACETAMINOPHEN TAB 325 MG TAB PO PRN (08:23)
[2018-12-03] MEDS ORDERED: HALOPERIDOL DECANOATE 50 MG/ML 1 ML VIAL IM SCH (09:00)
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
[2018-12-03 10:27] LABS: Basophils % (A) 1 %; Eosinophils # (A) 0.1 k/uL (0-0.7); Eosinophils % (A) 3 %; HCT 38.1 % (34.0-46.0); HGB 12.2 gm/dL (11.4-16.0); Lymphocytes # (A) 1.5 k/uL (1.0-4.8); Lymphocytes % (A) 45 %; MCH 27.7 pg (25.0-35.0); MCHC 31.9 g/dL (31.0-37.0); MCV 86.8 fL (80.0-100.0); Mean Platelet Volume 6.5; Monocytes # (A) 0.2 k/uL (0-1.0); Monocytes % (A) 6 %; Neutrophils # (A) 1.4 k/uL (1.3-7.7); Neutrophils % (A) 42 %; Platelet Count 295 k/uL (150-450); RBC 4.39 m/uL (3.80-5.40); RDW 15.7 % (11.5-15.5); WBC 3.4 k/uL (3.8-10.6)
[2018-12-03 10:36] LABS: Albumin 3.1 g/dL (3.5-5.0); Calcium 9.3 mg/dL (8.4-10.2); Potassium 4.9 mmol/L (3.5-5.1); Total Bilirubin 0.3 mg/dL (0.2-1.3); Total Protein 5.5 g/dL (6.3-8.2)
[2018-12-03] MEDS: VALPROIC ACID ORAL SOLN 250 MG/5 ML CUP PO SCH (17:26)
[2018-12-03] MEDS: ATORVASTATIN 10 MG TAB PO SCH (20:17)
[2018-12-04] MEDS: LEVOTHYROXINE 75 MCG TAB PO SCH ×2 (07:00→07:20)
[2018-12-04] MEDS: RALOXIFENE 60 MG TAB PO SCH (08:56)
[2018-12-04] MEDS: QUEtiapine 100 MG TAB PO SCH ×3 (08:56→21:12)
[2018-12-04] MEDS: ACETAMINOPHEN TAB 325 MG TAB PO PRN ×2 (08:57→21:12)
[2018-12-04] MEDS: VALPROIC ACID ORAL SOLN 250 MG/5 ML CUP PO SCH ×2 (09:00→20:23)
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
[2018-12-04 11:58] VITALS: BMI 21.9
[2018-12-04] MEDS: ATORVASTATIN 10 MG TAB PO SCH (21:12)
[2018-12-05] MEDS: LEVOTHYROXINE 75 MCG TAB PO SCH (06:35)
[2018-12-05] MEDS: RALOXIFENE 60 MG TAB PO SCH (08:04)
[2018-12-05] MEDS: QUEtiapine 100 MG TAB PO SCH ×3 (08:04→21:06)
[2018-12-05] MEDS: ACETAMINOPHEN TAB 325 MG TAB PO PRN ×2 (08:05→21:22)
[2018-12-05] MEDS: VALPROIC ACID ORAL SOLN 250 MG/5 ML CUP PO SCH ×2 (08:06→17:09)
--- NOTE | 2018-12-05 11:40 | P.PN ---
Subjective Progress Note Date: 12/05/18 Principal diagnosis: Bipolar affective disorder psychotic Presentation is irritable and agitated delusional and psychotic 12/04/2018: Patient on adherent to medications and stated I'm not taking any medications however she is taking her Seroquel 300 mg 3 times a day but refuses her mood stabilizerDepakene 12/05/2018: Court demand hearing she is now court committed take all medications Objective - Vital Signs Vital signs: Vital Signs Temp 97.8 F 12/05/18 06:42 Pulse 85 12/05/18 06:42 Resp 14 12/05/18 06:42 BP 103/57 12/05/18 06:42 Pulse Ox 96 11/30/18 01:33 Intake & Output 12/04/18 12/05/18 12/05/18 18:59 06:59 18:59 Weight 56.1 kg - Labs CBC & Chem 7: 12/03/18 10:04 12/03/18 10:04 Assessment and Plan Assessment: History: Pt. had gone for appointment at [facility] with Dr. Jarquin and refused to get her shot. She walked out of his office and refused to be seen. He told family to bring to the hospital but pt. refused and her son went and filed petition and pt. was brought in on a belt picker order. Son also applied for guardianship. Pt. is manic and delusional. Pt. making statements about a cat burning up in house fire. Pt. admits she told the police to blow her away but denies suicidal thoughts. Home Medications Medication Instructions Recorded Confirmed Atorvastatin [Lipitor] 10 mg PO HS 06/11/18 11/12/18 Haloperidol Decanoate [Haldol D] 50 mg IM Q28D 11/12/18 11/12/18 Levothyroxine Sodium [Synthroid] 150 mg PO DAILY 11/12/18 11/12/18 OLANZapine 20 mg PO HS 11/12/18 11/12/18 lamoTRIgine [LaMICtal] 200 mg PO DAILY 11/12/18 11/12/18 Previous Rx's Medication Instructions Recorded Raloxifene [Evista] 60 mg PO DAILY #30 tab 05/30/18 Allergies Allergy/AdvReac Type Severity Reaction Status Date / Time Phenothiazines Allergy Unknown Verified 11/12/18 20:21 "Musculoskeletal Examination - Abnormal/Involuntary Movements: [none] Strength: [greater than antigravity (greater than/equal to 3/5) in all extremities] Muscle Tone: [no impairment Gait: [grossly normal Station: [grossly normal Mental Status Examination - General Appearance: [ bizarre, appears older than stated age Speech/Language: [rapid, rambled, expressive, loud] Attitude/Behavior: [cooperative, irritabl Mood: [depressed, euphoric, anxious, elated, irritable, angry, fearful, hopelessness] Affect: [lively, incongruent, labile Orientation: [time, person only, place situation] Thought Content: [ delusions Risk Factors: [denies suicidal (ideations, plan), and/or Homicidal (ideations, plan)] Perception: [wnl, ] Thought Processes: [concrete, circumstantial, tangential] Concentration/Attention Span: [ impaired] [Per observation and interview with the patient] Recent Memory: [wnl Remote Memory: [wnl] [past events, as related history] Intelligence: [average] [based on history, based on vocabulary, syntax, grammar , and content] Judgement: [ poor] [per patient's behavior/history of present illness] Insight: [ poor] [understanding severity of illness/history of present illness] Admitting Diagnosis: [bipolar-acute psychosis] Patient Strengths - Housing stability: [x] Able to vocalize needs: [x] Patient Limitations: [medication, non-compliance, pathological/unsupported environment, no interests, intellectual impairment, complicated medical illness , lack of social supports Initial Plan of Care: [admit involuntary to mental health. Petition, first clinical certification, second certification for involuntary admission to the psychiatric facility has been filled out and sent to the court. Per usual protocol she will have 15 minute checks. Evaluation by medicine, psychiatry, social work, nursing and in barron and milieu. She will be teamed by mouth especially team every Saturday through Saturday for evaluation of progress towards discharge disposition. She is refusing her Topamax and there is a shortage of haloperidol tablets in the hospital. She she still remains irritable and agitated and psychotic. additional 50 mg Haldol decanoate today along with changing her Depakene to 250 mg by mouth daily at bedtime. Resistant to care will probably have to take her to court on demand hearing which is today.12/05/2018 Estimated Length of Stay: [4 days] Initial Discharge Plan: [home, [facility] [facility], referred to therapist, she may belong in a long-term care at [facility] such as [facility] Prognosis: [ guarded] Justification for Inpatient Hospitalization - [Hallucinations, delusions, agitation, anxiety, depression resulting in significant loss of functioning.] [Dangerous to self, others, or property with need for controlled environment.] [Emotional or behavioral conditions and complications requiring 24 hour medical and nursing care.] [Need for special drug therapy, or other therapeutic program requiring continuous hospitalization.] [Failure of social or occupational functioning.] [Inability to meet basic life and health needs.] [Legally mandated admission.] (1) Bipolar I disorder, most recent episode manic Current Visit: Yes Status: Acute Priority: High Code(s): F31.10 - BIPOLAR DISORD, CRNT EPISODE MANIC W/O PSYCH FEATURES, UNSP SNOMED Code(s): 018392513 Plan: The treatment team will take her back probate Court didn't order for treatment she is refusing take Topamax and on-call doctor changed her to Seroquel 300 mg 3 times a day Will discontinue Haldol decanoate. Ordered CBC CMP and Topamax blood level but considering she has not been taking her Topamax this may be a mute point. Will changed to Depakene syrup. She was seen in court today 2018 and was mandated take her medications. She remains angry irritable and agitated screaming and noncompliant. Time with Patient: Less than 30
[2018-12-05] MEDS: ATORVASTATIN 10 MG TAB PO SCH (21:06)
[2018-12-06] MEDS: LEVOTHYROXINE 75 MCG TAB PO SCH (07:16)
[2018-12-06] MEDS: ACETAMINOPHEN TAB 325 MG TAB PO PRN ×2 (08:23→20:44)
[2018-12-06] MEDS: RALOXIFENE 60 MG TAB PO SCH (08:23)
[2018-12-06] MEDS: VALPROIC ACID ORAL SOLN 250 MG/5 ML CUP PO SCH ×2 (08:23→16:48)
[2018-12-06] MEDS: QUEtiapine 100 MG TAB PO SCH ×3 (08:23→20:38)
--- NOTE | 2018-12-06 14:03 | P.PN ---
Progress Note - Text Interval history: The patient's is found in her room. She indicates her mood is better she feels that things are improving. She is apologetic for making statements "when I was sick". She states that her son went to court on her behalf she does have a treatment order issued. She indicates she's been compliant with her medication. It appears she took her medication last night and this morning. Throughout the day she has been quiet and demonstrating no hyperactive/aggressive behavior. Mental status exam: The patient's is short statured female appearing her stated age. She seated at the end of her bed she is dressed in her own clothing. She is pleasant cooperative easily directed. She indicates her mood is better. She is reporting no suicidal or homicidal thoughts. She is happy to report that she finds her thoughts are not racing. She indicates feeling safe overall. She demonstrates no verbal or physical aggressiveness. She is demonstrating no involuntary repetitive movements. Insight and judgment improving. Plan: The patient will continue on her current medication. We will monitor her compliance with medication. She is encouraged to participate in the milieu. Vital signs reviewed. Overall she does appear to be stabilizing.
[2018-12-06] MEDS: ATORVASTATIN 10 MG TAB PO SCH (20:38)
[2018-12-07] MEDS: LEVOTHYROXINE 75 MCG TAB PO SCH (06:46)
[2018-12-07] MEDS: VALPROIC ACID ORAL SOLN 250 MG/5 ML CUP PO SCH ×2 (09:21→15:28)
[2018-12-07] MEDS: QUEtiapine 100 MG TAB PO SCH ×3 (09:21→20:40)
[2018-12-07] MEDS: RALOXIFENE 60 MG TAB PO SCH (09:21)
--- NOTE | 2018-12-07 12:47 | P.PN ---
Progress Note - Text Interval history: The patient is found in her room she indicates that her mood has stabilized. She states she is no longer having racing thoughts but feels like the medication may be too sedating. We reviewed the Seroquel and the Depakote. Her questions were answered. Lately she has been much more directable. She has not been hyperverbal. She continues to repeat that she would like to go home. She continues to describe her son's involvement in her recent court hearing pertaining to treatment. Mental status exam: The patient is a shorter statured female appearing her stated age. She is dressed in her own clothing hygiene grooming adequate. Eye contact is appropriate. She indicates her mood is much improved she is reporting no racing thoughts. She is somewhat perseverative. She was not pressured. She demonstrated no verbal or physical aggressiveness. She is reporting no auditory or visual hallucinations she is endorsing no suicidal or homicidal ideation. Insight and judgment improving. Plan: The patient's is demonstrating clinical improvement. Consideration could be given to reducing the Seroquel dose if she continues to complain of sedation throughout the day. Vital signs reviewed we will watch for orthostasis. We will continue to monitor her for safety and encourage participation in the milieu.
[2018-12-07] MEDS: ACETAMINOPHEN TAB 325 MG TAB PO PRN (20:40)
[2018-12-07] MEDS: ATORVASTATIN 10 MG TAB PO SCH (20:40)
[2018-12-08] MEDS: LEVOTHYROXINE 75 MCG TAB PO SCH (05:53)
[2018-12-08] MEDS: QUEtiapine 100 MG TAB PO SCH ×3 (07:50→21:01)
[2018-12-08] MEDS: VALPROIC ACID ORAL SOLN 250 MG/5 ML CUP PO SCH (07:50)
[2018-12-08] MEDS: RALOXIFENE 60 MG TAB PO SCH (07:50)
--- NOTE | 2018-12-08 12:31 | P.PN ---
Subjective Progress Note Date: 12/08/18 Principal diagnosis: Bipolar affective disorder psychotic Presentation is irritable and agitated delusional and psychotic 12/04/2018: Patient on adherent to medications and stated I'm not taking any medications however she is taking her Seroquel 300 mg 3 times a day but refuses her mood stabilizerDepakene 12/05/2018: Court demand hearing she is now court committed take all medications 12/08/2018: She is able to respond in a calm fashion denies any suicidal homicidal ideation feels that her mood is much improved but is still focused on leaving as soon as possible. Objective - Vital Signs Vital signs: Vital Signs Temp 98.1 F 12/08/18 06:15 Pulse 91 12/08/18 06:15 Resp 18 12/08/18 06:15 BP 83/54 12/08/18 06:15 Pulse Ox 96 11/30/18 01:33 - Labs CBC & Chem 7: 12/03/18 10:04 12/03/18 10:04 Assessment and Plan Assessment: "Musculoskeletal Examination - Abnormal/Involuntary Movements: [none] Strength: [greater than antigravity (greater than/equal to 3/5) in all extremities] Muscle Tone: [no impairment Gait: [grossly normal Station: [grossly normal Mental Status Examination - General Appearance: [ less bizarre, appears older than stated age Speech/Language: [Less rapid, rambled, loud] Attitude/Behavior: [cooperative after court over taking medications Mood: [depressed, anxious Affect: [lively, remains labile Orientation: [time, person , place situation] Thought Content: [ less delusions Risk Factors: [denies suicidal (ideations, plan), and/or Homicidal (ideations, plan)] Perception: [wnl, ] Thought Processes: [Less concrete] Concentration/Attention Span: [Improving ] [Per observation and interview with the patient] Recent Memory: [wnl Remote Memory: [wnl] [past events, as related history] Intelligence: [average] [based on history, based on vocabulary, syntax, grammar , and content] Judgement: [ Fair] [per patient's behavior/history of present illness] Insight: [ Fair] [understanding severity of illness/history of present illness] Admitting Diagnosis: [bipolar-acute psychosisslowly resolving] Initial Plan of Care: [admit involuntary to mental health. Petition, first clinical certification, second certification for involuntary admission to the psychiatric facility has been filled out and sent to the court. Per usual protocol she will have 15 minute checks. Evaluation by medicine, psychiatry, social work, nursing and in [place] and milieu. She will be teamed by mouth especially team every Saturday through Saturday for evaluation of progress towards discharge disposition. She is refusing her Topamax and there is a shortage of haloperidol tablets in the hospital. She she still remains irritable and agitated and psychotic. additional 50 mg Haldol decanoate today along with changing her Depakene to 250 mg by mouth daily at bedtime which she accomplished over the weekend taking. Resistant to care will probably have to take her to court on demand hearing which is today.12/05/2018 which happened and she is now taking her medications 06/2019 of Depakene and Seroquel 300 mg 3 times a day. Will changed today 12/08 to Depakote 500 mg extended release by mouth daily at bedtime. Patient is already with the recommendation. Benefit risk ratio and recommended and was discussed with the patient and discussed with team this morning. (1) Bipolar I disorder, most recent episode manic Current Visit: Yes Status: Acute Priority: High Code(s): F31.10 - BIPOLAR DISORD, CRNT EPISODE MANIC W/O PSYCH FEATURES, UNSP SNOMED Code(s): 583732818 Plan: The treatment team will take her back probate Court didn't order for treatment she is refusing take Topamax and on-call doctor changed her to Seroquel 300 mg 3 times a day Will discontinue Haldol decanoate. Ordered CBC CMP and Topamax blood level but considering she has not been taking her Topamax this may be a mute point. Will changed to Depakene syrup. She was seen in court today 2018 and was mandated take her medications. She has not taken her medications which includes Depakote 250 mg twice a day and will changed to 500 mg extended release today 12/08/2018, continue Seroquel 300 mg 3 times a day. This has been a long complicated hospitalization due to her psychotic agitated delusional thinking. Today was the first time I have been able to have a good conversation with the patient without delusions interfering. ( 12/08/2018) Time with Patient: Less than 30
[2018-12-08] MEDS: DIVALPROEX ER 500 MG TAB.ER.24H PO SCH (21:01)
[2018-12-08] MEDS: ATORVASTATIN 10 MG TAB PO SCH (21:01)
[2018-12-08] MEDS: ACETAMINOPHEN TAB 325 MG TAB PO PRN (21:04)
[2018-12-09] MEDS: LEVOTHYROXINE 75 MCG TAB PO SCH (06:35)
[2018-12-09] MEDS: QUEtiapine 100 MG TAB PO SCH (08:18)
[2018-12-09] MEDS: RALOXIFENE 60 MG TAB PO SCH (08:18)
[2018-12-09] MEDS: ACETAMINOPHEN TAB 325 MG TAB PO PRN ×2 (08:18→21:23)
[2018-12-09 10:33] LABS: Valproic Acid (Depakene) 33.4 ug/mL
--- NOTE | 2018-12-09 11:25 | P.PN ---
Subjective Progress Note Date: 12/09/18 Principal diagnosis: Bipolar affective disorder psychotic Presentation is irritable and agitated delusional and psychotic 12/04/2018: Patient on adherent to medications and stated I'm not taking any medications however she is taking her Seroquel 300 mg 3 times a day but refuses her mood stabilizerDepakene 12/05/2018: Court demand hearing she is now court committed take all medications 12/08/2018: She is able to respond in a calm fashion denies any suicidal homicidal ideation feels that her mood is much improved but is still focused on leaving as soon as possible. 12/09/2018: She was found in her room hiding underneath the blankets and states that she does not shower here any longer because he showers unsafe. She wants to shower at her son's house [place] after the family meeting today. She is still rather focused and demanding and has little to no insight. She took her Depakote last night 500 mg and she states she is tired during daytime due to the Seroquel in the morning. Objective - Vital Signs Vital signs: Vital Signs Temp 97.9 F 12/09/18 06:45 Pulse 88 12/09/18 06:45 Resp 14 12/09/18 06:45 BP 107/61 12/09/18 06:45 Pulse Ox 96 12/08/18 11:12 - Labs CBC & Chem 7: 12/03/18 10:04 12/03/18 10:04 Assessment and Plan Assessment: "Musculoskeletal Examination - Abnormal/Involuntary Movements: [none] Strength: [greater than antigravity (greater than/equal to 3/5) in all extremities] Muscle Tone: [no impairment Gait: [grossly normal Station: [grossly normal Mental Status Examination - General Appearance: [ less bizarre, appears older than stated age Speech/Language: [still rapid, rambled, loud] Attitude/Behavior: [cooperative after court over taking medications Mood: [depressed, anxious Affect: [lively, remains labile Orientation: [time, person , place situation] Thought Content: [ delusions however remains fixated on leaving without reaching resolution of his symptoms Risk Factors: [denies suicidal (ideations, plan), and/or Homicidal (ideations, plan)] Perception: [wnl, ] Thought Processes: [Less concrete] Concentration/Attention Span: [Improving ] [Per observation and interview with the patient] Recent Memory: [wnl Remote Memory: [wnl] [past events, as related history] Intelligence: [average] [based on history, based on vocabulary, syntax, grammar , and content] Judgement: [ Fair] [per patient's behavior/history of present illness] Insight: [ Fair] [understanding severity of illness/history of present illness] Admitting Diagnosis: [bipolar-acute psychosisslowly resolving] Initial Plan of Care: [admit involuntary to mental health. Petition, first clinical certification, second certification for involuntary admission to the psychiatric facility has been filled out and sent to the court. Per usual protocol she will have 15 minute checks. Evaluation by medicine, psychiatry, social work, nursing and in [place] and milieu. She will be teamed by mouth especially team every Saturday through Saturday for evaluation of progress towards discharge disposition. She is refusing her Topamax and there is a shortage of haloperidol tablets in the hospital. She she still remains irritable and agitated and psychotic. additional 50 mg Haldol decanoate today along with changing her Depakene to 250 mg by mouth daily at bedtime which she accomplished over the weekend taking. Resistant to care will probably have to take her to court on demand hearing which is today.12/05/2018 which happened and she is now taking her medications 06/2019 of Depakene and Seroquel 300 mg 3 times a day. Will changed today 12/08 to Depakote 500 mg extended release by mouth daily at bedtime. Benefit risk ratio and recommended and was discussed with the patient and discussed with team this morning. Due to the fatigue that she gets from Seroquel 300 3 times daily and change to 800 mg Seroquel by mouth daily at bedtime. (1) Bipolar I disorder, most recent episode manic Current Visit: Yes Status: Acute Priority: High Code(s): F31.10 - BIPOLAR DISORD, CRNT EPISODE MANIC W/O PSYCH FEATURES, UNSP SNOMED Code(s): 235751726 Plan: The treatment team will take her back probate Court didn't order for treatment she is refusing take Topamax and on-call doctor changed her to Seroquel 300 mg 3 times a day Will discontinue Haldol decanoate. Ordered CBC CMP and Topamax blood level but considering she has not been taking her Topamax this may be a mute point. Will changed to Depakene syrup. She was seen in court today 2018 and was mandated take her medications. She has not taken her medications which includes Depakote 250 mg twice a day and will changed to 500 mg extended release today 12/08/2018, continue Seroquel 300 mg 3 times a day. This has been a long complicated hospitalization due to her psychotic agitated delusional thinking. Today was the first time I have been able to have a good conversation with the patient without delusions interfering. ( 12/08/2018) 12/09/2018 medicine will be changed to Seroquel 800 mg by mouth daily at bedtime and continue her Depakote 500 mg extended release at bedtime. It appears she is approaching resolution of symptoms but will see in the next 2 days whether she is ready for discharge. I did discuss with her that she has to go to groups before she is able to be discharged. Time with Patient: Less than 30
[2018-12-09] MEDS: QUEtiapine 400 MG TAB PO SCH (21:01)
[2018-12-09] MEDS: DIVALPROEX ER 500 MG TAB.ER.24H PO SCH (21:17)
[2018-12-09] MEDS: ATORVASTATIN 10 MG TAB PO SCH (21:17)
[2018-12-10] MEDS: LEVOTHYROXINE 75 MCG TAB PO SCH (06:44)
[2018-12-10] MEDS: ACETAMINOPHEN TAB 325 MG TAB PO PRN ×2 (08:28→20:11)
[2018-12-10] MEDS: RALOXIFENE 60 MG TAB PO SCH (08:28)
--- NOTE | 2018-12-10 10:26 | P.PN ---
Subjective Progress Note Date: 12/10/18 Principal diagnosis: Bipolar affective disorder psychotic Presentation is irritable and agitated delusional and psychotic 12/04/2018: Patient on adherent to medications and stated I'm not taking any medications however she is taking her Seroquel 300 mg 3 times a day but refuses her mood stabilizerDepakene 12/05/2018: Court demand hearing she is now court committed take all medications 12/08/2018: She is able to respond in a calm fashion denies any suicidal homicidal ideation feels that her mood is much improved but is still focused on leaving as soon as possible. 12/09/2018: She was found in her room hiding underneath the blankets and states that she does not shower here any longer because he showers unsafe. She wants to shower at her son's house [place] after the family meeting today. She is still rather focused and demanding and has little to no insight. She took her Depakote last night 500 mg and she states she is tired during daytime due to the Seroquel in the morning. 12/10/2018 she is again found in room hiding underneath the blankets. She is easily arousable and did not get her Seroquel at bedtime. There was some dizziness so the nurse and held her nighttime dose after calling the on-call doctor. Objective - Vital Signs Vital signs: Vital Signs Temp 97.6 F 12/10/18 06:47 Pulse 84 12/10/18 06:47 Resp 12 12/10/18 06:47 BP 114/60 12/10/18 06:47 Pulse Ox 96 12/08/18 11:12 - Labs CBC & Chem 7: 12/03/18 10:04 12/03/18 10:04 Assessment and Plan Assessment: "Musculoskeletal Examination - Abnormal/Involuntary Movements: [none] Strength: [greater than antigravity (greater than/equal to 3/5) in all extremities] Muscle Tone: [no impairment Gait: [grossly normal Station: [grossly normal Mental Status Examination - General Appearance: [ less bizarre, appears older than stated age Speech/Language: [still rapid, rambled, loud] Attitude/Behavior: [cooperative after court over taking medications Mood: [depressed, anxious Affect: [lively, remains labile Orientation: [time, person , place situation] Thought Content: [ delusions however remains fixated on leaving without reaching resolution of his symptoms Risk Factors: [denies suicidal (ideations, plan), and/or Homicidal (ideations, plan)] Perception: [wnl, ] Thought Processes: [Less concrete] Concentration/Attention Span: [Improving ] [Per observation and interview with the patient] Recent Memory: [wnl Remote Memory: [wnl] [past events, as related history] Intelligence: [average] [based on history, based on vocabulary, syntax, grammar , and content] Judgement: [ Fair] [per patient's behavior/history of present illness] Insight: [ Fair] [understanding severity of illness/history of present illness] Admitting Diagnosis: [bipolar-acute psychosisslowly resolving] Initial Plan of Care: [admit involuntary to mental health. Petition, first clinical certification, second certification for involuntary admission to the psychiatric facility has been filled out and sent to the court. Per usual protocol she will have 15 minute checks. Evaluation by medicine, psychiatry, social work, nursing and in [place] and milieu. She will be teamed by mouth especially team every Saturday through Saturday for evaluation of progress towards discharge disposition. She is refusing her Topamax and there is a shortage of haloperidol tablets in the hospital. She she still remains irritable and agitated and psychotic. additional 50 mg Haldol decanoate today along with changing her Depakene to 250 mg by mouth daily at bedtime which she accomplished over the weekend taking. Resistant to care will probably have to take her to court on demand hearing which is today.12/05/2018 which happened and she is now taking her medications 06/2019 of Depakene and Seroquel 300 mg 3 times a day. Will changed today 12/08 to Depakote 500 mg extended release by mouth daily at bedtime. Benefit risk ratio and recommended and was discussed with the patient and discussed with team this morning. Due to the fatigue that she gets from Seroquel 300 3 times daily and change to 800 mg Seroquel by mouth daily at bedtime. (1) Bipolar I disorder, most recent episode manic Current Visit: Yes Status: Acute Priority: High Code(s): F31.10 - BIPOLAR DISORD, CRNT EPISODE MANIC W/O PSYCH FEATURES, UNSP SNOMED Code(s): 235057649 Plan: The treatment team will take her back probate Court didn't order for treatment she is refusing take Topamax and on-call doctor changed her to Seroquel 300 mg 3 times a day Will discontinue Haldol decanoate. Ordered CBC CMP and Topamax blood level but considering she has not been taking her Topamax this may be a mute point. Will changed to Depakene syrup. She was seen in court today 2018 and was mandated take her medications. She has not taken her medications which includes Depakote 250 mg twice a day and will changed to 500 mg extended release today 12/08/2018, continue Seroquel 300 mg 3 times a day. This has been a long complicated hospitalization due to her psychotic agitated delusional thinking. Today was the first time I have been able to have a good conversation with the patient without delusions interfering. ( 12/08/2018) 12/09/2018 medicine will be changed to Seroquel 800 mg by mouth daily at bedtime and continue her Depakote 500 mg extended release at bedtime. It appears she is approaching resolution of symptoms but will see in the next 2 days whether she is ready for discharge. I did discuss with her that she has to go to groups before she is able to be discharged. 12/10/2018: She did not receive her Seroquel 800 mg at nighttime due to the fact she was dizzy. Thus today she is hyper excitable belligerent and somewhat agitated. We'll attempt to make sure she gets her medicines tonight. Time with Patient: Less than 30
[2018-12-10] MEDS: DIVALPROEX ER 500 MG TAB.ER.24H PO SCH (20:10)
[2018-12-10] MEDS: QUEtiapine 400 MG TAB PO SCH (20:10)
[2018-12-10] MEDS: ATORVASTATIN 10 MG TAB PO SCH (20:10)
[2018-12-11] MEDS: LEVOTHYROXINE 75 MCG TAB PO SCH (06:44)
[2018-12-11 06:55] VITALS: BP 100/58; PULSE 100; RESP 18; TEMP 97.7
[2018-12-11] MEDS: RALOXIFENE 60 MG TAB PO SCH (08:16)
[2018-12-11] MEDS: ACETAMINOPHEN TAB 325 MG TAB PO PRN (08:16)
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
== END 2018-12-11 14:46 | disposition home or self-care (01) | DRG 885 ==
LOC: EC 20:10 → 3MHU 11-13 14:47
PROVIDERS: ADMIT Psychiatry & Neurology Psychiatry; ATTEND Psychiatry & Neurology Psychiatry
DX: F31.2 Bipolar disorder, current episode manic severe with psychotic features (principal); J44.9 Chronic obstructive pulmonary disease, unspecified; I45.81 Long QT syndrome; N18.9 Chronic kidney disease, unspecified; F41.9 Anxiety disorder, unspecified; E03.9 Hypothyroidism, unspecified; E78.5 Hyperlipidemia, unspecified; K21.9 Gastro-esophageal reflux disease without esophagitis; M85.80 Other specified disorders of bone density and structure, unspecified site; F17.200 Nicotine dependence, unspecified, uncomplicated; Z91.19 Patient's noncompliance with other medical treatment and regimen; Z79.810 Long term (current) use of selective estrogen receptor modulators (SERMs); Z79.890 Hormone replacement therapy; Z79.899 Other long term (current) drug therapy; Z98.891 History of uterine scar from previous surgery; Z87.81 Personal history of (healed) traumatic fracture; Z88.8 Allergy status to other drugs, medicaments and biological substances; Z82.49 Family history of ischemic heart disease and other diseases of the circulatory system; Z80.43 Family history of malignant neoplasm of testis
CPT/HCPCS: 36415; 80048; 80053; 80061; 80164; 80201; 80306; 80320; 81003; 82075; 83036; 83520; 83735; 84100; 84443; 84450; 84460; 85025; 93005; 96374; 96375; 96376; 99285

== ENCOUNTER 2019-04-01 09:13 | Inpatient (IN) | payer MEDICARE ==
[2019-04-01] MEDS ORDERED: HALOPERIDOL LACTATE 5 MG/ML 1 ML VIAL IM STA (09:29)
--- NOTE | 2019-04-01 09:36 | ED ---
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 Patient is currently manic. Patient was was received a shot of Haldol though some hours conveyed that she was refusing this. Family is here with patient who provides information patient has chronic history of bipolar disorder. They do feel that she is unstable at this time though she is not suicidal or homicidal. Denies any physical complain ts. Patient will not provide much information shift flight of ideas at this time. - Related Data Home Medications Medication Instructions Recorded Confirmed Atorvastatin [Lipitor] 10 mg PO HS 06/11/18 04/01/19 Levothyroxine Sodium [Synthroid] 150 mg PO DAILY 11/12/18 04/01/19 Acetaminophen Tab [Tylenol] 325 mg PO Q8HR 04/01/19 04/01/19 Divalproex Sodium [Depakote ER] 250 mg PO DAILY 04/01/19 04/01/19 Ferrous Sulfate [Feosol] 325 mg PO BID 04/01/19 04/01/19 Haloperidol Decanoate [Haldol D] 50 mg IM Q28D 04/01/19 04/01/19 Polyethylene Glycol 3350 [Miralax] 17 gm PO DAILY 04/01/19 04/01/19 Sennosides [Senna] 8.6 mg PO DAILY 04/01/19 04/01/19 Previous Rx's Medication Instructions Recorded Raloxifene [Evista] 60 mg PO DAILY #30 tab 05/30/18 Divalproex ER [Depakote ER] 500 mg PO 2100 30 Days #30 12/11/18 tab.er.24h QUEtiapine [SEROquel] 800 mg PO HS 30 Days #60 tab 12/11/18 Allergies Allergy/AdvReac Type Severity Reaction Status Date / Time Phenothiazines Allergy Unknown Verified 04/01/19 09:22 Review of Systems ROS Statement: Those systems with pertinent positive or pertinent negative responses have been documented in the HPI. ROS Other: All systems not noted in ROS Statement are negative. Past Medical History Past Medical History: COPD, GERD/Reflux, Hyperlipidemia, Musculoskeletal Disorder, Thyroid Disorder Additional Past Medical History / Comment(s): brittle teeth can not eat anything hard needs to have soft diet chronic kidney disease; Ostopenia, son stted pt was told to stop taking thyroid meds. History of Any Multi-Drug Resistant Organisms: None Reported Past Surgical History: Adenoidectomy, Breast Surgery, Section, Tonsillectomy Additional Past Surgical History / Comment(s): biopsy left breast-benign,c section, rhinoplasty Past Anesthesia/Blood Transfusion Reactions: No Reported Reaction Additional Past Anesthesia/Blood Transfusion Reaction / Comment(s): DOES NOT EVER WANT A BLOOD TRANSFUSION Past Psychological History: Anxiety, Bipolar, Schizophrenia Smoking Status: Current every day smoker - Past Family History Father History Unknown: Yes Family Medical History: Myocardial Infarction ([place]) Brother(s) Family Medical History: Cancer Additional Family Medical History / Comment(s): Brother had testicular cancer. General Exam Limitations: no limitations General appearance: alert, in no apparent distress, anxious Head exam: Present: atraumatic, normocephalic, normal inspection Eye exam: Present: normal appearance, PERRL, EOMI. Absent: scleral icterus, conjunctival injection, periorbital swelling ENT exam: Present: normal exam, mucous membranes moist Neck exam: Present: normal inspection. Absent: tenderness, meningismus, lymphadenopathy Respiratory exam: Present: normal lung sounds bilaterally. Absent: respiratory distress, wheezes, rales, rhonchi, stridor Cardiovascular Exam: Present: normal rhythm, tachycardia, normal heart sounds. Absent: systolic murmur, diastolic murmur, rubs, gallop, clicks Neurological exam: Present: alert, oriented X3, CN II-XII intact Psychiatric exam: Present: anxious, manic Skin exam: Present: warm, dry, intact, normal color. Absent: rash Course Vital Signs 04/01/19 04/01/19 09:17 12:32 Temperature 98.4 F Pulse Rate 146 H 120 H Respiratory 26 H 18 Rate Blood Pressure 153/102 110/86 O2 Sat by Pulse 98 96 Oximetry Medical Decision Making - Medical Decision Making Patient reevaluated by EPS and patient will be admitted for psychiatric treatment. Disposition Clinical Impression: Bipolar disorder, Bipolar I disorder, most recent episode manic Disposition: TRANSFER TO PSYCH HOSP/UNIT Condition: Stable Referrals: Saud Peng MD [Primary Care Provider] - 1-2 days
[2019-04-01] MEDS ORDERED: LORazepam 2 MG/ML INJ IM STA (10:10)
[2019-04-01 13:05] LABS: Amphetamine Screen,Urine Not Detected (NotDetected); Cocaine Screen,Urine Not Detected (NotDetected); Opiate Screen,Urine Not Detected (NotDetected); Phencyclidine Screen,Urine Not Detected (NotDetected); Urn Cannabinoid Scrn Not Detected (NotDetected)
[2019-04-01 13:06] LABS: Barbiturate Screen,Urine Not Detected (NotDetected); Benzodiazepines Screen,Urine Not Detected (NotDetected); Methadone Screen, Urine Not Detected (NotDetected); Oxycodone Screen, Urine Not Detected (NotDetected); Tricyclic Antidepressant,Urine Detected (NotDetected)
[2019-04-01] MEDS ORDERED: MAGNESIUM HYDROXIDE 2,400 MG/10 ML CUP PO PRN (13:16)
[2019-04-01] MEDS ORDERED: MAG HYDROX/AL HYDROX/SIMETH 30 ML CUP PO PRN (13:16)
[2019-04-01] MEDS ORDERED: LORazepam 1 MG TAB PO PRN (13:16)
[2019-04-01] MEDS ORDERED: HALOPERIDOL 5 MG TAB PO PRN (13:22)
[2019-04-01] MEDS ORDERED: HALOPERIDOL LACTATE 5 MG/ML 1 ML VIAL IM PRN (13:22)
[2019-04-01] MEDS ORDERED: LORazepam 2 MG/ML INJ IM PRN (13:25)
[2019-04-01] MEDS ORDERED: HALOPERIDOL DECANOATE 50 MG/ML 1 ML VIAL IM SCH (14:00)
[2019-04-01] MEDS: NICOTINE 14MG/24HR PATCH TRANSDERM SCH (15:53)
[2019-04-01] MEDS: ATORVASTATIN 10 MG TAB PO SCH (20:24)
[2019-04-01] MEDS: FERROUS SULFATE 325 MG TAB PO SCH (20:24)
[2019-04-01] MEDS ORDERED: DIVALPROEX ER 500 MG TAB.ER.24H PO SCH (21:00)
[2019-04-01] MEDS ORDERED: QUEtiapine 400 MG TAB PO SCH (21:00)
[2019-04-02] MEDS ORDERED: DIVALPROEX ER 250 MG TAB.ER.24H PO SCH (09:00)
[2019-04-02 09:34] LABS: Basophils % (A) 1 %; Eosinophils # (A) 0.2 k/uL (0-0.7); Eosinophils % (A) 4 %; HCT 39.6 % (34.0-46.0); Lymphocytes # (A) 2.3 k/uL (1.0-4.8); Lymphocytes % (A) 49 %; MCH 29.7 pg (25.0-35.0); MCHC 32.7 g/dL (31.0-37.0); MCV 90.6 fL (80.0-100.0); Monocytes # (A) 0.4 k/uL (0-1.0); Monocytes % (A) 8 %; Neutrophils # (A) 1.6 k/uL (1.3-7.7); Neutrophils % (A) 35 %; Platelet Count 283 k/uL (150-450); RBC 4.37 m/uL (3.80-5.40); WBC 4.7 k/uL (3.8-10.6)
[2019-04-02 09:35] LABS: ALT 24 U/L (9-52); AST 29 U/L (14-36); Albumin 3.3 g/dL (3.5-5.0); Alkaline Phosphatase 106 U/L (38-126); Anion Gap 9 mmol/L; Bilirubin, Delta 0.1 mg/dL (0.0-0.2); Bilirubin,Unconjugated 0.3 mg/dL (0.0-1.1); Blood Urea Nitrogen 25 mg/dL (7-17); Calcium 9.1 mg/dL (8.4-10.2); Carbon Dioxide 22 mmol/L (22-30); Chloride 108 mmol/L (98-107); Cholesterol 158 mg/dL (<200); Glucose 97 mg/dL (74-99); HDL Cholesterol 69 mg/dL (40-60); LDL Cholesterol,Calculated 76 mg/dL (0-99); Potassium 3.9 mmol/L (3.5-5.1); Sodium 139 mmol/L (137-145); Total Bilirubin 0.4 mg/dL (0.2-1.3); Triglycerides 66 mg/dL (<150)
[2019-04-02] MEDS: FERROUS SULFATE 325 MG TAB PO SCH ×2 (09:48→21:53)
[2019-04-02 09:54] LABS: Valproic Acid (Depakene) 34.7 ug/mL
[2019-04-02] MEDS: NICOTINE 14MG/24HR PATCH TRANSDERM SCH (09:54)
[2019-04-02] MEDS: SENNOSIDES 8.6 MG TAB PO SCH (09:55)
[2019-04-02] MEDS: RALOXIFENE 60 MG TAB PO SCH (09:56)
[2019-04-02] MEDS: POLYETHYLENE GLYCOL 3350 17 GM POWD.PACK PO SCH (09:56)
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
[2019-04-02 14:02] VITALS: BMI 26.2
[2019-04-02 18:44] LABS: Hemoglobin A1C 5.6 % (4.0-6.0)
--- NOTE | 2019-04-02 21:21 | CONS ---
CONSULTATION CHIEF COMPLAINT: Bipolar depression, schizophrenia. HISTORY OF PRESENT ILLNESS: This is another of many admissions for this 68-year-old white female with a long standing history of psychiatric issues, bipolar depression and schizophrenia. She was last seen in the office in January. At that time, she was under somewhat better control. She is usually extremely anxious and manic. REVIEW OF SYSTEMS: Unobtainable because she is lethargic and half asleep. Past medical history, family history, personal and social history reveal that she is ALLERGIC TO PHENOTHIAZINES. It is not clear what medications she is on or if she has been taking them. She has been a steady light smoker. She does not drink alcohol. PHYSICAL EXAM: Blood pressure 123/74 with a pulse of 88, respirations of 16 and she is afebrile. In general, she appeared to be lethargic. Head, ears, eyes, nose, mouth, and throat were normal. Chest is clear. Cardiac exam demonstrated what sounded like sinus rhythm with no murmurs or extra sounds. Abdomen is soft and there are no masses. Extremities are normal. Neurologically she was lethargic. IMPRESSION: 1. Bipolar depression. 2. Adriane. 3. Schizophrenia. 4. History of hypothyroidism. 5. History of hyperlipidemia. RECOMMENDATIONS: None. T4 and TSH have been requested. MMODL / IJN: [id number] /
[2019-04-02] MEDS: BENZTROPINE MESYLATE 0.5 MG TAB PO SCH (21:53)
[2019-04-02] MEDS: DIVALPROEX ER 500 MG TAB.ER.24H PO SCH (21:54)
[2019-04-02] MEDS: ATORVASTATIN 10 MG TAB PO SCH (21:54)
[2019-04-03] MEDS: LEVOTHYROXINE 75 MCG TAB PO SCH (04:58)
[2019-04-03] MEDS: POLYETHYLENE GLYCOL 3350 17 GM POWD.PACK PO SCH (09:08)
[2019-04-03] MEDS: FERROUS SULFATE 325 MG TAB PO SCH ×2 (09:08→20:50)
[2019-04-03] MEDS: NICOTINE 14MG/24HR PATCH TRANSDERM SCH (09:08)
[2019-04-03] MEDS: RALOXIFENE 60 MG TAB PO SCH (09:08)
[2019-04-03] MEDS: SENNOSIDES 8.6 MG TAB PO SCH (09:08)
[2019-04-03] MEDS: BENZTROPINE MESYLATE 0.5 MG TAB PO SCH ×2 (09:09→20:50)
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
[2019-04-03] MEDS: DIVALPROEX ER 500 MG TAB.ER.24H PO SCH (20:50)
[2019-04-03] MEDS: ATORVASTATIN 10 MG TAB PO SCH (20:50)
[2019-04-04] MEDS: LEVOTHYROXINE 75 MCG TAB PO SCH (06:18)
[2019-04-04] MEDS: NICOTINE 14MG/24HR PATCH TRANSDERM SCH (08:41)
[2019-04-04] MEDS: FERROUS SULFATE 325 MG TAB PO SCH ×2 (08:41→20:41)
[2019-04-04] MEDS: SENNOSIDES 8.6 MG TAB PO SCH (08:41)
[2019-04-04] MEDS: RALOXIFENE 60 MG TAB PO SCH (08:41)
[2019-04-04] MEDS: BENZTROPINE MESYLATE 0.5 MG TAB PO SCH ×2 (08:41→20:41)
[2019-04-04] MEDS: POLYETHYLENE GLYCOL 3350 17 GM POWD.PACK PO SCH (11:07)
--- NOTE | 2019-04-04 17:42 | P.PN ---
Subjective Progress Note Date: 04/04/19 Principal diagnosis: Bipolar Disorder with psychotic features Found her very irritable and angry. Refused to talk to me. Very agitated , paranoid delusional. Did sleep good last night. Denies suicidal or homicidal ideaton MSE: Alert, awake, oriented in all spheres. Poor eye contact. Very guarded approach. Mood angry with congruent affect. Denies suicidal or homicidal ideation. Has psychoses. Insight and judgment limited A/P : Bipolar Disorder with psychoses Will continue to adjust medications accordingly Objective - Vital Signs Vital signs: Vital Signs Temp 97.8 F 04/04/19 04:33 Pulse 117 H 04/04/19 04:33 Resp 16 04/04/19 04:33 BP 110/70 04/04/19 04:33 Pulse Ox 96 04/01/19 12:32 - Labs CBC & Chem 7: 04/02/19 09:00 04/02/19 09:00
[2019-04-04] MEDS: ATORVASTATIN 10 MG TAB PO SCH (20:41)
[2019-04-04] MEDS: DIVALPROEX ER 500 MG TAB.ER.24H PO SCH (20:41)
[2019-04-05] MEDS: LEVOTHYROXINE 75 MCG TAB PO SCH (06:44)
[2019-04-05] MEDS: BENZTROPINE MESYLATE 0.5 MG TAB PO SCH ×2 (09:47→20:08)
[2019-04-05] MEDS: RALOXIFENE 60 MG TAB PO SCH (09:47)
[2019-04-05] MEDS: SENNOSIDES 8.6 MG TAB PO SCH (09:47)
[2019-04-05] MEDS: FERROUS SULFATE 325 MG TAB PO SCH ×2 (09:48→20:10)
[2019-04-05] MEDS: POLYETHYLENE GLYCOL 3350 17 GM POWD.PACK PO SCH (09:53)
[2019-04-05] MEDS: NICOTINE 14MG/24HR PATCH TRANSDERM SCH (09:53)
--- NOTE | 2019-04-05 14:04 | P.PN ---
Subjective Progress Note Date: 04/05/19 Principal diagnosis: Bipolar Disorder with psychotic features Found her very irritable and angry. Refused to talk to me. Very agitated , paranoid delusional. Did sleep good last night. Denies suicidal or homicidal ideaton MSE: Alert, awake, oriented in all spheres. Poor eye contact. Very guarded approach. Mood angry with congruent affect. Denies suicidal or homicidal ideation. Has psychoses. Insight and judgment limited A/P : Bipolar Disorder with psychoses Will continue to adjust medications accordingly Objective - Vital Signs Vital signs: Vital Signs Temp 97.7 F 04/05/19 00:42 Pulse 79 04/05/19 00:42 Resp 16 04/05/19 00:42 BP 120/65 04/05/19 00:42 Pulse Ox 96 04/01/19 12:32 Intake & Output 04/04/19 04/05/19 04/05/19 18:59 06:59 18:59 Weight 59.9 kg - Labs CBC & Chem 7: 04/02/19 09:00 04/02/19 09:00
[2019-04-05] MEDS: ACETAMINOPHEN TAB 325 MG TAB PO PRN (20:08)
[2019-04-05] MEDS: DIVALPROEX ER 500 MG TAB.ER.24H PO SCH (20:08)
[2019-04-05] MEDS: ATORVASTATIN 10 MG TAB PO SCH (20:08)
[2019-04-06] MEDS: LEVOTHYROXINE 75 MCG TAB PO SCH (06:45)
[2019-04-06] MEDS: FERROUS SULFATE 325 MG TAB PO SCH ×2 (09:25→19:49)
[2019-04-06] MEDS: POLYETHYLENE GLYCOL 3350 17 GM POWD.PACK PO SCH (09:25)
[2019-04-06] MEDS: SENNOSIDES 8.6 MG TAB PO SCH (09:25)
[2019-04-06] MEDS: BENZTROPINE MESYLATE 0.5 MG TAB PO SCH ×2 (09:25→19:48)
[2019-04-06] MEDS: NICOTINE 14MG/24HR PATCH TRANSDERM SCH (09:25)
[2019-04-06] MEDS: RALOXIFENE 60 MG TAB PO SCH (09:25)
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
[2019-04-06] MEDS: ATORVASTATIN 10 MG TAB PO SCH (19:48)
[2019-04-06] MEDS: ACETAMINOPHEN TAB 325 MG TAB PO PRN (19:49)
[2019-04-06] MEDS: DIVALPROEX ER 500 MG TAB.ER.24H PO SCH (19:49)
[2019-04-07 04:32] VITALS: RESP 18
[2019-04-07] MEDS: LEVOTHYROXINE 75 MCG TAB PO SCH (05:49)
[2019-04-07] MEDS: RALOXIFENE 60 MG TAB PO SCH (07:51)
[2019-04-07] MEDS: BENZTROPINE MESYLATE 0.5 MG TAB PO SCH ×2 (07:51→20:10)
[2019-04-07] MEDS: SENNOSIDES 8.6 MG TAB PO SCH (07:52)
[2019-04-07] MEDS: POLYETHYLENE GLYCOL 3350 17 GM POWD.PACK PO SCH (07:52)
[2019-04-07] MEDS: NICOTINE 14MG/24HR PATCH TRANSDERM SCH (07:52)
[2019-04-07] MEDS: FERROUS SULFATE 325 MG TAB PO SCH ×2 (07:52→20:11)
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
[2019-04-07] MEDS: DIVALPROEX ER 500 MG TAB.ER.24H PO SCH (20:09)
[2019-04-07] MEDS: ACETAMINOPHEN TAB 325 MG TAB PO PRN (20:10)
[2019-04-07] MEDS: ATORVASTATIN 10 MG TAB PO SCH (20:10)
[2019-04-08] MEDS: LEVOTHYROXINE 75 MCG TAB PO SCH (05:59)
[2019-04-08] MEDS: NICOTINE 14MG/24HR PATCH TRANSDERM SCH (10:43)
[2019-04-08] MEDS: FERROUS SULFATE 325 MG TAB PO SCH ×2 (10:43→20:50)
[2019-04-08] MEDS: SENNOSIDES 8.6 MG TAB PO SCH (10:43)
[2019-04-08] MEDS: BENZTROPINE MESYLATE 0.5 MG TAB PO SCH ×2 (10:43→20:48)
[2019-04-08] MEDS: RALOXIFENE 60 MG TAB PO SCH (10:43)
[2019-04-08] MEDS: POLYETHYLENE GLYCOL 3350 17 GM POWD.PACK PO SCH (10:43)
--- NOTE | 2019-04-08 11:09 | P.DS ---
Providers Date of admission: 04/01/19 12:58 Expected date of discharge: 04/08/19 Attending physician: Sagar Dueñas DO Consults: 04/01/19 13:16 Consult Physician Routine Consulting Provider: Saud Peng Consult Reason/Comments: H & P and medical care Do you want consulting provider notified?: Yes Primary care physician: Saud Peng - Discharge Diagnosis(es) (1) Bipolar disorder Allergies Allergy/AdvReac Type Severity Reaction Status Date / Time Phenothiazines Allergy Unknown Verified 04/01/19 09:22 Vital Signs Temp 98.4 F 04/01/19 09:17 Pulse 120 H 04/01/19 12:32 Resp 18 04/01/19 12:32 BP 110/86 04/01/19 12:32 Pulse Ox 96 04/01/19 12:32 Intake & Output 04/01/19 04/02/19 04/02/19 18:59 06:59 18:59 Weight 61.235 kg Laboratory Last Values Urine Opiates Screen Not Detected (NotDetected) 04/01/19 12:30 Ur Oxycodone Screen Not Detected (NotDetected) 04/01/19 12:30 Urine Methadone Screen Not Detected (NotDetected) 04/01/19 12:30 Ur Propoxyphene Screen Not Detected (NotDetected) 04/01/19 12:30 Ur Barbiturates Screen Not Detected (NotDetected) 04/01/19 12:30 U Tricyclic Antidepress Detected (NotDetected) H 04/01/19 12:30 Ur Phencyclidine Scrn Not Detected (NotDetected) 04/01/19 12:30 Ur Amphetamines Screen Not Detected (NotDetected) 04/01/19 12:30 U Methamphetamines Scrn Not Detected (NotDetected) 04/01/19 12:30 U Benzodiazepines Scrn Not Detected (NotDetected) 04/01/19 12:30 Urine Cocaine Screen Not Detected (NotDetected) 04/01/19 12:30 U Marijuana (THC) Screen Not Detected (NotDetected) 04/01/19 12:30 Assessment and Plan Assessment: This a 68-year-old female presents emergency Department from [facility] with [facility] and police department for psychiatric evaluation. Patient is currently manic. Patient was was received a shot of Haldol though some hours conveyed that she was refusing this. Family is here with patient who provides information patient has chronic history of bipolar disorder. They do feel that she is unstable at this time though she is not suicidal or homicidal. Denies any physical complaints. Patient will not provide much information shift flight of ideas at this time. - Related Data Home Medications Medication Instructions Recorded Confirmed Atorvastatin [Lipitor] 10 mg PO HS 06/11/18 04/01/19 Levothyroxine Sodium [Synthroid] 150 mg PO DAILY 11/12/18 04/01/19 Acetaminophen Tab [Tylenol] 325 mg PO Q8HR 04/01/19 04/01/19 Divalproex Sodium [Depakote ER] 250 mg PO DAILY 04/01/19 04/01/19 Ferrous Sulfate [Feosol] 325 mg PO BID 04/01/19 04/01/19 Haloperidol Decanoate [Haldol D] 50 mg IM Q28D 04/01/19 04/01/19 Polyethylene Glycol 3350 [Miralax] 17 gm PO DAILY 04/01/19 04/01/19 Sennosides [Senna] 8.6 mg PO DAILY 04/01/19 04/01/19 Previous Rx's Medication Instructions Recorded Raloxifene [Evista] 60 mg PO DAILY #30 tab 05/30/18 Divalproex ER [Depakote ER] 500 mg PO 2100 30 Days #30 12/11/18 tab.er.24h QUEtiapine [SEROquel] 800 mg PO HS 30 Days #60 tab 12/11/18 Allergies Allergy/AdvReac Type Severity Reaction Status Date / Time Phenothiazines Allergy Unknown Verified 04/01/19 09:22 Past Medical History Past Medical History: COPD, GERD/Reflux, Hyperlipidemia, Musculoskeletal Disorder, Thyroid Disorder Additional Past Medical History / Comment(s): brittle teeth can not eat anything hard needs to have soft diet chronic kidney disease; Ostopenia, son stted pt was told to stop taking thyroid meds. History of Any Multi-Drug Resistant Organisms: None Reported Past Surgical History: Adenoidectomy, Breast Surgery, Section, Tonsillectomy Additional Past Surgical History / Comment(s): biopsy left breast-benign,c section, rhinoplasty Past Anesthesia/Blood Transfusion Reactions: No Reported Reaction Additional Past Anesthesia/Blood Transfusion Reaction / Comment(s): DOES NOT EV ER WANT A BLOOD TRANSFUSION Past Psychological History: Anxiety, Bipolar, Schizophrenia Smoking Status: Current every day smoker - Past Family History Father History Unknown: Yes Family Medical History: Myocardial Infarction (DC) Brother(s) Family Medical History: Cancer Additional Family Medical History / Comment(s): Brother had testicular cancer. Musculoskeletal Examination - Abnormal/Involuntary Movements: [none] Strength: [greater than antigravity (greater than/equal to 3/5) in all extremities] Muscle Tone: [no impairment Gait: [grossly normal Station: [grossly normal Mental Status Examination - General Appearance: [ bizarre, appears older than stated age Speech/Language: [rapid, rambled, expressive, loud] Attitude/Behavior: [cooperative, irritabl Mood: [depressed, euphoric, anxious, elated, irritable, angry, fearful, hopelessness] Affect: [lively, incongruent, labile Orientation: [time, person only, place situation] Thought Content: [ delusions Risk Factors: [denies suicidal (ideations, plan), and/or Homicidal (ideations, plan)] Perception: [wnl, ] Thought Processes: [concrete, circumstantial, tangential] Concentration/Attention Span: [ impaired] [Per observation and interview with the patient] Recent Memory: [wnl Remote Memory: [wnl] [past events, as related history] Intelligence: [average] [based on history, based on vocabulary, syntax, grammar, and content] Judgement: [ poor] [per patient's behavior/history of present illness] Insight: [ poor] [understanding severity of illness/history of present illness] Admitting Diagnosis: [bipolar-acute psychosis] Current Visit: Yes Status: Acute Priority: Low (2) Acute psychosis Current Visit: No Status: Acute Priority: Low Hospital Course: Plan of Care: [admit involuntary to mental health. Petition, first clinical certification, second certification for involuntary admission to the psychiatric facility has been filled out and sent to the court. Per usual protocol she will have 15 minute checks. Ev valuation by medicine, psychiatry, social work, nursing and in barron and milieu. She will be teamed by mouth especially team every Saturday through Saturday for evaluation of progress towards discharge disposition. She will be placed on Haldol Decanoate 50 mg and Depakote will be titrated to therapeutic dose and awaiting lab results and change her dose to 1000 mg by mouth daily at bedtime of extended release Depakote. She was also added Cogentin 1 mg by mouth twice a day. 04/03/2019: She remains on 15 minute checks and has been sleeping most of the time that she's been in the psychiatric unit. She minimally participates in meals and very rarely in groups. Her Depakote was increased on thousand milligrams last night and she had a Haldol Decanoate on 04/02/2019. It will take several days for her to stabilize. 04/06/2019: She remains on 15 minute checks and has been withdrawn and isolating to room. She minimally participates with peers however has been talking with another peer over the last day. Will draw Depakote blood level tomorrow morning and haloperidol blood level and dose accordingly when those results come back. 04/07/2019: She remains on 15 minute checks and has been withdrawn and isolating to her room but has made greater attempt today to interact with other people. Awaiting for lab draws whereby she refused and she cannot refuse any lab draws because she is court ordered. Today's valproic acid level is 75 which is close to therapeutic. Mental status examination time of discharge 04/08/2019 at 11:08 AM: The patient presents alert, pleasant, and cooperative. There calmly seated without any agitated behavior. She reports that [her] mood is good. Affect is congruent and euthymic. [She] deny having any suicidal or homicidal ideation intent or plan. [She] denies any auditory or visual hallucinations. There is no evidence of any delusional thought content. [Her] thought process is linear and goal-directed. [Her] speech is fluent and nonpressured. [Her] memory and concentration is grossly intact for the purposes of this session. ] Patient Condition at Discharge: Stable Plan - Discharge Summary Discharge Rx Participant: Yes New Discharge Prescriptions: New Benztropine Mesylate [Cogentin] 0.5 mg PO BID 30 Days #60 tab Divalproex ER [Depakote ER] 1,000 mg PO 2100 30 Days #60 tab.er.24h Levothyroxine Sodium [Synthroid] 150 mcg PO DAILY@0630 tab Continue Raloxifene [Evista] 60 mg PO DAILY #30 tab Atorvastatin [Lipitor] 10 mg PO HS Sennosides [Senna] 8.6 mg PO DAILY Polyethylene Glycol 3350 [Miralax] 17 gm PO DAILY Ferrous Sulfate [Feosol] 325 mg PO BID Haloperidol Decanoate [Haldol D] 50 mg IM Q28D 28 Days #1 vial Discontinued Levothyroxine Sodium [Synthroid] 150 mg PO DAILY Divalproex ER [Depakote ER] 500 mg PO 2100 30 Days #30 tab.er.24h QUEtiapine [SEROquel] 800 mg PO HS 30 Days #60 tab Divalproex Sodium [Depakote ER] 250 mg PO DAILY Acetaminophen Tab [Tylenol] 325 mg PO Q8HR Discharge Medication List Raloxifene [Evista] 60 mg PO DAILY #30 tab 05/30/18 [Rx] Atorvastatin [Lipitor] 10 mg PO HS 06/11/18 [History] Ferrous Sulfate [Feosol] 325 mg PO BID 04/01/19 [History] Polyethylene Glycol 3350 [Miralax] 17 gm PO DAILY 04/01/19 [History] Sennosides [Senna] 8.6 mg PO DAILY 04/01/19 [History] Benztropine Mesylate [Cogentin] 0.5 mg PO BID 30 Days #60 tab 04/08/19 [Rx] Divalproex ER [Depakote ER] 1,000 mg PO 2100 30 Days #60 tab.er.24h 04/08/19 [Rx] Haloperidol Decanoate [Haldol D] 50 mg IM Q28D 28 Days #1 vial 04/08/19 [Rx] Levothyroxine Sodium [Synthroid] 150 mcg PO DAILY@0630 tab 04/08/19 [Rx] Follow up Appointment(s)/Referral(s): [facility] [Outside] - 04/15/19 9:00 am (04-15-19 @ 9:00 with Yang Pardo 04-20-19 @@ 10:00 with Maira Willis ) Saud Peng MD [Primary Care Provider] - 1-2 days Patient Instructions/Handouts: Bipolar Disorder (DC), Brief Psychotic Disorder (DC), Suicide Prevention (DC) Activity/Diet/Wound Care/Special Instructions: Activity and diet as tolerated. No guns or weapons in the home. Refrain from alcohol and street drugs, not prescribed by your physician. Take all medications as prescribed. Attend all follow up appointments as scheduled. If in need of medications please go to your primary care physician, or your out patient psychiatric provider. If in crisis, please call Discharge Disposition: HOME SELF-CARE
[2019-04-08] MEDS: HALOPERIDOL 5 MG TAB PO SCH ×2 (16:51→20:49)
[2019-04-08] MEDS: ATORVASTATIN 10 MG TAB PO SCH (20:48)
[2019-04-08] MEDS: DIVALPROEX ER 500 MG TAB.ER.24H PO SCH (20:48)
[2019-04-08] MEDS: ACETAMINOPHEN TAB 325 MG TAB PO PRN (20:49)
[2019-04-08 20:53] VITALS: PULSE 116
[2019-04-09] MEDS: LEVOTHYROXINE 75 MCG TAB PO SCH (06:26)
[2019-04-09 07:00] VITALS: BP 102/67; TEMP 98
[2019-04-09] MEDS: RALOXIFENE 60 MG TAB PO SCH (07:38)
[2019-04-09] MEDS: HALOPERIDOL 5 MG TAB PO SCH (07:38)
[2019-04-09] MEDS: BENZTROPINE MESYLATE 0.5 MG TAB PO SCH (07:39)
[2019-04-09] MEDS: POLYETHYLENE GLYCOL 3350 17 GM POWD.PACK PO SCH (07:40)
[2019-04-09] MEDS: NICOTINE 14MG/24HR PATCH TRANSDERM SCH (07:40)
[2019-04-09] MEDS: FERROUS SULFATE 325 MG TAB PO SCH (07:40)
[2019-04-09] MEDS: SENNOSIDES 8.6 MG TAB PO SCH (07:41)
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
== END 2019-04-09 13:44 | disposition home or self-care (01) | DRG 885 ==
LOC: EC 09:13 → EEVIPCON 09:13 → 3MHU 12:58
PROVIDERS: ADMIT Psychiatry & Neurology Psychiatry; ATTEND Psychiatry & Neurology Psychiatry
DX: F31.5 Bipolar disorder, current episode depressed, severe, with psychotic features (principal); J44.9 Chronic obstructive pulmonary disease, unspecified; K21.9 Gastro-esophageal reflux disease without esophagitis; E78.5 Hyperlipidemia, unspecified; N18.9 Chronic kidney disease, unspecified; F41.9 Anxiety disorder, unspecified; R45.1 Restlessness and agitation; E03.9 Hypothyroidism, unspecified; F17.200 Nicotine dependence, unspecified, uncomplicated; Z79.899 Other long term (current) drug therapy; Z79.890 Hormone replacement therapy; Z91.19 Patient's noncompliance with other medical treatment and regimen; Z88.8 Allergy status to other drugs, medicaments and biological substances; Z82.49 Family history of ischemic heart disease and other diseases of the circulatory system; Z81.8 Family history of other mental and behavioral disorders
CPT/HCPCS: 80053; 80061; 80164; 80173; 80306; 82075; 82248; 83036; 84439; 84443; 85025; 96372; 99285